=== PATIENT | male | born 1955 | race Caucasian/White ===

== ENCOUNTER 2017-07-28 07:02 | Inpatient (IN) | payer BC ==
[2017-07-28] MEDS ORDERED: Nitroglycerin 2% Ointment 1 INCH/1 GM Packet ONE (07:22)
[2017-07-28 07:32] LABS: #Basophils 0.1 thou/uL (0.0-0.2); #Eosinphils 0.1 thou/uL (0.0-0.7); #Lymphocytes 0.7 thou/uL (1.20-3.40); #Monocytes 0.6 thou/uL (0.11-0.59); #Neutrophils 4.8 thou/uL (1.40-6.50); %Basophils 1.2 % (0.0-1.0); %Eosinophils 0.9 % (0.0-10.0); %Lymphocytes 11.7 % (21.0-51.0); %Monocytes 9.4 % (0.0-10.0); %Neutrophils 76.8 % (42.0-75.0); Hemoglobin 17.5 g/dL (14.0-18.0); Mean Corpuscular HGB CONC 35.1 g/dL (32.0-36.0); Mean Corpuscular Hemoglobin 33.7 pg (27.0-31.0); Mean Corpuscular Volume 95.8 fl (80.0-94.0); Platelet Count 202 thou/uL (130-400); RBC Distribution Width 12.1 % (11.5-14.5); Red Blood Cell (RBC) Count 5.21 mill/uL (4.70-6.10); White Blood Cell (WBC) Count 6.2 thou/uL (4.8-10.8)
[2017-07-28 07:50] LABS: ALT (SGPT) 20 U/L (8-55); AST (SGOT) 82 U/L (5-34); Albumin 4.6 g/dL (3.5-5.0); Alkaline Phosphatase 65 U/L (40-150); Anion Gap 14 mmol/L (10-20); BUN (Urea Nitrogen) 6 mg/dL (8.4-25.7); Bilirubin, Total 0.7 mg/dL (0.2-1.2); CK (CPK) 602 U/L (30-200); Calc. Creatinine Clearance 0 mL/min (70-130); Calcium 9.5 mg/dL (7.8-10.44); Carbon Dioxide 24 mmol/L (22-29); Chloride 94 mmol/L (98-107); Estimated GFR-MDRD Greater than 90; Globulin 2.7 g/dL (2.4-3.5); Glucose 99 mg/dL (70-105); Lipase 17 U/L (8-78); Potassium 4.4 mmol/L (3.5-5.1); Protein, Total 7.3 g/dL (6.0-8.3); Sodium 128 mmol/L (136-145)
[2017-07-28 07:57] LABS: CKMB 55.4 ng/mL (0-6.6); Troponin I 10.222 ng/mL (< 0.028)
--- NOTE | 2017-07-28 08:19 | RAD ---
PORTABLE CHEST 1 VIEW: DATE: 07/28/17. TIME: 7:31 a.m. HISTORY: Chest pain. FINDINGS: There are changes of median sternotomy. The heart size is normal. The aorta is tortuous. The lungs were expanded without focal areas of consolidation, pneumothorax, or pleural effusions. IMPRESSION: No radiographic evidence of acute cardiopulmonary process. POS: [facility]
[2017-07-28] MEDS ORDERED: Enoxaparin Sodium 80 MG/0.8 ML SYRINGE ONE ×2 (08:39→09:31)
[2017-07-28] MEDS ORDERED: Heparin 5,000 UNITS/ML VIAL ONE (08:56)
[2017-07-28] MEDS ORDERED: Heparin 25,000 units/D5W 500 ML IV SCH (09:15)
[2017-07-28] MEDS ORDERED: Ondansetron ODT 4 MG TAB PO PRN (09:27)
[2017-07-28] MEDS ORDERED: Sodium Chloride 0.65% Nasal 44 ML BOT EA NARE PRN (09:27)
[2017-07-28] MEDS ORDERED: Milk Of Magnesia 30 ML UDCUP PO PRN (09:27)
[2017-07-28] MEDS ORDERED: Artificial Tears 18 DROP/0.9 ML EA EYE PRN (09:27)
[2017-07-28] MEDS ORDERED: Acetaminophen 325 MG TAB PO PRN (09:27)
[2017-07-28] MEDS ORDERED: Labetalol HCl 100 MG/20 ML VIAL SLOW IVP PRN (09:27)
[2017-07-28] MEDS ORDERED: Zolpidem Tartrate 5 MG TAB PO PRN (09:27)
[2017-07-28] MEDS ORDERED: Ondansetron HCl/PF 4 MG/2 ML Vial IVP PRN (09:27)
[2017-07-28] MEDS ORDERED: Eucerin (Mineral Oil/Petrolatum,White) 30 gm Jar TOP PRN (09:27)
[2017-07-28] MEDS ORDERED: Chloraseptic Spray 180 ml Bottle PO PRN (09:27)
[2017-07-28] MEDS ORDERED: Diabetic Tussin 200 MG/10 ML UDCUP PO PRN (09:27)
[2017-07-28] MEDS ORDERED: cloNIDine 0.1 MG TAB PO PRN (09:27)
[2017-07-28] MEDS ORDERED: Loperamide HCl 2 MG CAP PO PRN (09:27)
[2017-07-28] MEDS ORDERED: Loratadine 10 MG TAB PO PRN (09:27)
[2017-07-28] MEDS ORDERED: HYDROcodone/Acetaminophen 5/325 mg Tablet PO PRN (09:27)
[2017-07-28] MEDS ORDERED: Nitroglycerin 0.4 MG TAB (25 Tab Bottle) SL PRN (09:27)
[2017-07-28] MEDS ORDERED: Senokot 8.6 MG TAB PO PRN (09:27)
[2017-07-28] MEDS ORDERED: Mag-Al 1200 mg/1200 mg/30 ML UDCUP PO PRN (09:27)
[2017-07-28] MEDS ORDERED: Nicotine 21 MG PATCH TD PRN (09:37)
--- NOTE | 2017-07-28 09:59 | HP ---
PRIMARY CARE PHYSICIAN: [facility]. REASON FOR ADMISSION: Non-STEMI. HISTORY OF PRESENT ILLNESS: A 61-year-old male who has history of coronary artery disease as well as he required a CABG x3 in 2006 and he reports that he has total of 7 stents. He was not taking any m edication for the last couple of years. The patient reports that when he was hospitalized in our [facility] in 2014 at that time he had a normal blood pressure without blood pressure medication and since then he stopped taking blood pressure medication and he did not check his vitals and even he did not see primary care physician or his dresser tender. Before that the patient was taking [address] Jenkins, but he has not seen him since . Even he did not make any appointment with primary care physician and he reports that he was not taking any medication. Last night around 9:00 p.m. he was having a little bit uncomfortable in his chest area which was retr osternal in location about 2/10 in intensity, but he was able to go to bed and around 3:00 a.m. he wo ke up with severe chest pain about 10/10 in intensity, which was pressure-like sensation associated w ith 1 episode of vomiting, nausea and diaphoresis. The pain was intense up until 6 a.m. in the morni ng which slowly subsided by that time. The patient decided to go to emergency room this morning arou nd 7, he came to ER. When he came to the ER at that time his pain was already improving and currentl y when I saw this patient in the emergency room he is completely pain free. Today in the emergency r oom routine blood tests showed [id number] elevation myocardial infarction. His troponin and CK-M B significantly elevated and he has low sodium. He was hypertensive. He denies any headache, focal motor symptoms or sensory symptoms. He denies any palpitation, dizziness, syncope. He denies any or thopnea, PND or leg swelling. He denies any fever or chills. He denies any cough. He denies any [place] I symptoms. He denies any constipation, diarrhea, melena, hematochezia. He denies any dyspnea on ex ertion. ALLERGIES: No known drug allergy. CURRENT HOME MEDICATIONS: Currently patient is not taking any prescribed or non-prescribed medicatio n. REVIEW OF SYSTEMS: The following complete review of systems was negative, unless otherwise mentioned in the HPI or below: Constitutional: Weight loss or gain, ability to conduct usual activities. Skin: Rash, itching. Eyes: Double vision, pain. ENT/Mouth: Nose bleeding, neck stiffness, pain, tenderness. Cardiovascular: Palpitations, dyspnea on exertion, orthopnea. Respiratory: Shortness of breath, wheezing, cough, hemoptysis, fever or night sweats. Gastrointestinal: Poor appetite, abdominal pain, heartburn, nausea, vomiting, constipation, or diarrhea. Genitourinary: Urgency, frequency, dysuria, nocturia. Musculoskeletal: Pain, swelling. Neurologic/Psychiatric: Anxiety, depression. Allergy/Immunologic: Skin rash, bleeding tendency. Please see my HPI for pertinent positive and negative. All other review of systems reviewed and nega tive except as mentioned in the HPI. PAST MEDICAL HISTORY: Coronary artery disease, required CABG in 2002 as well as several stents, hype rtension, dyslipidemia, tobacco abuse disorder, history of admission for cavitary pneumonia in 2014. PAST PSYCHIATRIC HISTORY: Reviewed and negative. PAST SURGICAL HISTORY: CABG x3 in 2001 or 2002. Patient had several stent placements with a cardiac catheterization. FAMILY HISTORY: The patient denies any strong family history of premature coronary artery disease, s troke or cancer. SOCIAL HISTORY: Patient is single. He smokes about 1 pack per day for last 30 years. He drinks alc ohol occasionally. He denies any other illicit drug abuse. He is working in [employer] and [employer]. PHYSICAL EXAMINATION: VITAL SIGNS: Currently, blood pressure 199/108, pulse 87, respiratory rate 18, temperature 98.8, sat uration 97% on room air, weight 77.1 kilograms. GENERAL: The patient is currently alert, awake, no obvious acute distress. HEENT: Head; normocephalic, atraumatic. Eyes: Pupils round, reactive to light. Extraocular muscle intact. ENT: Oropharynx within normal limits. Moist mucous membranes. No oral lesion, no pharyng eal erythema, no exudate. NECK: Supple, no JVD, no thyromegaly, no carotid bruit, no jugular venous distention. LUNGS: Few end expiratory wheezing heard, but no rhonchi, and no rales. CARDIAC: S1, S2 regular, slight tachycardia, no murmur, no gallop, no rub. ABDOMEN: Soft, bowel sounds present, nontender, nondistended. No organomegaly, no mass, no suprapub ic tenderness. BACK: Unremarkable, no CVA tenderness. EXTREMITIES: Upper extremity passive movement of all joints are normal. Lower extremities: No armand a. Good peripheral pulsation. SKIN: No skin rash. HEMATOLOGICAL: No lymphadenopathy. PSYCHIATRIC: Normal affect. SIGNIFICANT LABS: 1. EKG showing normal sinus rhythm, and LVH. 2. CBC: WBC 6.2, hemoglobin 17.5, platelet 202, MCV 95.8. BMP: Sodium 128, potassium 4.4, chlorid e 94, carbon dioxide 24, anion gap 14, BUN 6, creatinine 0.74, glucose 99, calcium 9.5. 3. LFTs: AST 82, ALT 20, alkaline phosphatase 65, albumin 4.6, lipase 17, CK 606. CK-MB 55.4, trop onin 10.222, BNP 134.8. Chest x-ray based on my review, no acute cardiopulmonary process. ASSESSMENT AND PLAN: 1. [id number] elevation myocardial infarction. The patient has classic history of angina which was acute onset recurrent and associated with a significantly abnormal troponin. At this point, the patient is chest pain free after emergency room treatment. In the emergency room we started with asp irin, Lovenox 1 mg/kg and nitroglycerin. Cardiology will be consulted. We will obtain echocardiogra phy. We will treat medically with aspirin, beta huber with metoprolol 25 mg twice daily, nitropatc h q.8 hourly, statin therapy with Lipitor 40 mg p.o. at bedtime and heparin drip as per Cardiology re commendation. The patient will need a cardiac catheterization either today or tomorrow. We will mon itor on telemetry floor. We will also add Plavix 75 mg p.o. daily. We will do serial cardiac enzyme s and check lipid profile tomorrow morning for risk stratification. 2. Coronary artery disease with a history of coronary artery bypass graft. The patient is not takin g any medication at this point and based on the above we started aspirin, Plavix, Lipitor, metoprolol , nitropatch on his regimen and based on echocardiographic we will also consider adding MYAH inhibitor . 3. Hyponatremia, hypochloremia, likely related with his chronic lung disease, but we will check urin alysis, sodium urine creatinine urine, osmolarity in serum and urine, TSH as a part of workup. 4. Hypertension. We are starting nitropatch, metoprolol 25 mg p.o. b.i.d. and we will consider usin g labetalol, and clonidine p.r.n. basis for high blood pressure. 5. Dyslipidemia. We will start Lipitor 40 mg p.o. at bedtime and check lipid profile tomorrow ramos gurrola. 6. Tobacco abuse disorder. Smoking cessation counseling given and we will offer nicotine patch if n eeded only. 7. Rhabdomyolysis. The patient has elevated total CK and AST also elevated and this is all related with his myocardial infarction and we will repeat total CK level tomorrow. Given the patient has carina vated BNP, we will avoid giving him too much fluid. We will also check TSH and if statin is getting worse, then we will consider holding statin therapy. 8. Deep venous thrombosis prophylaxis. Patient is already on heparin drip. 9. Gastrointestinal prophylaxis, Pepcid 20 mg p.o. b.i.d. 10. Code status: The patient is FULL CODE. Patient does not have any surrogate decision maker. Disposition plan based on clinical course. We are expecting the patient's stay in hospital more than 2 midnights. Plan of care discussed with the patient in detail.
[2017-07-28 10:19] LABS: Thyroid Stimulating Hormone 1.5719 uIU/mL (0.35-4.94)
[2017-07-28 11:23] LABS: Troponin I 21.933 ng/mL (< 0.028)
--- NOTE | 2017-07-28 12:03 | CON ---
DATE OF CONSULTATION: 07/28/2017 REASON FOR CONSULTATION: Non-ST elevation myocardial infarction. HISTORY OF PRESENT ILLNESS: Mr. Les Gillespie is a 61-year-old man with the above problem. Mr. Gillespie stated he had a history of previous bypass surgery and multiple stents implanted by Dr. Jenkins. 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 He states at about 9:00 last n ight he started having chest pain. The chest pain went all night, it intensified in the early mornin g hours. He came here to the hospital where he received aspirin. He received nitrates and the pain resolved. He is pain free now. PAST MEDICAL HISTORY: 1. The patient has a history of bypass surgery x3 [place] [address] Muro here at this hospital. 2. The patient said he had "7 stents" placed by Dr. Jenkins at [facility] in 2009 . MEDICATIONS: The patient states he has not been taking any medications, not even aspirin. He has not been getting followup. ALLERGIES: None known. SOCIAL HISTORY: He continues to smoke one pack of cigarettes per day. Alcohol negative. REVIEW OF SYSTEMS: CONSTITUTIONAL: No significant weight gain or loss. VISION: No changes. HEARING: No changes. PULMONARY: No cough or wheezing. GASTROINTESTINAL: No nausea, vomiting, diarrhea. SKIN: No rashes. NEUROLOGIC: No unilateral weakness or numbness. PSYCHIATRIC: No unusual depression or anxiety. HEMATOLOGIC: No unusual bruising. GENITOURINARY: No burning with urination. PHYSICAL EXAMINATION: GENERAL: This is a thin 61-year-old gentleman, looks older than his chronologic age. VITAL SIGNS: Blood pressure 150/80, pulse in the 60s. HEENT: Eyes; sclerae nonicteric. Mouth mucous membranes moist. NECK: Supple, no lymphadenopathy. LUNGS: Clear, no wheezing, rales or rhonchi. CARDIAC: Normal S1, normal S2. There is no murmur, rub or gallop. ABDOMEN: Soft, nontender. EXTREMITIES: No clubbing or cyanosis. There is no edema. Peripheral pulses are intact. SKIN: Warm and dry. PSYCHIATRIC: Mood and affect normal. PERTINENT LABORATORY: The EKG looks like what is a low atrial rhythm or junctional rhythm with inver ofelia P waves in lead 3 on the EKG at 8:01. Another EKG; however, the P-wave more normal, sinus rhythm . There is a Q-wave in aVL with T-wave inversions in that lead. Some very mild T-wave inversion in lead 1. Troponin level is 10.2. BNP 134.8, sodium 128. ASSESSMENT: 1. Previous coronary artery bypass grafting. 2. Previous stent implantation "7 stents" according to the patient. 3. Continued smoking. 4. Non-ST elevation myocardial infarction. 5. Hyponatremia. Sodium level 128. 6. Noncompliance as outlined above. PLAN: 1. Try and obtain old records. 2. Will need to go to cardiac catheterization lab, ideally would like to have further information ab out the location of the bypass graft and stents. 3. Anticoagulation either with heparin or Lovenox. 4. Will need to avoid excess free water. 5. We will go ahead and give him Plavix. 6. Statin. 7. Beta blockers. 8. Nitrates. 9. Antiplatelet drugs. 10. We will continue to follow with you.
[2017-07-28 14:08] LABS: Critical Call Chem Troponin I RESULT DECREASING; Troponin I 20.749 ng/mL (< 0.028)
[2017-07-28] MEDS: Nitroglycerin 2% Ointment 1 INCH/1 GM Packet TOP SCH ×2 (14:39→21:53)
[2017-07-28 14:53] VITALS: BMI 21.1
[2017-07-28] MEDS ORDERED: Enoxaparin Sodium 80 MG/0.8 ML SYRINGE SC SCH ×2 (18:30→21:00)
[2017-07-28] MEDS ORDERED: predniSONE 20 MG TAB PO SCH ×2 (18:30→23:55)
[2017-07-28] MEDS ORDERED: Famotidine 20 MG TAB PO SCH ×2 (18:30→21:00)
[2017-07-28] MEDS ORDERED: Clopidogrel Bisulfate 75 MG TAB PO SCH (18:30)
[2017-07-28] MEDS ORDERED: Enoxaparin Sodium 40 MG/0.4 ML SYRINGE SC SCH (18:30)
[2017-07-28 18:31] LABS: Bilirubin Negative (Negative); Blood, Urine Negative (Negative); Clarity CLEAR (Clear); Glucose, Urine (Dipstick) Negative (Negative); Leukocyte Negative (Negative); Nitrite Negative (Negative); Protein, Urine (Dipstick) Negative (Neg-Trace); Specific Gravity, Urine 1.008 (1.002-1.036); Urobilinogen 0.2 mg/dL (0.2-1.0); pH, Urine 6.5 (5.0-9.0)
[2017-07-28 18:34] LABS: Bacteria/HPF None Seen HPF (None Seen); Hyaline Casts/LPF 0-3 HYALINE CAST LPF (0-3 Hyaline); RBC/HPF 0-3 HPF (0-3); Squamous Epithelial None Seen HPF (0-3); WBC/HPF None Seen HPF (0-3)
[2017-07-28 18:40] LABS: Osmolality, Urine 368 mOsm/kg (300-900)
[2017-07-28 18:49] LABS: Sodium, Urine 57 mmol/L (Not Available)
[2017-07-28] MEDS ORDERED: Atorvastatin Calcium 40 MG TAB PO SCH (21:00)
[2017-07-28] MEDS: Metoprolol Tartrate 25 MG TAB PO SCH (21:53)
[2017-07-29] MEDS: Nitroglycerin 2% Ointment 1 INCH/1 GM Packet TOP SCH ×3 (05:40→21:53)
[2017-07-29] MEDS: Famotidine 20 MG TAB PO SCH ×2 (05:40→17:26)
[2017-07-29] MEDS: Sodium Chloride 0.9% 1,000 ML IV SCH ×2 (05:41→15:52)
[2017-07-29] MEDS: Metoprolol Tartrate 25 MG TAB PO SCH ×2 (05:41→21:53)
[2017-07-29] MEDS ORDERED: predniSONE 20 MG TAB PO SCH (06:00)
[2017-07-29] MEDS ORDERED: Diazepam 5 MG TAB PO SCH (06:00)
[2017-07-29 06:07] LABS: #Lymphocytes 0.4 thou/uL (1.20-3.40); #Monocytes 0.2 thou/uL (0.11-0.59); #Neutrophils 4.3 thou/uL (1.40-6.50); %Basophils 0.1 % (0.0-1.0); %Eosinophils 0.2 % (0.0-10.0); %Lymphocytes 7.1 % (21.0-51.0); %Neutrophils 87.6 % (42.0-75.0); Hemoglobin 17.5 g/dL (14.0-18.0); Mean Corpuscular HGB CONC 33.6 g/dL (32.0-36.0); Mean Corpuscular Hemoglobin 31.6 pg (27.0-31.0); Mean Corpuscular Volume 94.1 fl (80.0-94.0); Mean Platelet Volume 7.2 fL (7.4-10.4); Platelet Count 220 thou/uL (130-400); RBC Distribution Width 12.1 % (11.5-14.5); Red Blood Cell (RBC) Count 5.53 mill/uL (4.70-6.10); White Blood Cell (WBC) Count 4.9 thou/uL (4.8-10.8)
[2017-07-29 06:31] LABS: ALT (SGPT) 22 U/L (8-55); AST (SGOT) 72 U/L (5-34); Albumin 4.4 g/dL (3.5-5.0); Alkaline Phosphatase 62 U/L (40-150); Anion Gap 15 mmol/L (10-20); BUN (Urea Nitrogen) 10 mg/dL (8.4-25.7); Bilirubin, Total 0.7 mg/dL (0.2-1.2); CK (CPK) 252 U/L (30-200); Calc. Creatinine Clearance 86 mL/min (70-130); Calcium 9.9 mg/dL (7.8-10.44); Carbon Dioxide 26 mmol/L (22-29); Cardiac Risk 3.7 (Less than 4.5); Chloride 95 mmol/L (98-107); Cholesterol 215 mg/dl (< 200 Desired); Estimated GFR-MDRD 87; Globulin 2.7 g/dL (2.4-3.5); Glucose 140 mg/dL (70-105); HDL Cholesterol 58 mg/dL (>60 Neg Risk); LDL Cholesterol, Calculated 143 mg/dL; Potassium 4.8 mmol/L (3.5-5.1); Protein, Total 7.1 g/dL (6.0-8.3); Sodium 131 mmol/L (136-145); Triglycerides 69 mg/dL (Less than 150)
[2017-07-29] MEDS ORDERED: Lidocaine 1% (PF) 30 ML VIAL ONE (08:11)
[2017-07-29] MEDS ORDERED: Midazolam HCl 2 mg/2 ml Vial ONE (08:35)
[2017-07-29] MEDS ORDERED: Fentanyl 100 MCG/2 ML VIAL ONE (08:35)
[2017-07-29] MEDS ORDERED: diphenhydrAMINE 50 MG/ML VIAL ONE (08:47)
[2017-07-29] MEDS ORDERED: Iopamidol 370 76% 100 ML VIAL ONE (08:51)
--- NOTE | 2017-07-29 09:13 | PDOC.PN ---
- Subjective Encounter Start Date: 07/29/17 Encounter Start Time: 08:00 Patient seen and examined. No new complaints. No overnight events - Objective Resuscitation Status: Resuscitation Status FULL:Full Resuscitation MAR Reviewed: Yes Vital Signs & Weight: Vital Signs (12 hours) Temp Pulse Resp BP Pulse Ox 07/29/17 08:02 98.1 F 68 16 101/63 94 L 07/29/17 04:00 98.7 F 78 18 118/69 94 L 07/29/17 00:26 97.2 F L 80 20 119/73 96 Weight Weight 151 lb I&O: 07/28/17 07/29/17 07/30/17 06:59 06:59 06:59 Intake Total 970 Output Total 1700 Balance -730 Result Diagrams: 07/29/17 04:47 07/29/17 04:47 Radiology Reviewed by me: Yes (echo) EKG Reviewed by me: Yes (nsr) Phys Exam - Physical Examination Constitutional: NAD HEENT: PERRLA, moist MMs, sclera anicteric, oral pharynx no lesions Neck: no nodes, no JVD, supple, full ROM Respiratory: no wheezing, no rales, no rhonchi Cardiovascular: RRR, no significant murmur, no rub Gastrointestinal: soft, non-tender, no distention, positive bowel sounds Musculoskeletal: no edema, pulses present Neurological: non-focal, normal sensation, moves all 4 limbs Psychiatric: normal affect, A&O x 3 Skin: no rash, normal turgor Dx/Plan (1) NSTEMI (non-ST elevated myocardial infarction) Code(s): I21.4 - NON-ST ELEVATION (NSTEMI) MYOCARDIAL INFARCTION Status: Acute (2) Combined systolic and diastolic cardiac dysfunction Code(s): I51.89 - OTHER ILL-DEFINED HEART DISEASES Status: Acute (3) Hyponatremia Code(s): E87.1 - HYPO-OSMOLALITY AND HYPONATREMIA Status: Acute (4) Rhabdomyolysis Code(s): M62.82 - RHABDOMYOLYSIS Status: Acute (5) CAD (coronary artery disease) Code(s): I25.10 - ATHSCL HEART DISEASE OF [place] CORONARY ARTERY W/O ANG PCTRS Status: Chronic (6) Dyslipidemia Code(s): E78.5 - HYPERLIPIDEMIA, UNSPECIFIED Status: Chronic (7) Hypertension Code(s): I10 - ESSENTIAL (PRIMARY) HYPERTENSION Status: Chronic (8) Noncompliance with medication regimen Code(s): Z91.14 - PATIENT'S OTHER NONCOMPLIANCE WITH MEDICATION REGIMEN Status : Chronic (9) Tobacco abuse Code(s): Z72.0 - TOBACCO USE Status: Chronic - Plan cont current plan of care * continue current optimum medical therapy for NSTEMI * add lisinopril * cardiac cath today after preparation for contrast allergy * continue cardiac rehab * will monitor today * plan for discharge in 24-48 hours if stable * medication reviewed as below * symptomatic treatment. Review of Systems - Review of Systems Constitutional: negative: fever, chills, sweats, weakness, malaise, other ENT: negative: Ear Pain, Ear Discharge, Nose Pain, Nose Discharge, Nose Congestion, Mouth Pain, Mouth Swelling, Throat Pain, Throat Swelling, Other Respiratory: negative: Cough, Dry, Shortness of Breath, Hemoptysis, SOB with Excertion, Pleuritic Pain, Sputum, Wheezing Cardiovascular: negative: chest pain, palpitations, orthopnea, paroxysmal nocturnal dyspnea, edema, light headedness, other Gastrointestinal: negative: Nausea, Vomiting, Abdominal Pain, Diarrhea, Constipation, Melena, Hematochezia, Other Genitourinary: negative: Dysuria, Frequency, Incontinence, Hematuria, Retention , Other Musculoskeletal: negative: Neck Pain, Shoulder Pain, Arm Pain, Back Pain, Hand Pain, Leg Pain, Foot Pain, Other Skin: negative: Rash, Lesions, Jeff, Bruising, Other - Medications/Allergies Allergies/Adverse Reactions: Allergies Allergy/AdvReac Type Severity Reaction Status Date / Time Iodinated Contrast- Oral and Allergy Mild Verified 07/28/17 18:11 IV Dye Medications: Current Medications Acetaminophen (Tylenol) 650 mg PO Q4H PRN PRN Reason: Headache/Fever or Pain Hydrocodone Bitart/Acetaminophen ([place] 5/325) 1 tab PO Q4H PRN PRN Reason: Moderate Pain (4-6) Al Hydroxide/Mg Hydroxide (Maalox) 30 ml PO Q6H PRN PRN Reason: Heartburn or Indigestion Artificial Tears (Tears Naturale) 0 drop EA EYE PRN PRN PRN Reason: Dry Eyes Aspirin (Aspirin) 325 mg PO DAILY [facility] Atorvastatin Calcium (Lipitor) 40 mg PO HS [facility] Last Admin: 07/28/17 21:53 Dose: 40 mg Clonidine (Catapres) 0.1 mg PO Q4H PRN PRN Reason: Systolic BP > 180 Clopidogrel Bisulfate (Plavix) 75 mg PO QAM [facility] Diazepam (Valium) 5 mg PO 0600 [facility] Stop: 07/29/17 12:00 Last Admin: 07/29/17 08:10 Dose: 5 mg Famotidine (Pepcid) 40 mg PO 0600,1800 [facility] Last Admin: 07/29/17 05:40 Dose: 40 mg Guaifenesin (Robitussin Sf) 200 mg PO Q4H PRN PRN Reason: Cough Sodium Chloride (Normal Saline 0.9%) 1,000 mls @ 100 mls/hr IV .Q10H [facility] Last Admin: 07/29/17 05:41 Dose: 1,000 mls Labetalol HCl (Normodyne) 20 mg SLOW IVP Q4H PRN PRN Reason: Systolic BP > 180 Loperamide HCl (Imodium) 2 mg PO PRN PRN PRN Reason: Diarrhea/Loose Stools Loratadine (Claritin) 10 mg PO DAILYPRN PRN PRN Reason: Sinus Symptoms Magnesium Hydroxide (Milk Of Magnesium) 30 ml PO DAILYPRN PRN PRN Reason: Constipation Metoprolol Tartrate (Lopressor) 25 mg PO BID [facility] Last Admin: 07/29/17 05:41 Dose: 25 mg Mineral Oil/White Petrolatum (Eucerin Cream) 0 gm TOP BIDPRN PRN PRN Reason: Dry Skin Miscellaneous Information (Communication Order-Pharmacy) 0 each FS ONE [facility] Stop: 07/29/17 18:16 Nicotine (Nicoderm Patch) 21 mg TD DAILY PRN PRN Reason: Smoking Cessation Nitroglycerin (Nitrostat) 0.4 mg SL Q5MIN PRN PRN Reason: Chest Pain Nitroglycerin (Nitro-Bid 2% Ointment) 0.5 inch TOP Q8HR [facility] Last Admin: 07/29/17 05:40 Dose: 0.5 inch Ondansetron HCl (Zofran Odt) 4 mg PO Q6H PRN PRN Reason: Nausea/Vomiting Ondansetron HCl (Zofran) 4 mg IVP Q6H PRN PRN Reason: Nausea/Vomiting Phenol (Chloraseptic [place] 180 Ml Bot) 0 ml PO PRN PRN PRN Reason: Sore Throat Senna (Senokot) 2 tab PO HSPRN PRN PRN Reason: Constipation Sodium Chloride ([place] Nasal [place] 0.65%) 0 ml EA NARE QIDPRN PRN PRN Reason: Nasal Congestion Sodium Chloride (Flush - Normal Saline) 10 ml IVF Q12HR [facility] Last Admin: 07/28/17 21:53 Dose: 10 ml Sodium Chloride (Flush - Normal Saline) 10 ml IVF PRN PRN PRN Reason: Saline Flush Zolpidem Tartrate (Ambien) 5 mg PO HSPRN PRN PRN Reason: Insomnia
[2017-07-29] MEDS ORDERED: Acetaminophen/Codeine 30-300mg Tablet PO PRN ×2 (09:35)
[2017-07-29] MEDS ORDERED: Atorvastatin Calcium 40 MG TAB PO SCH (09:35)
[2017-07-29] MEDS ORDERED: traMADol HCl 50 MG TAB PO PRN (09:35)
[2017-07-29] MEDS ORDERED: Nitroglycerin 0.4 MG TAB (25 Tab Bottle) SL PRN (09:35)
[2017-07-29] MEDS ORDERED: Sodium Chloride 0.9% 200 ML IV SCH (09:45)
[2017-07-29] MEDS: Aspirin 325 MG TAB PO SCH (11:25)
[2017-07-29] MEDS: Clopidogrel Bisulfate 75 MG TAB PO SCH (11:25)
[2017-07-29] MEDS: Lisinopril 2.5 MG TAB PO SCH (11:26)
[2017-07-30] MEDS: Nitroglycerin 2% Ointment 1 INCH/1 GM Packet TOP SCH (05:55)
[2017-07-30] MEDS: Famotidine 20 MG TAB PO SCH (05:55)
[2017-07-30] MEDS: Lisinopril 2.5 MG TAB PO SCH (07:52)
[2017-07-30] MEDS: Metoprolol Tartrate 25 MG TAB PO SCH (07:52)
[2017-07-30] MEDS: Clopidogrel Bisulfate 75 MG TAB PO SCH (07:52)
[2017-07-30] MEDS: Aspirin 325 MG TAB PO SCH (07:52)
--- NOTE | 2017-07-30 09:12 | PDOC.PN ---
- Subjective Encounter Start Date: 07/30/17 Encounter Start Time: 07:20 Patient seen and examined. No new complaints. No overnight events - Objective Resuscitation Status: Resuscitation Status FULL:Full Resuscitation MAR Reviewed: Yes Vital Signs & Weight: Vital Signs (12 hours) Temp Pulse Resp BP Pulse Ox 07/30/17 07:52 65 07/30/17 07:50 98.4 F 65 17 115/60 96 07/30/17 03:48 98.2 F 80 18 107/58 L 97 07/30/17 00:00 98 F 58 L 19 106/56 L 97 Weight Weight 157 lb I&O: 07/29/17 07/30/17 07/31/17 06:59 06:59 06:59 Intake Total 970 2228 Output Total 1700 2975 Balance -730 -747 Result Diagrams: 07/29/17 04:47 07/29/17 04:47 EKG Reviewed by me: Yes (nsr) Phys Exam - Physical Examination Constitutional: NAD HEENT: PERRLA, moist MMs, sclera anicteric Neck: no JVD, supple Respiratory: no wheezing, no rales, no rhonchi Cardiovascular: RRR, no significant murmur, no rub Gastrointestinal: soft, non-tender, no distention, positive bowel sounds Musculoskeletal: no edema, pulses present Neurological: non-focal, normal sensation, moves all 4 limbs Lymphatic: no nodes Psychiatric: normal affect, A&O x 3 Skin: no rash, normal turgor Dx/Plan (1) NSTEMI (non-ST elevated myocardial infarction) Code(s): I21.4 - NON-ST ELEVATION (NSTEMI) MYOCARDIAL INFARCTION Status: Acute (2) Combined systolic and diastolic cardiac dysfunction Code(s): I51.89 - OTHER ILL-DEFINED HEART DISEASES Status: Acute (3) Hyponatremia Code(s): E87.1 - HYPO-OSMOLALITY AND HYPONATREMIA Status: Acute (4) Rhabdomyolysis Code(s): M62.82 - RHABDOMYOLYSIS Status: Acute (5) CAD (coronary artery disease) Code(s): I25.10 - ATHSCL HEART DISEASE OF [place] CORONARY ARTERY W/O ANG PCTRS Status: Chronic (6) Dyslipidemia Code(s): E78.5 - HYPERLIPIDEMIA, UNSPECIFIED Status: Chronic (7) Hypertension Code(s): I10 - ESSENTIAL (PRIMARY) HYPERTENSION Status: Chronic (8) Noncompliance with medication regimen Code(s): Z91.14 - PATIENT'S OTHER NONCOMPLIANCE WITH MEDICATION REGIMEN Status : Chronic (9) Tobacco abuse Code(s): Z72.0 - TOBACCO USE Status: Chronic - Plan cont current plan of care * medication reviewed as below * symptomatic treatment * s/p cardiac cath and medical therapy advised * will continue current optimum medical therapy and adjust dose of medication * will consider discharge tomorrow. Review of Systems - Review of Systems Eyes: negative: Pain, Vision Change, Conjunctivae Inflammation, Eyelid Inflammation, Redness, Other ENT: negative: Ear Pain, Ear Discharge, Nose Pain, Nose Discharge, Nose Congestion, Mouth Pain, Mouth Swelling, Throat Pain, Throat Swelling, Other Respiratory: negative: Cough, Dry, Shortness of Breath, Hemoptysis, SOB with Excertion, Pleuritic Pain, Sputum, Wheezing Cardiovascular: negative: chest pain, palpitations, orthopnea, paroxysmal nocturnal dyspnea, edema, light headedness, other Gastrointestinal: negative: Nausea, Vomiting, Abdominal Pain, Diarrhea, Constipation, Melena, Hematochezia, Other Genitourinary: negative: Dysuria, Frequency, Incontinence, Hematuria, Retention , Other Musculoskeletal: negative: Neck Pain, Shoulder Pain, Arm Pain, Back Pain, Hand Pain, Leg Pain, Foot Pain, Other Skin: negative: Rash, Lesions, Jeff, Bruising, Other - Medications/Allergies Allergies/Adverse Reactions: Allergies Allergy/AdvReac Type Severity Reaction Status Date / Time Iodinated Contrast- Oral and Allergy Mild Verified 07/28/17 18:11 IV Dye Medications: Current Medications Acetaminophen (Tylenol) 650 mg PO Q4H PRN PRN Reason: Headache/Fever Acetaminophen/Codeine Phosphate (Tylenol #3) 1 tab PO Q4H PRN PRN Reason: Moderate Pain (4-6) Acetaminophen/Codeine Phosphate (Tylenol #3) 2 tab PO Q4H PRN PRN Reason: Severe Pain (7-10) Hydrocodone Bitart/Acetaminophen ([place] 5/325) 1 tab PO Q4H PRN PRN Reason: Breakthrough Pain Al Hydroxide/Mg Hydroxide (Maalox) 30 ml PO Q6H PRN PRN Reason: Heartburn or Indigestion Artificial Tears (Tears Naturale) 0 drop EA EYE PRN PRN PRN Reason: Dry Eyes Aspirin (Aspirin) 325 mg PO DAILY [facility] Last Admin: 07/30/17 07:52 Dose: 325 mg Atorvastatin Calcium (Lipitor) 80 mg PO HS [facility] Last Admin: 07/29/17 21:52 Dose: 80 mg Clonidine (Catapres) 0.1 mg PO Q4H PRN PRN Reason: Systolic BP > 180 Clopidogrel Bisulfate (Plavix) 75 mg PO QAM [facility] Last Admin: 07/30/17 07:52 Dose: 75 mg Famotidine (Pepcid) 40 mg PO 0600,1800 [facility] Last Admin: 07/30/17 05:55 Dose: 40 mg Guaifenesin (Robitussin Sf) 200 mg PO Q4H PRN PRN Reason: Cough Labetalol HCl (Normodyne) 20 mg SLOW IVP Q4H PRN PRN Reason: Systolic BP > 180 Lisinopril (Zestril) 2.5 mg PO DAILY [facility] Last Admin: 07/30/17 07:52 Dose: 2.5 mg Loperamide HCl (Imodium) 2 mg PO PRN PRN PRN Reason: Diarrhea/Loose Stools Loratadine (Claritin) 10 mg PO DAILYPRN PRN PRN Reason: Sinus Symptoms Magnesium Hydroxide (Milk Of Magnesium) 30 ml PO DAILYPRN PRN PRN Reason: Constipation Metoprolol Tartrate (Lopressor) 25 mg PO BID [facility] Last Admin: 07/30/17 07:52 Dose: 25 mg Mineral Oil/White Petrolatum (Eucerin Cream) 0 gm TOP BIDPRN PRN PRN Reason: Dry Skin Nicotine (Nicoderm Patch) 21 mg TD DAILY PRN PRN Reason: Smoking Cessation Nitroglycerin (Nitrostat) 0.4 mg SL Q5MIN PRN PRN Reason: Chest Pain Nitroglycerin (Nitro-Bid 2% Ointment) 0.5 inch TOP Q8HR [facility] Last Admin: 07/30/17 05:55 Dose: 0.5 inch Nitroglycerin (Nitrostat) 0.4 mg SL Q5MIN PRN PRN Reason: Chest Pain Ondansetron HCl (Zofran Odt) 4 mg PO Q6H PRN PRN Reason: Nausea/Vomiting Ondansetron HCl (Zofran) 4 mg IVP Q6H PRN PRN Reason: Nausea/Vomiting Phenol (Chloraseptic [place] 180 Ml Bot) 0 ml PO PRN PRN PRN Reason: Sore Throat Senna (Senokot) 2 tab PO HSPRN PRN PRN Reason: Constipation Sodium Chloride ([place] Nasal [place] 0.65%) 0 ml EA NARE QIDPRN PRN PRN Reason: Nasal Congestion Sodium Chloride (Flush - Normal Saline) 10 ml IVF Q12HR [facility] Last Admin: 07/30/17 07:52 Dose: 10 ml Sodium Chloride (Flush - Normal Saline) 10 ml IVF PRN PRN PRN Reason: Saline Flush Tramadol HCl (Ultram) 50 mg PO Q6H PRN PRN Reason: Mild Pain (1-3) Zolpidem Tartrate (Ambien) 5 mg PO HSPRN PRN PRN Reason: Insomnia
--- NOTE | 2017-07-30 11:31 | DIS ---
DATE OF ADMISSION: 07/28/2017 DATE OF DISCHARGE: 07/30/2017 PRIMARY CARE PHYSICIAN: Dr. Eliezer Tinoco. DISCHARGE DISPOSITION: Home. PRIMARY DISCHARGE DIAGNOSES: 1. Wxb-JK-kfrpqmeap myocardial infarction. 2. Hyponatremia. 3. Systolic and diastolic dysfunction. 4. Mild rhabdomyolysis. SECONDARY DISCHARGE DIAGNOSES: Coronary artery disease, hypertension, dyslipidemia, noncompliance wi th medical regimen, tobacco abuse disorder. PRIMARY PROCEDURE/OPERATION: Cardiac catheterization was performed by Dr. Casey. The patient was f ound with a 3-vessel CAD. All bypass grafts were patent. The patient was advised to do medical ther apy. RADIOLOGICAL INVESTIGATION: Echocardiography showed EF 45%-50%, diastolic dysfunction. Chest x-ray was normal. SIGNIFICANT LABORATORY DATA: WBC 4.9, hemoglobin 17.5, platelets 220. Sodium 131, potassium 4.8, BU N 10, creatinine 0.89, calcium 9.9, AST 72, ALT 22, alkaline phosphatase 62, CK 252. Troponin 20.749 , LDL 143, HDL 58. TSH 1.57. BNP 134.8. Urinalysis normal. DISCHARGE MEDICATIONS: Aspirin 81 mg p.o. daily, Lipitor 80 mg p.o. at bedtime, Plavix 75 mg p.o. da eleni, Pepcid 20 mg p.o. b.i.d., lisinopril 2.5 mg p.o. daily, metoprolol tartrate 25 mg p.o. b.i.d. CONTRAINDICATIONS: None. CODE STATUS: FULL CODE. INPATIENT CONSULTANTS: Dr. Casey was consulted while in hospital. TEST RESULTS PENDING ON DISCHARGE: None. ALLERGIES: IODINATED CONTRAST MEDIA. DISCHARGE PLAN: Post hospital, the patient will follow up with primary care physician and cardiologi st as instructed. HOSPITAL COURSE: This is a 61-year-old male, who has coronary artery disease as well as previous his tory of CABG and he was not taking any medication for his heart including blood pressure medicine for the last couple of years and he was smoking every day basis. He was admitted by me. Please see my HPI for further detail. He was having acute chest pain during night time and he had worse chest pain during morning, and that is why he came to emergency room. He was chest pain free when he arrived t o ER, but his troponin was elevated and subsequently troponin significantly elevated in non-STEMI ran ge. His electrocardiogram was showing nonspecific changes. He had hyponatremia. We admitted this p atient on telemetry floor. We treated him with aspirin, Plavix, statin therapy, and/or low-molecular -weight heparin. Cardiology was consulted and we did echocardiography. Echocardiography showed systolic and diastolic dysfunction. While in hospital, we also provided smoking cessation counseling, as patient has contrast allergy, an d that is why we prepared him for a cardiac catheterization and patient had cardiac catheterization d one and he was found with 3-vessel CAD, but his graft was patent. Dr. Casey recommended medical the rapy. During this admission, we started above-mentioned medications. The patient is seen and examined at bedside today. Patient is medically stable, but we are trying to adjust his medication. Whenever Cardiology okay, then we will consider discharging him home.
--- NOTE | 2017-07-30 11:41 | PRG ---
DATE OF SERVICE: 07/30/2017 SUBJECTIVE: Mr. Gillespie is doing well. No chest pain or pressure. PHYSICAL EXAMINATION: VITAL SIGNS: His blood pressure 115/60 and pulse 65 and regular. LUNGS: Clear. CARDIAC: Normal S1 and normal S2. ABDOMEN: Soft and nontender. EXTREMITIES: No edema. ASSESSMENT: 1. Status post cvp-PP-cjfzgesfp myocardial infarction. 2. Three-vessel coronary artery disease, patent internal mammary to the left anterior descending, pa tent stent to the obtuse marginal branch, distal vessel with low flow through a side branch. No inte rvention indicated, and that is probably the source of his lvh-CB-bmnqntxwz infarction. 4. 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 5. Ejection fraction 40%. PLAN: 1. MYAH inhibitors. 2. Lisinopril 5 mg a day. 3. Carvedilol 3.125 mg twice a day. 4. Atorvastatin 80 mg a day. 5. Aspirin 81 mg a day. 6. Plavix 75 mg a day. 7. Nitroglycerin if needed. 8. I have asked him to see me in 2-3 weeks. 9. If the patient continues to have chest pain, we would recommend an intervention on the right elio nary artery. I discussed this may result in obstruction in the posterior descending artery. We will certainly have to stent across this. Also, the ultrasound was very helpful in obtaining arterial access. He has calcified femoral artery, but there is a soft area just above the calcified area that was identified on ultrasound and that is where the sheath was placed. We would like to treat the patient medically. In addition to this, he needs to quit smoking. Discussed that in great detail with the patient.
[2017-07-30 12:34] VITALS: TEMP 98.2
[2017-07-30 13:28] VITALS: BP 136/69
[2017-07-30] MEDS ORDERED: Carvedilol 3.125 MG TAB PO SCH (17:00)
[2017-07-31] MEDS ORDERED: Lisinopril 2.5 MG TAB PO SCH (09:00)
[2017-07-31] MEDS ORDERED: Lisinopril 5 MG TAB PO SCH (09:00)
== END 2017-07-30 14:01 | disposition home or self-care (01) | DRG 281 ==
LOC: ERS 07:02 → ERHOLD 08:54 → 2NO 13:59
PROVIDERS: ADMIT Internal Medicine; ATTEND Internal Medicine
PROC: 4A023N7 Measurement of Cardiac Sampling and Pressure, Left Heart, Percutaneous Approach (ICD-10-PCS; principal; 2017-07-29)
PROC: B2131ZZ Fluoroscopy of Multiple Coronary Artery Bypass Grafts using Low Osmolar Contrast (ICD-10-PCS; 2017-07-29)
PROC: B2111ZZ Fluoroscopy of Multiple Coronary Arteries using Low Osmolar Contrast (ICD-10-PCS; 2017-07-29)
PROC: B2181ZZ Fluoroscopy of Left Internal Mammary Bypass Graft using Low Osmolar Contrast (ICD-10-PCS; 2017-07-29)
DX: I21.4 Non-ST elevation (NSTEMI) myocardial infarction (principal); E87.1 Hypo-osmolality and hyponatremia; E87.8 Other disorders of electrolyte and fluid balance, not elsewhere classified; M62.82 Rhabdomyolysis; I11.9 Hypertensive heart disease without heart failure; I25.10 Atherosclerotic heart disease of native coronary artery without angina pectoris; F17.210 Nicotine dependence, cigarettes, uncomplicated; Z79.02 Long term (current) use of antithrombotics/antiplatelets; Z79.82 Long term (current) use of aspirin; E78.5 Hyperlipidemia, unspecified; Z91.14 Patient's other noncompliance with medication regimen; Z95.1 Presence of aortocoronary bypass graft; Z95.5 Presence of coronary angioplasty implant and graft; Z91.041 Radiographic dye allergy status
CPT/HCPCS: 36415; 36416; 71045; 76942; 80053; 80061; 81001; 82550; 82553; 83690; 83880; 83930; 83935; 84300; 84443; 84484; 85025; 93005; 93306; 93459; 93798; 96372; 96374; 99152; 99153; A4216; C1769; J1200; J1644; J1650; J2001; J2250; J3010; J7506

== ENCOUNTER 2018-12-10 01:14 | Inpatient (IN) | payer BC ==
[2018-12-10 01:44] LABS: #Basophils 0.1 thou/uL (0.0-0.2); #Eosinphils 0.1 thou/uL (0.0-0.7); #Lymphocytes 1.5 thou/uL (1.20-3.40); #Monocytes 0.7 thou/uL (0.11-0.59); #Neutrophils 3.8 thou/uL (1.40-6.50); %Basophils 1.9 % (0.0-1.0); %Eosinophils 1.9 % (0.0-10.0); %Lymphocytes 24.1 % (21.0-51.0); %Monocytes 11.4 % (0.0-10.0); %Neutrophils 60.7 % (42.0-75.0); Hemoglobin 16.2 g/dL (14.0-18.0); Mean Corpuscular HGB CONC 34.5 g/dL (32.0-36.0); Mean Corpuscular Hemoglobin 33.6 pg (27.0-31.0); Mean Corpuscular Volume 97.3 fL (78.0-98.0); Mean Platelet Volume 7.5 fL (7.4-10.4); Platelet Count 199 thou/uL (130-400); RBC Distribution Width 12.4 % (11.5-14.5); Red Blood Cell (RBC) Count 4.83 mill/uL (4.70-6.10); White Blood Cell (WBC) Count 6.2 thou/uL (4.8-10.8)
[2018-12-10 02:04] LABS: ALT (SGPT) 12 U/L (8-55); AST (SGOT) 22 U/L (5-34); Albumin 4.6 g/dL (3.4-4.8); Alkaline Phosphatase 74 U/L (40-150); Anion Gap 13 mmol/L (10-20); BUN (Urea Nitrogen) 7 mg/dL (8.4-25.7); Bilirubin, Total 0.4 mg/dL (0.2-1.2); CK (CPK) 96 U/L (30-200); Calc. Creatinine Clearance 0 mL/min (70-130); Calcium 9.6 mg/dL (7.8-10.44); Carbon Dioxide 27 mmol/L (23-31); Chloride 98 mmol/L (98-107); Estimated GFR-MDRD 90; Globulin 2.2 g/dL (2.4-3.5); Glucose 98 mg/dL (80-115); Lipase 53 U/L (8-78); Potassium 5.1 mmol/L (3.5-5.1); Protein, Total 6.8 g/dL (5.8-8.1); Sodium 133 mmol/L (136-145)
[2018-12-10 02:24] LABS: CKMB 5.2 ng/mL (0-6.6)
[2018-12-10] MEDS ORDERED: Enoxaparin Sodium 30 MG/0.3 ML SYRINGE ONE (02:27)
[2018-12-10] MEDS ORDERED: Enoxaparin Sodium 40 MG/0.4 ML SYRINGE ONE (02:27)
[2018-12-10] MEDS ORDERED: Aspirin Chewable 81 MG TAB ONE (02:28)
[2018-12-10] MEDS ORDERED: Morphine 4 MG/ML VIAL ONE ×3 (02:28→09:06)
[2018-12-10 05:35] LABS: Troponin I 0.987 ng/mL (< 0.028)
--- NOTE | 2018-12-10 07:43 | RAD ---
XR Chest 1 View Portable HISTORY: Chest pain COMPARISON: 07/28/2017 FINDINGS: The heart size is normal. Changes of median sternotomy are again seen. The aorta is tortuou s. The lungs are well expanded without focal areas of consolidation, pneumothorax or pleural effusions. IMPRESSION: No radiographic evidence of acute cardiopulmonary process.
[2018-12-10 08:15] LABS: Troponin I 4.525 ng/mL (< 0.028)
[2018-12-10] MEDS ORDERED: Enoxaparin Sodium 80 MG/0.8 ML SYRINGE ONE (09:24)
[2018-12-10] MEDS ORDERED: Enoxaparin Sodium 80 MG/0.8 ML SYRINGE SC SCH (10:45)
[2018-12-10] MEDS ORDERED: Acetaminophen 325 MG TAB PO PRN (12:59)
[2018-12-10] MEDS ORDERED: Guaifenesin DM 100-10/5 ML UDCUP PO PRN (12:59)
[2018-12-10] MEDS ORDERED: Senokot S 8.6-50 MG TAB PO PRN (12:59)
[2018-12-10] MEDS ORDERED: Zolpidem Tartrate 5 MG TAB PO PRN (12:59)
[2018-12-10] MEDS ORDERED: Ondansetron PF 4 MG/2 ML Vial ONE (13:46)
[2018-12-10] MEDS: Ondansetron PF 4 MG/2 ML Vial IVP PRN ×2 (13:57→21:00)
--- NOTE | 2018-12-10 15:24 | PDOC.EVN ---
Event Note - Event Note Event Note: H&P #[id number]
--- NOTE | 2018-12-10 16:39 | HP ---
ADMITTING DIAGNOSIS: Chest pain. HISTORY OF PRESENT ILLNESS: This is a 63-year-old male, presented to the hospital, complaining of chest pain. The patient states he felt like this last time about 10 years ago in 2009 when he had a CABG done in the past. He has had a CABG x3 as well as 7 stents placed in 2009. The patient has not been able to follow up with a hydro plant technician since then after that point in time. The patient states that the pain that he is feeling feels exactly the same as prior when he had his CABG and 7 stents. The patient otherwise denies any diarrhea, constipation, fevers, chills, or shortness of breath. Does admit to some nausea and vomiting that occurs when he takes food ingestion and also admits to some chest pain as well as mild shortness of breath. The patient states that he has dyspnea on ambulation. The patient is seen and examined in the ER. No family at bedside. All questions answered. PAST MEDICAL HISTORY: Hyperlipidemia, hypertension, coronary artery disease status post cardiac bypass. SOCIAL HISTORY: Drinks about 2 to 3 drinks a day. Smokes about 1 pack a day and continues to smoke for more than 30 years, actively smoking now Past medical history positive as mentioned above. FAMILY HISTORY: Positive for heart disease as well as diabetes. REVIEW OF SYSTEMS: All systems reviewed. Pertinent positive in HPI, otherwise negative. HOME MEDICATIONS: See MAR. PHYSICAL EXAMINATION: VITAL SIGNS: Blood pressure 161/110, pulse of 84, temperature of 98.2, O2 saturations 100% on room air, respiratory rate of 16. GENERAL: The patient is lying in bed, in no acute discomfort. HEENT: Pupils are equal, round, and reactive to light and accommodation. Extraocular muscles are intact. Oral cavity, moist and pink. NECK: Supple with mobile and nontender thyroid appreciated. CARDIOVASCULAR: Regular rate and rhythm. S1 and S2. No murmurs, rubs, or gallops. PULMONARY: Clear to auscultation bilaterally. No rales, rhonchi, or wheezing appreciated. ABDOMEN: Positive bowel sounds. Soft, nontender, nondistended. EXTREMITIES: 2+ peripheral pulses noted. No cyanosis, clubbing, or edema noted. NEUROLOGIC: Cranial nerves 2 through 12 are intact. No loss of motor or sensory function. LABORATORY DATA: Reviewed. IMAGES: Reviewed. ASSESSMENT: 1. Ahb-YS-omldyrx elevation myocardial infarction. 2. Chest pain. 3. Hyperlipidemia. 4. Hypertension. 5. Cardiomyopathy. PLAN: At this point in time, we will admit the patient to Internal Medicine Team. We will also consult Cardiology. Start the patient on NSTEMI protocol medications with anticoagulation, anti-platelet, statin. We will await Cardiology evaluation for possible cardiac cath if needed. We will continue home medications once reconciliation is done. Case and plan discussed with the patient at length. He understood and agreed with this plan. Job ID: [id number] BRIAN
[2018-12-10] MEDS ORDERED: Clopidogrel Bisulfate 300 MG TAB PO SCH (17:30)
[2018-12-10] MEDS ORDERED: Lisinopril 5 MG TAB PO SCH (18:45)
[2018-12-10] MEDS: Atorvastatin Calcium 40 MG TAB PO SCH (21:00)
[2018-12-10] MEDS ORDERED: Metoprolol Tartrate 25 MG TAB PO SCH (21:00)
[2018-12-10] MEDS ORDERED: Atorvastatin Calcium 40 MG TAB PO SCH (21:00)
[2018-12-10] MEDS: Enoxaparin Sodium 80 MG/0.8 ML SYRINGE SC SCH (21:02)
--- NOTE | 2018-12-11 00:02 | CON ---
DATE OF CONSULTATION: 12/10/2018 REASON FOR ADMISSION: Non-ST elevation myocardial infarction. HISTORY OF PRESENT ILLNESS: Les Gillespie is a 63-year-old gentleman, previous patient of Dr. Jenkins. He has had multiple stents implanted and previous bypass surgery. He presented here in July 2017 with chest pain and a non-ST elevation myocardial infarction with troponin level of 20. The patient went to the cardiac catheterization lab, was found to have severe LAD disease with a patent internal mammary artery, a small circumflex distribution with a patent stent and a right coronary with multiple stents implanted which were patent with a very complicated bifurcation lesion in the distal right coronary artery before and after the origin of the posterior descending artery. It was thought that the stenting this area would certainly involve a major risk of occluding the posterior descending artery. The patient was advised to quit smoking and was given Plavix, high-dose statin, aspirin, also I believe lisinopril and other medicines for angina. The patient states that he did not follow up with Dr. Jenkins or anyone else following that. He stopped taking all the medicines as soon as he ran out and has been off the medicines for about a year and 4 months. So approximately, he has done well up until recently, he has had yesterday the onset of severe pain and came here to the emergency room, did have ST depression in the inferior leads. He is pain-free now. The patient has continued to smoke. MEDICATIONS: Multiple were prescribed. He did not take any of these, only aspirin. SOCIAL HISTORY: He continues to smoke. REVIEW OF SYSTEMS: CONSTITUTIONAL: No significant weight gain or loss. VISION: No changes. HEARING: No changes. PULMONARY: No cough or wheezing. GASTROINTESTINAL: No nausea, vomiting, or diarrhea. SKIN: No rashes. PHYSICAL EXAMINATION: GENERAL: This is a thin 63-year-old man, in no distress. VITAL SIGNS: Blood pressure is 162/86, pulse 75, regular. LUNGS: Clear. CARDIAC: Normal S1, normal S2. ABDOMEN: Soft, nontender. EXTREMITIES: There is no edema. LABORATORY DATA: EKG as outlined above. Peak troponin 4.5. ASSESSMENT: 1. Previous bypass surgery with a patent internal mammary to the LAD, is the only graft patent. 2. Stent patent in the circumflex distribution. His right coronary with a complicated bifurcation disease as outlined above. 3. Noncompliance, continued to smoke. Did not take medicines as prescribed. He did not go anywhere for followup. PLAN: 1. Resume Lovenox. 2. Resume high-dose statin. 3. Resume beta blockers and MYAH inhibitors. 4. Discussed with patient that we could likely proceed to percutaneous therapy, but there would be a significant risk of occluding the posterior descending artery. In addition, the patient has been noncompliant with medication, therefore, it would be problematic even if we did stent the right coronary if he stops all his medications and for now, we will try to treat medically and if he has refractory angina, stenting could be done, but he does have some serious issues associated with noncompliance. Dr. Verma to see this weekend. He is also allergic to iodine. If the decision is made to proceed, will need to be pretreated with steroids. Job ID: [id number]
[2018-12-11 05:16] LABS: #Basophils 0.1 thou/uL (0.0-0.2); #Lymphocytes 1.1 thou/uL (1.20-3.40); #Monocytes 1.4 thou/uL (0.11-0.59); #Neutrophils 7.2 thou/uL (1.40-6.50); %Basophils 0.6 % (0.0-1.0); %Eosinophils 0.5 % (0.0-10.0); %Monocytes 13.9 % (0.0-10.0); %Neutrophils 73.9 % (42.0-75.0); Hemoglobin 17.1 g/dL (14.0-18.0); Mean Corpuscular HGB CONC 34.1 g/dL (32.0-36.0); Mean Corpuscular Hemoglobin 32.9 pg (27.0-31.0); Mean Corpuscular Volume 96.6 fL (78.0-98.0); Platelet Count 188 thou/uL (130-400); RBC Distribution Width 12.4 % (11.5-14.5); Red Blood Cell (RBC) Count 5.21 mill/uL (4.70-6.10); White Blood Cell (WBC) Count 9.7 thou/uL (4.8-10.8)
[2018-12-11 05:39] LABS: Anion Gap 16 mmol/L (10-20); BUN (Urea Nitrogen) 12 mg/dL (8.4-25.7); Calc. Creatinine Clearance 59 mL/min (70-130); Calcium 8.9 mg/dL (7.8-10.44); Carbon Dioxide 26 mmol/L (23-31); Chloride 94 mmol/L (98-107); Estimated GFR-MDRD 60; Glucose 93 mg/dL (80-115); Potassium 4.3 mmol/L (3.5-5.1); Sodium 132 mmol/L (136-145)
--- NOTE | 2018-12-11 08:15 | PDOC.CTH ---
Cardiology Progress Note - Subjective Hypotension this AM Dizziness noted Code green> IVF and increase BP. No CP. Transfer to ICU for closer ovbs - Objective Vital Signs Temp Pulse Resp BP BP Pulse Ox 12/11/18 07:51 93/57 L 12/11/18 07:38 98.5 F 68 18 81/49 L 95 12/11/18 03:15 99 F 62 18 103/56 L 92 L Weight 147 lb 3.2 oz 12/10/18 12/11/18 12/12/18 06:59 06:59 06:59 Intake Total 1100 Output Total 150 Balance 950 - Physical Examination General/Neuro: alert & oriented x3, NAD Neck: no JVD present Lungs: CTA, unlabored respirations Heart: PMI normal, RRR Abdomen: NT/ND, soft Extremities: + femoral B - Labs Result Diagrams: 12/11/18 04:51 12/11/18 04:51 Troponin/CKMB CK-MB (CK-2) 5.2 ng/mL (0-6.6) 12/10/18 01:29 Troponin I 4.525 ng/mL (< 0.028) H* 12/10/18 07:33 - Assessment/Plan Hypotension CAD s/p CABG Svere RCA disease non-complinace Difficult situation Discussed with dr. Casey yesterday High risk for jailing PDA with stent tot he RPL Also concern for compliance with meds Plan was to treat medically over one month and madonna pt was able to take meds If so, consider revsascularization Stop BB moniotr trop, CKMB Trop was increasing yesterday so will be difficult to patient safety sitter and changes (peak?) Moniotr via CKMB Iodine allergy
[2018-12-11 08:16] LABS: Actual Bicarbonate (HCO3a) 19.5 mEq/L (22-28); Base Excess (BEa) -3.2 mEq/L (-2.0 to +3.0); CO2 Tension 29.8 mmHg (35.0-45.0); Calcium, Ionized 1.11 mmol/L (1.12-1.30); Carboxyhemoglobin (COHb) 1.8 gm% (0.0-3.0); Hemoglobin (Hb) 16.9 g/dL (14.0-18.0); O2 Tension (PaO2) 68.6 mmHg (> 80.0); Potassium - ABG Lab 4.12 mmol/L (3.70-5.30); pH, Arterial 7.43 (7.35-7.45)
[2018-12-11 08:17] LABS: Puncture Site L.R.
--- NOTE | 2018-12-11 08:39 | PDOC.HOSPP ---
- Subjective Encounter Date: 12/11/18 Encounter Time: 08:38 Subjective: Patient seen and examined, stated that this AM he felt cold, BP dropped to the 70s-80s, was given 1L NS bolus and now SBP is in upper 90s with MAP > 70, states he does not have any chest pain currently but did have some last night. Patient otherwise has no other issues, no family at bedside, all questions answered. - Objective Vital Signs & Weight: Vital Signs (12 hours) Temp Pulse Resp BP BP Pulse Ox 12/11/18 07:51 93/57 L 12/11/18 07:38 98.5 F 68 18 81/49 L 95 12/11/18 03:15 99 F 62 18 103/56 L 92 L Weight Weight 147 lb 3.2 oz I&O: 12/10/18 12/11/18 12/12/18 06:59 06:59 06:59 Intake Total 1100 Output Total 150 Balance 950 Result Diagrams: 12/11/18 04:51 12/11/18 04:51 ROS - Medication Medications: Active Medications Generic Name Dose Route Start Last Admin Trade Name Freq PRN Reason Stop Dose Admin Acetaminophen 650 mg 12/10/18 12:59 12/10/18 21:00 Tylenol PO 650 mg Q4H PRN Administration Headache/Fever/Mild Pain (1-3) Atorvastatin Calcium 80 mg 12/10/18 21:00 12/10/18 21:00 Lipitor PO 80 mg HS COREY Administration Enoxaparin Sodium 70 mg 12/10/18 21:00 12/10/18 21:02 Lovenox SC 70 mg 0900,2100 COREY Administration Metoprolol Tartrate 25 mg 12/10/18 21:00 12/10/18 21:02 Lopressor PO 25 mg BID COREY Administration Ondansetron HCl 4 mg 12/10/18 12:59 12/10/18 21:00 Zofran IVP 4 mg Q6H PRN Administration Nausea/Vomiting - Exam NAD, awake alert Eye: PERRL, anicteric sclera ENT: normocephalic atraumatic, no oropharyngeal lesions Neck: supple, symmetric, no JVD Heart: RRR, no murmur, no gallops, no rubs Respiratory: CTAB, no wheezes, no rales, no ronchi Gastrointestinal: soft, non-tender, non-distended Extremities: no cyanosis, no clubbing, no edema Skin: normal turgor, no lesions Neurological: CN's grossly intact Hosp A/P (1) Combined systolic and diastolic cardiac dysfunction Code(s): I51.89 - OTHER ILL-DEFINED HEART DISEASES Status: Acute (2) NSTEMI (non-ST elevated myocardial infarction) Code(s): I21.4 - NON-ST ELEVATION (NSTEMI) MYOCARDIAL INFARCTION Status: Acute (3) CAD (coronary artery disease) Code(s): I25.10 - ATHSCL HEART DISEASE OF [place] CORONARY ARTERY W/O ANG PCTRS Status: Chronic (4) Dyslipidemia Code(s): E78.5 - HYPERLIPIDEMIA, UNSPECIFIED Status: Chronic (5) Hypertension Code(s): I10 - ESSENTIAL (PRIMARY) HYPERTENSION Status: Chronic (6) Tobacco abuse Code(s): Z72.0 - TOBACCO USE Status: Chronic - Plan - transfer to ICU - stat CXR and ABG - will also give 100cc/hr NS x 1 more L - check echo - I will hold off on any further IVF infusion as the patient does have a hx of heart failure and I'm not sure what his cardiac function us, BP has responded nicely to the initial L bolus infusion, will do 1 more L at 100cc/hr for now - on medications for NSTEMI - cardiology notified - patient is VERY HIGH RISK for heart disease, his last evalution by a asbestos removal worker was in 2009 when he had 7 stents and CABG done, hasn't followed up with any physician since then and has continued to smoke heavily - states he would like to be a full code - consult to pulmonary critical care, pt stable so can do a routine consult no need for emergent evaluation - vitals stable - case and plan d/w patient at length, he understood and agreed with this plan.
[2018-12-11] MEDS ORDERED: Enoxaparin Sodium 80 MG/0.8 ML SYRINGE SC SCH (09:00)
[2018-12-11] MEDS ORDERED: Lisinopril 5 MG TAB PO SCH (09:00)
--- NOTE | 2018-12-11 09:16 | RAD ---
CHEST 1 VIEW: HISTORY: Code Green. COMPARISON: 12/10/2018. FINDINGS: Atherosclerosis of the aortic knob. Normal cardiac silhouette. The pulmonary vessels and hilum are normal. Costophrenic angles are clear. Hyperinflation with chronic changes. No masses or consolida tion. No pneumothorax. Sternotomy wires are noted. IMPRESSION: Atherosclerosis. No acute cardiopulmonary process. POS: [facility]
[2018-12-11 09:48] LABS: CKMB 72.9 ng/mL (0-6.6)
[2018-12-11] MEDS ORDERED: Hydrocortisone Sod Succ/PF 100 mg/2 ml Vial ONE (10:04)
[2018-12-11] MEDS ORDERED: Albumin 5% 250 ML ONE (10:04)
--- NOTE | 2018-12-11 10:27 | CON ---
DATE OF CONSULTATION: HISTORY OF PRESENT ILLNESS: Les Gillespie is a 63-year-old gentleman, who has known history of coronary artery disease, previous CABG followed by 7 stents in 2010, done at the [facility]. He says the certification technician over there pissed him off, and he has refused to take any medications since then. He is still smoking a pack a day. He presented with chest pain, left anterior without any nausea or vomiting. Troponin was elevated. Cardiology has seen the patient. He was transferred to the ICU because he was hypotensive. He denies any coughing or wheezing. PAST MEDICAL HISTORY: Coronary artery disease, tobacco abuse, and previous pneumonia. PAST SURGICAL HISTORY: Previous surgeries: Bypass and multiple stents. SOCIAL HISTORY: Tobacco; as noted, a pack a day. Apparently, he works at [employer]. ALLERGIES: IODINE. HOME MEDICATIONS: None. REVIEW OF SYSTEMS: Otherwise, 10-point negative. PHYSICAL EXAMINATION: VITAL SIGNS: Temperature 98, pulse 60, respiratory rate 18, blood pressure 83/48. CHEST: Bilateral rhonchi. CARDIAC: Normal S1 and S2. No gallops. ABDOMEN: No masses. LABORATORY DATA: White count 9000. PO2 is 68, pCO2 is 29, pH is 7.43 on 3 L. Sodium 132, creatinine 1.23. Troponin is elevated, may be slightly dehydrated. IMPRESSION: Status post hypotension, probably volume depleted; coronary artery disease, previous coronary artery bypass grafting and multiple stents; noncompliance; and tobacco abuse. PLAN: Fluid challenge has been initiated. Continue present treatment if he used to take any neb treatments. Pulmonary will follow in the ICU. He is strongly encouraged to refrain from smoking. TIME SPENT: Consultation note of 70 minutes, 50% in direct patient care. Job ID: [id number]
[2018-12-11] MEDS: Aspirin 81 mg Enteric Coated Tablet PO SCH (10:52)
[2018-12-11] MEDS: Sodium Chloride 0.9% 1,000 ML IV SCH (10:52)
[2018-12-11] MEDS: Enoxaparin Sodium 80 MG/0.8 ML SYRINGE SC SCH ×2 (10:52→20:01)
[2018-12-11] MEDS: Clopidogrel Bisulfate 75 MG TAB PO SCH (10:52)
--- NOTE | 2018-12-11 11:44 | PRG ---
DATE OF SERVICE: SUBJECTIVE: Mr. Gillespie, this morning had an episode of hypotension. He was fairly asymptomatic. No chest pain or pressure noted. He did have an episode of chest pain 2 days ago at 11:00 p.m. He has not had further chest pain since Thursday morning. His initial troponin was negative and increased to 4. A followup troponin was not drawn. He was transferred to the ICU where he continues to have intermittent episodes of hypotension. He again is currently chest pain-free. OBJECTIVE: GENERAL: Patient is a pleasant male, who is in no acute distress. The patient appears their stated age. VITAL SIGNS: Current blood pressure 98/51, pulse 70, respirations 20. NEUROLOGIC: The patient is alert and oriented x3 with no focal neurologic deficits. HEENT: Sclerae without icterus. Mouth has moist mucous membranes with normal pallor. NECK: No JVD. Carotid upstroke brisk. No bruits bilaterally. LUNGS: Clear to auscultation with unlabored respirations. BACK: No scoliosis or kyphosis. CARDIAC: Regular rate and rhythm with normal S1 and S2. No S3 or S4 noted. No significant rubs, murmurs, thrills, or gallops noted throughout the precordium. PMI is not displaced. There is no parasternal heave. ABDOMEN: Soft, nontender, nondistended. No peritoneal signs present. No hepatosplenomegaly. No abnormal striae. EXTREMITIES: 2+ femoral and 2+ dorsalis pedis pulses. No cyanosis, clubbing, or edema. SKIN: No gross abnormalities. PERTINENT LABORATORY DATA: Hemoglobin 17.1. CK-MB of 72 with a troponin of 96. EKG shows normal sinus rhythm with ST-T wave changes that are unchanged from EKG on Thursday. IMPRESSION: 1. Non-Q wave myocardial infarction. 2. Coronary artery disease. 3. Noncompliance. 4. Status post stent placement. 5. Status post bypass surgery. 6. Iodine allergy. RECOMMENDATIONS: Certainly a very complex situation for Mr. Gillespie. I reviewed his angiogram once again. He has a large right coronary artery with a bifurcation lesion. He also has multiple stents placed in addition to completely occluded LAD with SHARAM to the LAD and patent high OM branch. Discussed proceeding with coronary angiography with Mr. Gillespie. Mr. Gillespie has some reluctance. Dr. Casey did state that with angio, we could compromise along the blood vessels at the bifurcation, which I reaffirmed. At this point, we will continue to give IV fluids. This may be residual from RV infarction that occurred yesterday. His main symptoms in the past have been chest pain. EKG does not show ST-segment elevation. I would recommend a stat echo to assess LVEF. We will also recommend a repeat CK-MB and troponin to see if it is up or downtrending. Job ID: [id number]
--- NOTE | 2018-12-11 11:52 | EKG ---
Test Reason : Blood Pressure : / mmHG Vent. Rate : 090 BPM Atrial Rate : 090 BPM P-R Int : 146 ms QRS Dur : 104 ms QT Int : 376 ms P-R-T Axes : 080 073 -81 degrees QTc Int : 459 ms Sinus rhythm with occasional Premature ventricular complexes Possible Left atrial enlargement Left ventricular hypertrophy with repolarization abnormality Cannot rule out Septal infarct , age undetermined Abnormal ECG Confirmed by CATARINA DURHAM M.D. ([id number]), publication editor SANTI MEHTA ([id number]) on 12/11/2018 11:51:58 AM Referred By: Confirmed By:CATARINA DURHAM M.D.
[2018-12-11 13:04] LABS: CKMB 53.6 ng/mL (0-6.6)
[2018-12-11] MEDS: Atorvastatin Calcium 40 MG TAB PO SCH (20:02)
[2018-12-12] MEDS: Sodium Chloride 0.9% 1,000 ML IV SCH ×4 (01:11→20:34)
[2018-12-12] MEDS: Clopidogrel Bisulfate 75 MG TAB PO SCH (07:15)
[2018-12-12] MEDS: Enoxaparin Sodium 80 MG/0.8 ML SYRINGE SC SCH ×2 (07:15→20:34)
[2018-12-12] MEDS: Aspirin 81 mg Enteric Coated Tablet PO SCH (07:15)
--- NOTE | 2018-12-12 08:35 | PDOC.CTH ---
Cardiology Progress Note - Objective Vital Signs Temp Pulse Ox 12/12/18 07:06 98 12/12/18 04:00 98.2 F 12/12/18 00:00 98.7 F 99 Admit Weight 148 lb 5.938 oz Weight 147 lb 3.2 oz 12/11/18 12/12/18 12/13/18 06:59 06:59 06:59 Intake Total 1100 4886 0 Output Total 150 2100 0 Balance 950 2786 0 - Physical Examination General/Neuro: alert & oriented x3, NAD Neck: carotid US brisk, no JVD present Lungs: unlabored respirations Heart: RRR Abdomen: NT/ND, soft Extremities: + femoral B - Labs Result Diagrams: 12/11/18 04:51 12/11/18 04:51 Troponin/CKMB CK-MB (CK-2) 53.6 ng/mL (0-6.6) H* 12/11/18 10:55 Troponin I 65.919 ng/mL (< 0.028) H* 12/11/18 10:56 - Assessment/Plan Hypotension CAD s/p CABG Svere RCA disease non-complinace Decreased BP likely seocndary to volume contraction Pt no symptoms Vikash completed infarction on Thursday CKMB and troponin tredning downward yesterday AM Pt with out CP yesterday Treat medically for now Difficult situation Discussed with dr. Casey yesterday High risk for jailing PDA with stent tot he RPL Also concern for compliance with meds Plan was to treat medically over one month and madonna pt was able to take meds If so, consider revsascularization Stop BB monitor trop, CKMB Trop was increasing yesterday so will be difficult to travel counselor and changes (peak?) Monitor via CKMB Iodine allergy
[2018-12-12 08:56] LABS: Anion Gap 12 mmol/L (10-20); BUN (Urea Nitrogen) 12 mg/dL (8.4-25.7); Calc. Creatinine Clearance 100 mL/min (70-130); Calcium 8.2 mg/dL (7.8-10.44); Carbon Dioxide 25 mmol/L (23-31); Chloride 100 mmol/L (98-107); Estimated GFR-MDRD Greater than 90; Glucose 106 mg/dL (80-115); Potassium 3.9 mmol/L (3.5-5.1); Sodium 133 mmol/L (136-145)
--- NOTE | 2018-12-12 10:01 | PRG ---
DATE OF SERVICE: 12/12/2018 SUBJECTIVE: This morning, he is awake, alert, and responsive. No further chest pain. No shortness of breath. OBJECTIVE: VITAL SIGNS: Sats 98% on room air, blood pressure is improved 123/64, and respiratory rate 18. CHEST: No wheezing or crackle. CARDIAC: Normal S1 and S2. No gallop. ABDOMEN: No masses. IMPRESSION: 1. Coronary artery disease. 2. Tobacco abuse. 3. Hypertension. PLAN: Disposition as per Cardiology. He can probably be transferred out of the ICU. Continue PT supportive care. We will follow while in the ICU. He was told to refrain from smoking. Job ID: [id number]
--- NOTE | 2018-12-12 11:30 | PDOC.CTH ---
Cardiology Progress Note - Subjective Much better today after IVF Pt with little to no urine output over last 2 days. Poor PO intake prior to hospitalization - Objective Vital Signs Temp Pulse Ox 12/12/18 10:00 97.5 F L 12/12/18 07:06 98 12/12/18 04:00 98.2 F 12/12/18 00:00 98.7 F 99 Admit Weight 148 lb 5.938 oz Weight 147 lb 3.2 oz 12/11/18 12/12/18 12/13/18 06:59 06:59 06:59 Intake Total 1100 4886 0 Output Total 150 2100 600 Balance 950 2786 -600 - Physical Examination General/Neuro: alert & oriented x3, NAD Neck: no JVD present Lungs: unlabored respirations Heart: RRR Abdomen: NT/ND Extremities: + femoral B - Labs Result Diagrams: 12/11/18 04:51 12/12/18 08:28 Troponin/CKMB CK-MB (CK-2) 53.6 ng/mL (0-6.6) H* 12/11/18 10:55 Troponin I 65.919 ng/mL (< 0.028) H* 12/11/18 10:56 - Assessment/Plan NQWMI CAD s/p CABG Hypotension Decrease BP secondary to volume contraction and not RV infarct Pt responded to fluids CKMB and troponin yesterday a reflection of complete infarction. Last episode of CP was thursday AM Ok to floor
--- NOTE | 2018-12-12 13:15 | PDOC.HOSPP ---
- Subjective Encounter Date: 12/12/18 Encounter Time: 13:09 Subjective: Patient seen and examined, no new issues or complaints, all questions answered. - Objective Vital Signs & Weight: Vital Signs (12 hours) Temp Pulse Ox 12/12/18 10:00 97.5 F L 12/12/18 07:06 98 12/12/18 04:00 98.2 F Weight Admit Weight 148 lb 5.938 oz Weight 147 lb 3.2 oz Most Recent Monitor Data Heart Rate from ECG 69 NIBP 127/73 NIBP BP-Mean 91 Respiration from ECG 15 SpO2 100 I&O: 12/11/18 12/12/18 12/13/18 06:59 06:59 06:59 Intake Total 1100 4886 0 Output Total 150 2100 600 Balance 950 2786 -600 Result Diagrams: 12/11/18 04:51 12/12/18 08:28 ROS - Medication Medications: Active Medications Generic Name Dose Route Start Last Admin Trade Name Freq PRN Reason Stop Dose Admin Acetaminophen 650 mg 12/10/18 12:59 12/10/18 21:00 Tylenol PO 650 mg Q4H PRN Administration Headache/Fever/Mild Pain (1-3) Aspirin 81 mg 12/11/18 09:00 12/12/18 07:15 Ecotrin PO 81 mg DAILY COREY Administration Atorvastatin Calcium 80 mg 12/10/18 21:00 12/11/18 20:02 Lipitor PO 80 mg HS COREY Administration Clopidogrel Bisulfate 75 mg 12/11/18 09:00 12/12/18 07:15 Plavix PO 75 mg DAILY COREY Administration Enoxaparin Sodium 70 mg 12/10/18 21:00 12/12/18 07:15 Lovenox SC 70 mg 0900,2100 COREY Administration Sodium Chloride 1,000 mls @ 100 mls/hr 12/11/18 10:45 12/12/18 05:46 Normal Saline 0.9% IV Not Given .Q10H COREY Ondansetron HCl 4 mg 12/10/18 12:59 12/10/18 21:00 Zofran IVP 4 mg Q6H PRN Administration Nausea/Vomiting - Exam NAD, awake alert Eye: PERRL, anicteric sclera ENT: normocephalic atraumatic, no oropharyngeal lesions Neck: supple, symmetric, no JVD, no thyromegaly Heart: RRR, no murmur, no gallops, no rubs Respiratory: CTAB, no wheezes, no rales, no ronchi Gastrointestinal: soft, non-tender, non-distended, normal bowel sounds Extremities: no cyanosis, no clubbing Hosp A/P (1) Combined systolic and diastolic cardiac dysfunction Code(s): I51.89 - OTHER ILL-DEFINED HEART DISEASES Status: Acute (2) NSTEMI (non-ST elevated myocardial infarction) Code(s): I21.4 - NON-ST ELEVATION (NSTEMI) MYOCARDIAL INFARCTION Status: Acute (3) CAD (coronary artery disease) Code(s): I25.10 - ATHSCL HEART DISEASE OF [place] CORONARY ARTERY W/O ANG PCTRS Status: Chronic (4) Dyslipidemia Code(s): E78.5 - HYPERLIPIDEMIA, UNSPECIFIED Status: Chronic (5) Hypertension Code(s): I10 - ESSENTIAL (PRIMARY) HYPERTENSION Status: Chronic (6) Tobacco abuse Code(s): Z72.0 - TOBACCO USE Status: Chronic - Plan - BP improved - trops trending downwards, defer intervention options to cardio - cardio following - patient is very malcompliant - cont with current medical management - keep in ICU for 24 hours for now as he did have a very rapid decline yesterday so would prefer to keep a close eye for now, can move to tele in 24 hours - case and plan d/w patient at [facility], he understood and agreed with this plan
[2018-12-12] MEDS: Atorvastatin Calcium 40 MG TAB PO SCH (20:34)
[2018-12-13 05:07] LABS: #Basophils 0.1 thou/uL (0.0-0.2); #Eosinphils 0.1 thou/uL (0.0-0.7); #Monocytes 0.7 thou/uL (0.11-0.59); #Neutrophils 3.7 thou/uL (1.40-6.50); %Basophils 0.9 % (0.0-1.0); %Eosinophils 1.4 % (0.0-10.0); %Lymphocytes 17.8 % (21.0-51.0); %Neutrophils 67.9 % (42.0-75.0); Hemoglobin 13.9 g/dL (14.0-18.0); Mean Corpuscular HGB CONC 34.2 g/dL (32.0-36.0); Mean Corpuscular Hemoglobin 33.4 pg (27.0-31.0); Mean Corpuscular Volume 97.8 fL (78.0-98.0); Mean Platelet Volume 8.3 fL (7.4-10.4); Platelet Count 121 thou/uL (130-400); RBC Distribution Width 12.2 % (11.5-14.5); Red Blood Cell (RBC) Count 4.16 mill/uL (4.70-6.10); White Blood Cell (WBC) Count 5.4 thou/uL (4.8-10.8)
[2018-12-13 05:31] LABS: Critical Call Chem Troponin I RESULT DECREASING
[2018-12-13 05:49] LABS: CKMB 3.8 ng/mL (0-6.6)
[2018-12-13] MEDS: Sodium Chloride 0.9% 1,000 ML IV SCH ×2 (06:43→10:14)
[2018-12-13] MEDS: Clopidogrel Bisulfate 75 MG TAB PO SCH (09:15)
[2018-12-13] MEDS: Enoxaparin Sodium 80 MG/0.8 ML SYRINGE SC SCH ×2 (09:15→20:38)
[2018-12-13] MEDS: Aspirin 81 mg Enteric Coated Tablet PO SCH (09:15)
[2018-12-13] MEDS ORDERED: Communication Order-Pharmacy FS SCH (09:30)
--- NOTE | 2018-12-13 09:43 | PRG ---
DATE OF SERVICE: 12/13/2018 SUBJECTIVE: This morning, no pain. No shortness of breath. OBJECTIVE: VITAL SIGNS: Saturations are 96% on room air, respiratory rate 18, temperature 98, pulse 83, blood pressure 120/80. CHEST: No wheezing, crackles. CARDIAC: Normal S1, S2. No gallops. ABDOMEN: No masses. LABORATORY DATA: Troponin is elevated at 17. CBC unremarkable. IMPRESSION: Coronary artery disease, multiple stents, ongoing tobacco abuse. Pulmonary will follow at a distance. Await input from Cardiology. Job ID: [id number]
--- NOTE | 2018-12-13 10:07 | PRG ---
DATE OF SERVICE: 12/13/2018 SUBJECTIVE: Mr. Gillespie is back out on the telemetry area. OBJECTIVE: VITAL SIGNS: His blood pressure is now 150 systolic. He is not having chest pain or pressure. LUNGS: Clear. CARDIAC: Normal S1. Normal S2. ABDOMEN: Soft and nontender. EXTREMITIES: There is no edema. ASSESSMENT AND PLAN: Complicated situation as outlined extensively in the chart including Dr. Verma' note. The patient does have severe 3-vessel disease with multiple stents in place. He has occluded left anterior descending with a patent internal mammary. He has an obtuse marginal branch with a patent stent. The right coronary artery has a complicated bifurcation lesion at a large posterior descending artery with multiple proximal stents and also some aneurysmal dilatation proximally. The patient had episode of hypotension, and also, the troponin actually went up to 90 on this admission. The patient does not in my opinion have a very low risk option. If we treat him medically, if he has a critical lesion in his right coronary artery, he has high risk of having recurrent infarction. If we stent across the posterior descending artery, the posterior descending artery could be occluded and certainly will be jailed. The patient also has a history of noncompliance. Based on all the situation at the present time, I think it would be reasonable to proceed to cardiac catheterization. If he has a critical lesion in the right coronary artery, the best option is likely to go ahead and stent the right coronary artery with the understanding that we will correction the posterior descending artery and possibly occlude that vessel. The patient understands increased risk associated with either strategy including increased risk with stenting, but there is also high risk without further intervention or diagnostic testing with catheterization. He understands risk of stroke, heart attack, iodine allergy, loss of blood supply to the leg or kidney, stent thrombosis, stent restenosis, myocardial infarction, and . He wishes to proceed. We will again absolutely stress the patient to essentially take medicines as prescribed, which he did not do following the more recent infarction that he had in 2018. Job ID: [id number]
--- NOTE | 2018-12-13 10:31 | PDOC.HOSPP ---
- Subjective Encounter Date: 12/13/18 Encounter Time: 10:25 Subjective: f/u for NSTEMI currently medically managed. No CP or SOB. Plan for LHC and potential RCA stenting in 24h. - Objective Vital Signs & Weight: Vital Signs (12 hours) Temp Pulse Resp BP Pulse Ox 12/13/18 08:00 98.8 F 83 18 143/71 H 96 12/13/18 03:46 98.0 F 85 16 143/79 H 95 Weight Admit Weight 148 lb 5.938 oz Weight 146 lb 11.2 oz Most Recent Monitor Data Heart Rate from ECG 76 NIBP 123/67 NIBP BP-Mean 85 Respiration from ECG 18 SpO2 96 I&O: 12/12/18 12/13/18 12/14/18 06:59 06:59 06:59 Intake Total 4886 1600 Output Total 2100 2100 Balance 2786 -500 Result Diagrams: 12/13/18 04:34 12/12/18 08:28 Additional Labs: Laboratory Tests 12/10/18 12/10/18 12/10/18 01:29 04:51 07:33 Troponin I 0.234 H 0.987 H* 4.525 H* 12/11/18 12/11/18 12/13/18 07:50 10:56 04:34 Troponin I 96.296 H* 65.919 H* 17.897 H* Radiology Reviewed by me: Yes (Echo - EF 55%, diast dysfxn) EKG Reviewed by me: Yes (Tele - SR) ROS - Medication Medications: Active Medications Generic Name Dose Route Start Last Admin Trade Name Freq PRN Reason Stop Dose Admin Acetaminophen 650 mg 12/10/18 12:59 12/10/18 21:00 Tylenol PO 650 mg Q4H PRN Administration Headache/Fever/Mild Pain (1-3) Aspirin 81 mg 12/11/18 09:00 12/13/18 09:15 Ecotrin PO 81 mg DAILY COREY Administration Atorvastatin Calcium 80 mg 12/10/18 21:00 12/12/18 20:34 Lipitor PO 80 mg HS COREY Administration Clopidogrel Bisulfate 75 mg 12/11/18 09:00 12/13/18 09:15 Plavix PO 75 mg DAILY COREY Administration Enoxaparin Sodium 70 mg 12/10/18 21:00 12/13/18 09:15 Lovenox SC 12/13/18 22:00 70 mg 0900,2100 COREY Administration Sodium Chloride 1,000 mls @ 50 mls/hr 12/13/18 09:28 12/13/18 10:14 Normal Saline 0.9% IV 1,000 mls .Q20H COREY Administration Ondansetron HCl 4 mg 12/10/18 12:59 12/10/18 21:00 Zofran IVP 4 mg Q6H PRN Administration Nausea/Vomiting - Exam NAD, awake alert Eye: PERRL, anicteric sclera ENT: normocephalic atraumatic, no oropharyngeal lesions Neck: supple, symmetric, no JVD, no thyromegaly, no lymphadenopathy Heart: RRR, no murmur, no gallops, no rubs, normal peripheral pulses Respiratory: CTAB, no ronchi, normal chest expansion Respiratory - other findings: diminished in bases Extremities: no cyanosis, no clubbing, no edema Skin: normal turgor, no lesions, no rashes Neurological: CN's grossly intact, normal sensation to touch, no weakness Musculoskeletal: normal tone, normal strength, no muscle wasting Psychiatric: normal affect, normal behavior, A&O x 3 Hosp A/P (1) NSTEMI (non-ST elevated myocardial infarction) Code(s): I21.4 - NON-ST ELEVATION (NSTEMI) MYOCARDIAL INFARCTION Status: Acute Plan: Continue dual-antiplatelet therapy with ASA/Plavix, Lovenox, plan for LHC in 24h (2) CAD (coronary artery disease) Code(s): I25.10 - ATHSCL HEART DISEASE OF [place] CORONARY ARTERY W/O ANG PCTRS Status: Chronic Qualifiers: Associated angina: with unstable angina Plan: See above, continue Lipitor 80mg HS, IVF's (3) Hypertension Code(s): I10 - ESSENTIAL (PRIMARY) HYPERTENSION Status: Chronic Qualifiers: Hypertension type: essential hypertension Qualified Code(s): I10 - Essential (primary) hypertension Plan: Initially hypotensive with NSTEMI, trending upward, will need low-dose beta- huber for d/c (4) Noncompliance with medication regimen Code(s): Z91.14 - PATIENT'S OTHER NONCOMPLIANCE WITH MEDICATION REGIMEN Status : Chronic Plan: Continue to encourage compliance with medications and smoking cessation (5) Tobacco abuse Code(s): Z72.0 - TOBACCO USE Status: Chronic Plan: Tobacco cessation resources - Plan psychotherapist social worker, out of bed/ambulate, DVT proph w/SCDs Continue ASA/Plavix Continue Lipitor Plan for LHC in 24h Continue IVF's Tobacco cessation resources
--- NOTE | 2018-12-13 15:38 | PQF ---
VIVIANA ROSENBAUMKAREN DO [id number] CLINICAL DOCUMENTATION IMPROVEMENT CLARIFICATION FORM: ICD-10 Updated PLEASE DO AN ADDENDUM TO THE PROGRESS NOTE WITH ANY DOCUMENTATION UPDATES OR ADDITIONS AND CARRY THROUGH TO DC SUMMARY. THANK YOU. DATE: 12/13/18 ATTN:DR. Rafael CASTILLO Please exercise your independent, professional judgment in responding to the clarification form. Clinical indicators are provided on the bottom of this form for your review. Please check appropriate box(s): [ x ] Hyponatremia please specify etiology, if known _chronic,_suspected due to chronic alcohol use [ ] Hyponatremia due to SIADH (Syndrome of Inappropriate Secretion of Antidiuretic Hormone) [ ] Other diagnosis [ ] Unable to determine In addition, please specify: Present on Admission (POA): [ x ] Yes [ ] No [ ] Unable to determine CLINICAL INDICATORS - SIGNS / SYMPTOMS / LABS 12/10 SODIUM 133 12/11 SODIUM 132 12/12 SODIUM 133 RISK: DX ACUTE DIASTOLIC/ SYSTOLIC CHF (PN /PATANKAR) 12/11 TREATMENTS: NS IV FLUIDS (12/11-PRESENT) SERIAL LABS (12/10-12/12) THANK YOU! ROLY (This form is maintained as a part of the permanent medical record) 2014 [employer] All Rights Reserved CRISTIANO [email or web address] [phone] MTDD
[2018-12-13] MEDS: Famotidine 20 MG TAB PO SCH (17:13)
[2018-12-13] MEDS: predniSONE 20 MG TAB PO SCH (17:13)
[2018-12-13] MEDS: Atorvastatin Calcium 40 MG TAB PO SCH (20:37)
[2018-12-14] MEDS: Famotidine 20 MG TAB PO SCH ×2 (00:32→05:27)
[2018-12-14] MEDS: predniSONE 20 MG TAB PO SCH ×2 (00:32→05:27)
[2018-12-14] MEDS: Sodium Chloride 0.9% 1,000 ML IV SCH (00:35)
[2018-12-14] MEDS: Aspirin 81 mg Enteric Coated Tablet PO SCH (05:27)
[2018-12-14] MEDS: Clopidogrel Bisulfate 75 MG TAB PO SCH (05:27)
[2018-12-14] MEDS ORDERED: Diazepam 5 MG TAB PO SCH (06:00)
[2018-12-14] MEDS ORDERED: Lidocaine 1% (PF) 30 ML VIAL ONE (08:52)
--- NOTE | 2018-12-14 09:26 | PRG ---
DATE OF SERVICE: 12/14/2018 SUBJECTIVE: This morning, he is going for a cardiac cath. OBJECTIVE: VITAL SIGNS: Temperature 98, pulse 77, respirations 18, saturations __96% on room air, blood pressure is 157/89. GENERAL: Denies any pain or discomfort or shortness of breath. CHEST: No wheezing. CARDIAC: Normal S1 and S2. No gallops. ABDOMEN: No masses. IMPRESSION: Ongoing tobacco use, coronary artery disease. PLAN: Pulmonary will follow for his CABG. Assist with ICU care. Job ID: [id number] MTDD
[2018-12-14] MEDS ORDERED: Midazolam HCl 2 mg/2 ml Vial ONE (09:55)
[2018-12-14] MEDS ORDERED: Fentanyl 100 MCG/2 ML VIAL ONE (09:56)
[2018-12-14] MEDS ORDERED: Iopamidol 370 76% 100 ML VIAL ONE (10:03)
[2018-12-14] MEDS ORDERED: Nitroglycerin 100MG/250ML BOT 250 ML ONE (10:23)
[2018-12-14] MEDS ORDERED: Acetaminophen/Codeine 30-300mg Tablet PO PRN ×2 (11:05)
[2018-12-14] MEDS ORDERED: Nitroglycerin 0.4 MG TAB (25 Tab Bottle) SL PRN (11:05)
[2018-12-14] MEDS ORDERED: Sodium Chloride 0.9% 200 ML IV PRN (11:05)
--- NOTE | 2018-12-14 11:42 | PDOC.HOSPP ---
- Subjective Encounter Date: 12/14/18 Encounter Time: 11:40 Subjective: f/u s/p NSTEMI medically managed initially now with [facility] showing 3v CAD with recommendations for repeat CABG. - Objective Vital Signs & Weight: Vital Signs (12 hours) Temp Pulse Resp BP BP Pulse Ox 12/14/18 07:40 98.5 F 77 18 157/89 H 98 12/14/18 03:40 97.8 F 83 14 166/92 H 99 Weight Admit Weight 148 lb 5.938 oz Weight 154 lb 9.6 oz Most Recent Monitor Data Heart Rate from ECG 76 NIBP 123/67 NIBP BP-Mean 85 Respiration from ECG 18 SpO2 96 I&O: 12/13/18 12/14/18 12/15/18 06:59 06:59 06:59 Intake Total 1600 3320 Output Total 2100 4864 Balance -500 1544 Result Diagrams: 12/13/18 04:34 12/12/18 08:28 Additional Labs: Laboratory Tests 12/10/18 12/10/18 12/10/18 01:29 04:51 07:33 Troponin I 0.234 H 0.987 H* 4.525 H* 12/11/18 12/11/18 12/13/18 07:50 10:56 04:34 Troponin I 96.296 H* 65.919 H* 17.897 H* EKG Reviewed by me: Yes (Tele - SR) Hospitalist ROS - Medication Medications: Active Medications Generic Name Dose Route Start Last Admin Trade Name Freq PRN Reason Stop Dose Admin Acetaminophen 650 mg 12/10/18 12:59 12/10/18 21:00 Tylenol PO 650 mg Q4H PRN Administration Headache/Fever/Mild Pain (1-3) Aspirin 81 mg 12/11/18 09:00 12/14/18 05:27 Ecotrin PO 81 mg DAILY COREY Administration Atorvastatin Calcium 80 mg 12/10/18 21:00 12/13/18 20:37 Lipitor PO 80 mg HS COREY Administration Clopidogrel Bisulfate 75 mg 12/11/18 09:00 12/14/18 05:27 Plavix PO 75 mg DAILY COREY Administration Sodium Chloride 1,000 mls @ 50 mls/hr 12/13/18 09:28 12/14/18 00:35 Normal Saline 0.9% IV 1,000 mls .Q20H COREY Administration Ondansetron HCl 4 mg 12/10/18 12:59 12/10/18 21:00 Zofran IVP 4 mg Q6H PRN Administration Nausea/Vomiting Sodium Chloride 10 ml 12/13/18 21:00 12/14/18 05:28 Flush - Normal Saline IVF 10 ml Q12HR COREY Administration - Exam General Appearance: NAD, awake alert Eye: PERRL, anicteric sclera ENT: normocephalic atraumatic, no oropharyngeal lesions Neck: supple, symmetric, no JVD, no thyromegaly, no lymphadenopathy Heart: RRR, no gallops, no rubs, normal peripheral pulses Respiratory: CTAB, no wheezes, no rales, no ronchi, normal chest expansion Gastrointestinal: soft, non-tender, non-distended, normal bowel sounds Extremities: no cyanosis, no clubbing, no edema Skin: normal turgor, no lesions Neurological: CN's grossly intact, no focal deficits, no new deficit Musculoskeletal: normal tone, normal strength Psychiatric: normal affect, normal behavior, A&O x 3 Hosp A/P (1) NSTEMI (non-ST elevated myocardial infarction) Code(s): I21.4 - NON-ST ELEVATION (NSTEMI) MYOCARDIAL INFARCTION Status: Acute Plan: Continue ASA/Plavix, consult for CV surgery regarding repeat CABG (2) CAD (coronary artery disease) Code(s): I25.10 - ATHSCL HEART DISEASE OF [place] CORONARY ARTERY W/O ANG PCTRS Status: Chronic Qualifiers: Associated angina: with unstable angina Plan: See above (3) Hypertension Code(s): I10 - ESSENTIAL (PRIMARY) HYPERTENSION Status: Chronic Qualifiers: Hypertension type: essential hypertension Qualified Code(s): I10 - Essential (primary) hypertension Plan: Labile, start Coreg (4) Noncompliance with medication regimen Code(s): Z91.14 - PATIENT'S OTHER NONCOMPLIANCE WITH MEDICATION REGIMEN Status : Chronic (5) Tobacco abuse Code(s): Z72.0 - TOBACCO USE Status: Chronic Plan: Tobacco cessation resources - Plan social service assistant, DVT proph w/SCDs Continue ASA/Plavix Continue Lipitor Continue IVF's Tobacco cessation resources CV surgery consult for potential repeat CABG
[2018-12-14] MEDS ORDERED: Lisinopril 5 MG TAB PO SCH (13:00)
[2018-12-14] MEDS: Atorvastatin Calcium 40 MG TAB PO SCH (20:19)
--- NOTE | 2018-12-15 01:06 | CON ---
DATE OF CONSULTATION: 12/14/2018 REASON FOR CONSULTATION: Evaluate patient for redo coronary artery bypass grafting. HISTORY OF PRESENT ILLNESS: Mr. Gillespie is a 63-year-old man who underwent coronary artery bypass grafting in 2002. He re-presented with chest pain and had a [id number] myocardial infarction with a troponin of 20 in July of 2017. He was re-cathed at that time. His mammary artery was patent. The remainder of his grafts had occluded. He was not felt to be a good interventional candidate at that point for any of his remaining vessels. At that time, he was placed on high-dose statin, aspirin, Plavix, lisinopril, and beta huber. He has continued to smoke. He stopped taking his medicines as soon as he ran out after July 2017 and has not refilled them since. He has not been seen by either Dr. Jenkins or Dr. Casey in the interim. After presenting with chest pain, he is currently pain free. He underwent cardiac catheterization. His mammary artery is patent to a nice LAD. He has a patent obtuse marginal branch with a critical stenosis at its origin. He also has bifurcation disease of the right coronary artery with a bypassable PDA and PL branch. I have been asked to see him to consider redo coronary artery bypass grafting. PAST MEDICAL HISTORY: 1. Coronary artery disease. 2. Hypertension. 3. Dyslipidemia. 4. Tobacco abuse. PAST SURGICAL HISTORY: As above. CURRENT MEDICATIONS: None. SOCIAL HISTORY: He has continued to smoke up until admission. REVIEW OF SYSTEMS: A 10-point review of systems been performed and is negative except as above. PHYSICAL EXAMINATION: GENERAL: This is a well-developed, thin, elderly gentleman who has obvious cigarette damage. VITAL SIGNS: His height 5 feet 11 inches. Weight is 154 pounds. BSA is 1.87. Temperature is 98.2. Pulse is 87 and regular. Blood pressure is 164/91. HEENT: Sclerae nonicteric. Pupils are equal and round bilaterally. NECK: Supple. CHEST: He has distant breath sounds bilaterally. The sternum is healed nicely. There are no moving segments. ABDOMEN: Soft and nontender. EXTREMITIES: There is no edema. Saphenous vein was harvested from the left thigh previously. His left radial artery was also harvested. LABORATORY NOTE: His hemoglobin is 13.9, platelet count 121,000. Potassium is 3.9, creatinine is 0.72. Peak troponin was 96. Chest x-ray shows no dominant lung mass and normal-appearing diaphragms bilaterally. ASSESSMENT AND PLAN: This is a 63-year-old gentleman with recurrent coronary artery disease and occluded grafts, status post coronary artery bypass grafting in 2002. He has a patent left internal mammary artery to LAD. Potential bypassable targets include an OM, PDA, and PL branch. I discussed redo coronary artery bypass grafting with him. He was put on Plavix admission. I have stopped this. It also would be nice to have him off his cigarettes for about a week prior to surgery. We discussed surgery mid week next week and he is agreeable. We will make further plans once that gets closer. Job ID: [id number]
[2018-12-15] MEDS: Lisinopril 5 MG TAB PO SCH (08:35)
[2018-12-15] MEDS: Enoxaparin Sodium 40 MG/0.4 ML SYRINGE SC SCH ×2 (08:35→20:36)
[2018-12-15] MEDS: Aspirin 81 mg Enteric Coated Tablet PO SCH (08:36)
--- NOTE | 2018-12-15 09:35 | PRG ---
DATE OF SERVICE: 12/15/2018 SUBJECTIVE: Mr. Gillespie is doing well. No chest pain or pressure. The patient is awake and alert. OBJECTIVE: VITAL SIGNS: His blood pressure 138/72 and pulse 80. LUNGS: Clear. CARDIAC: Normal S1 and normal S2. ASSESSMENT: 1. Three-vessel coronary artery disease, patent internal mammary, but he has occluded other grafts with stenosis on the obtuse marginal distribution and the right coronary distribution, large vessel, suboptimal for stenting. 2. Mildly depressed left ventricular function. 3. History of smoking. 4. Status post non-ST elevation infarction. PLAN: 1. He is off Plavix. 2. Lovenox. 3. The plan is to keep him in the hospital on Lovenox. Job ID: [id number]
--- NOTE | 2018-12-15 10:16 | PRG ---
DATE OF SERVICE: 12/15/2018 SUBJECTIVE: This morning, he is doing well. No cough. No chest pain. No shortness of breath. OBJECTIVE: VITAL SIGNS: Saturations 100% on room air, respiratory rate 18, temperature 97, blood \72. CHEST: Decreased breath sounds. No wheezing. CARDIAC: Normal S1 and S2. No gallops. ABDOMEN: No masses. ASSESSMENT AND PLAN: 1. Coronary artery disease. Scheduled for surgery next week. 2. Tobacco abuse. He is to refrain from smoking. I am going to order a PFT on him and assess his baseline status. Pulmonary will follow. Job ID: [id number] MTDD
--- NOTE | 2018-12-15 18:16 | PDOC.HOSPP ---
- Subjective Encounter Date: 12/15/18 Encounter Time: 18:15 Subjective: f/u NSTEMI with plans for redo CABG in approx 1 week. Receiving Lovenox, ASA and Lipitor. No new complaints. - Objective Vital Signs & Weight: Vital Signs (12 hours) Temp Pulse Pulse Pulse Resp BP BP 12/15/18 16:00 98.1 F 80 18 12/15/18 13:27 81 20 12/15/18 11:46 12/15/18 11:40 98.0 F 75 16 12/15/18 10:58 95 86 132/65 172/77 H 12/15/18 08:35 71 12/15/18 07:50 98.4 F 71 14 12/15/18 07:19 68 18 BP BP Pulse Ox Pulse Ox Pulse Ox 12/15/18 16:00 140/70 99 12/15/18 13:27 97 12/15/18 11:46 99 12/15/18 11:40 138/72 99 12/15/18 10:58 99 99 12/15/18 08:35 12/15/18 07:50 146/68 H 99 12/15/18 07:19 100 Weight Admit Weight 148 lb 5.938 oz Weight 156 lb Most Recent Monitor Data Heart Rate from ECG 76 NIBP 123/67 NIBP BP-Mean 85 Respiration from ECG 18 SpO2 96 I&O: 12/14/18 12/15/18 12/16/18 06:59 06:59 06:59 Intake Total 3320 2760 Output Total 4864 1350 Balance -1544 1410 Result Diagrams: 12/13/18 04:34 12/12/18 08:28 Additional Labs: Laboratory Tests 12/10/18 12/10/18 12/10/18 01:29 04:51 07:33 Troponin I 0.234 H 0.987 H* 4.525 H* 12/11/18 12/11/18 12/13/18 07:50 10:56 04:34 Troponin I 96.296 H* 65.919 H* 17.897 H* EKG Reviewed by me: Yes (Tele - SR) Hospitalist ROS - Medication Medications: Active Medications Generic Name Dose Route Start Last Admin Trade Name Freq PRN Reason Stop Dose Admin Acetaminophen 650 mg 12/10/18 12:59 12/10/18 21:00 Tylenol PO 650 mg Q4H PRN Administration Headache/Fever/Mild Pain (1-3) Albuterol/Ipratropium 3 ml 12/14/18 19:00 12/15/18 13:27 Duoneb NEB 3 ml [id number] COREY Administration Aspirin 81 mg 12/11/18 09:00 12/15/18 08:36 Ecotrin PO 81 mg DAILY COREY Administration Atorvastatin Calcium 80 mg 12/10/18 21:00 12/14/18 20:19 Lipitor PO 80 mg HS COREY Administration Enoxaparin Sodium 40 mg 12/15/18 09:00 12/15/18 08:35 Lovenox SC 40 mg 0900,2100 COREY Administration Lisinopril 5 mg 12/15/18 09:00 12/15/18 08:35 Zestril PO 5 mg DAILY COREY Administration Ondansetron HCl 4 mg 12/10/18 12:59 12/10/18 21:00 Zofran IVP 4 mg Q6H PRN Administration Nausea/Vomiting Sodium Chloride 10 ml 12/13/18 21:00 12/15/18 08:36 Flush - Normal Saline IVF 10 ml Q12HR COREY Administration - Exam General Appearance: NAD, awake alert Eye: PERRL, anicteric sclera ENT: normocephalic atraumatic, no oropharyngeal lesions Neck: supple, symmetric, no JVD, no thyromegaly Heart: RRR, no murmur, no gallops, no rubs, normal peripheral pulses Respiratory: no wheezes, no rales Respiratory - other findings: diminished sounds Gastrointestinal: soft, non-tender, non-distended, normal bowel sounds, no palpable masses Extremities: no cyanosis, no clubbing, no edema Skin: normal turgor Neurological: CN's grossly intact, no focal deficits, no new deficit Musculoskeletal: normal tone, normal strength Psychiatric: normal affect, normal behavior, A&O x 3 Hosp A/P (1) NSTEMI (non-ST elevated myocardial infarction) Code(s): I21.4 - NON-ST ELEVATION (NSTEMI) MYOCARDIAL INFARCTION Status: Acute Plan: Continue ASA, Lipitor, Lovenox and Lisinopril, plan for redo CABG in approx 1 week (2) CAD (coronary artery disease) Code(s): I25.10 - ATHSCL HEART DISEASE OF [place] CORONARY ARTERY W/O ANG PCTRS Status: Chronic Qualifiers: Associated angina: with unstable angina Plan: See above in #1 (3) Hypertension Code(s): I10 - ESSENTIAL (PRIMARY) HYPERTENSION Status: Chronic Qualifiers: Hypertension type: essential hypertension Qualified Code(s): I10 - Essential (primary) hypertension (4) Noncompliance with medication regimen Code(s): Z91.14 - PATIENT'S OTHER NONCOMPLIANCE WITH MEDICATION REGIMEN Status : Chronic (5) Tobacco abuse Code(s): Z72.0 - TOBACCO USE Status: Chronic Plan: Smoking cessation, bronchodilators, PFT's per Pulmonary - Plan social worker aide, out of bed/ambulate, DVT proph w/SCDs Continue ASA/Lovenox/MYAH-i Continue Lipitor Tobacco cessation resources CV surgery consult for potential repeat CABG Bronchodilators OOB/ambulate
[2018-12-15] MEDS: Atorvastatin Calcium 40 MG TAB PO SCH (20:36)
[2018-12-15 21:46] LABS: Hemoglobin 13.1 g/dL (14.0-18.0); Platelet Count 143 thou/uL (130-400)
--- NOTE | 2018-12-15 22:57 | ULT ---
Ultrasound Doppler duplex right groin: DATE: 12/15/2018 Time: 10:20 PM HISTORY: 63 year old male. Rule out pseudoaneurysm. TECHNIQUE: Grayscale, color-flow, and spectral analysis, of the right groin. FINDINGS: No evidence of pseudoaneurysm or hematoma. Pulse Doppler arterial waveform in right common femoral artery. Normal venous waveform in right common femoral vein. Atherosclerosis of common femoral artery, mild to moderate. IMPRESSION: 1. No pseudoaneurysm, hematoma, or arteriovenous fistula. 2. Atherosclerosis of right common femoral artery.
[2018-12-16] MEDS: Lisinopril 5 MG TAB PO SCH (09:54)
[2018-12-16] MEDS: Enoxaparin Sodium 40 MG/0.4 ML SYRINGE SC SCH ×2 (09:54→19:58)
[2018-12-16] MEDS: Aspirin 81 mg Enteric Coated Tablet PO SCH (09:54)
--- NOTE | 2018-12-16 10:30 | PRG ---
DATE OF SERVICE: 12/16/2018 SUBJECTIVE: He is walking in the chaudhari. Denies any wheezing, shortness of breath, or coughing. OBJECTIVE: VITAL SIGNS: Temperature 98, pulse 94, respiratory rate 16, blood pressure 130/80. CHEST: No wheezing or crackles. CARDIAC: Normal S1 and S2. No gallops. ABDOMEN: No masses. DIAGNOSTIC STUDIES: PFT surprisingly shows only mild COPD with normal diffusion capacity. IMPRESSION: 1. Coronary artery disease. 2. Tobacco abuse. 3. Mild chronic obstructive pulmonary disease. The patient tolerated general anesthesia for his CABG. Pulmonary Critical Care will follow while in the ICU. Continue present treatment. Job ID: [id number]
--- NOTE | 2018-12-16 18:52 | PDOC.HOSPP ---
- Subjective Encounter Date: 12/16/18 Encounter Time: 18:45 Subjective: f/u for NSTEMI and plans for redo CABG in approx 1 week. No new CP or SOB. - Objective Vital Signs & Weight: Vital Signs (12 hours) Temp Pulse Resp BP BP Pulse Ox 12/16/18 16:00 98.2 F 76 18 164/75 H 98 12/16/18 14:16 94 16 12/16/18 13:45 87 18 144/81 H 97 12/16/18 09:54 92 12/16/18 08:07 98.2 F 92 18 157/85 H 96 12/16/18 07:32 97 12/16/18 07:30 94 16 98 Weight Admit Weight 148 lb 5.938 oz Weight 160 lb 6.4 oz Most Recent Monitor Data Heart Rate from ECG 76 NIBP 123/67 NIBP BP-Mean 85 Respiration from ECG 18 SpO2 96 I&O: 12/15/18 12/16/18 12/17/18 06:59 06:59 06:59 Intake Total 2760 2150 240 Output Total 1350 4900 Balance 1410 -2750 240 Result Diagrams: 12/15/18 21:40 12/12/18 08:28 Additional Labs: Laboratory Tests 12/10/18 12/10/18 12/10/18 01:29 04:51 07:33 Troponin I 0.234 H 0.987 H* 4.525 H* 12/11/18 12/11/18 12/13/18 07:50 10:56 04:34 Troponin I 96.296 H* 65.919 H* 17.897 H* EKG Reviewed by me: Yes (Tele - SR) Hospitalist ROS - Medication Medications: Active Medications Generic Name Dose Route Start Last Admin Trade Name Freq PRN Reason Stop Dose Admin Acetaminophen 650 mg 12/10/18 12:59 12/10/18 21:00 Tylenol PO 650 mg Q4H PRN Administration Headache/Fever/Mild Pain (1-3) Albuterol/Ipratropium 3 ml 12/14/18 19:00 12/16/18 14:16 Duoneb NEB 3 ml [id number] COREY Administration Aspirin 81 mg 12/11/18 09:00 12/16/18 09:54 Ecotrin PO 81 mg DAILY COREY Administration Atorvastatin Calcium 80 mg 12/10/18 21:00 12/15/18 20:36 Lipitor PO 80 mg HS COREY Administration Enoxaparin Sodium 40 mg 12/15/18 09:00 12/16/18 09:54 Lovenox SC 40 mg 0900,2100 COREY Administration Lisinopril 5 mg 12/15/18 09:00 12/16/18 09:54 Zestril PO 5 mg DAILY COREY Administration Ondansetron HCl 4 mg 12/10/18 12:59 12/10/18 21:00 Zofran IVP 4 mg Q6H PRN Administration Nausea/Vomiting Sodium Chloride 10 ml 12/13/18 21:00 12/16/18 09:54 Flush - Normal Saline IVF 10 ml Q12HR COREY Administration - Exam General Appearance: NAD, awake alert Eye: PERRL, anicteric sclera ENT: normocephalic atraumatic, no oropharyngeal lesions Neck: supple, symmetric, no JVD, no thyromegaly, no lymphadenopathy Heart: RRR, no murmur, no gallops, no rubs, normal peripheral pulses Respiratory: no ronchi Respiratory - other findings: diminished in bases o/w clear Gastrointestinal: soft, non-tender, non-distended, normal bowel sounds, no palpable masses Extremities: no cyanosis, no clubbing, no edema Skin: normal turgor, no lesions Neurological: CN's grossly intact, no focal deficits, no new deficit Musculoskeletal: normal tone, normal strength, no muscle wasting Psychiatric: normal affect, normal behavior, A&O x 3 Hosp A/P (1) NSTEMI (non-ST elevated myocardial infarction) Code(s): I21.4 - NON-ST ELEVATION (NSTEMI) MYOCARDIAL INFARCTION Status: Acute (2) CAD (coronary artery disease) Code(s): I25.10 - ATHSCL HEART DISEASE OF [place] CORONARY ARTERY W/O ANG PCTRS Status: Chronic Qualifiers: Associated angina: with unstable angina (3) Hypertension Code(s): I10 - ESSENTIAL (PRIMARY) HYPERTENSION Status: Chronic Qualifiers: Hypertension type: essential hypertension Qualified Code(s): I10 - Essential (primary) hypertension (4) Noncompliance with medication regimen Code(s): Z91.14 - PATIENT'S OTHER NONCOMPLIANCE WITH MEDICATION REGIMEN Status : Chronic (5) Tobacco abuse Code(s): Z72.0 - TOBACCO USE Status: Chronic - Plan social media marketer, respiratory therapy, out of bed/ambulate Continue ASA/Lovenox/MYAH-i Continue Lipitor Tobacco cessation resources CV surgery consult for potential repeat CABG Bronchodilators to maximize respiratory status OOB/ambulate
[2018-12-16] MEDS: Atorvastatin Calcium 40 MG TAB PO SCH (19:58)
--- NOTE | 2018-12-17 06:59 | PRG ---
DATE OF SERVICE: SUBJECTIVE: Mr. Gillespie is doing well. No chest pain or pressure. OBJECTIVE: VITAL SIGNS: His blood pressure 160/90 and pulse 90. LUNGS: Clear. CARDIAC: Normal S1, S2. ASSESSMENT: 1. Coronary artery disease. 2. Status post non-ST elevation myocardial infarction. 3. History of smoking. He has now stopped since he has been admitted. 4. Hypercholesterolemia, on medicine. PLAN: 1. Increase lisinopril to 10 mg a day in view of hypertension. 2. Awaiting bypass surgery early next week. Job ID: [id number]
[2018-12-17] MEDS: Aspirin 81 mg Enteric Coated Tablet PO SCH (09:24)
[2018-12-17] MEDS: Enoxaparin Sodium 40 MG/0.4 ML SYRINGE SC SCH ×2 (09:24→21:04)
[2018-12-17] MEDS: Lisinopril 10 MG TAB PO SCH (09:24)
--- NOTE | 2018-12-17 10:19 | PRG ---
DATE OF SERVICE: 12/17/2018 SUBJECTIVE: This morning, he is awake and responsive. It is noted he appeared to show early mild COPD. OBJECTIVE: VITAL SIGNS: Temperature 98, pulse 80, respirations 17, blood pressure 120/80. CHEST: No wheezing or crackles. CARDIAC: Normal S1 and S2. No gallops. ABDOMEN: No masses. ASSESSMENT AND PLAN: 1. Chronic obstructive pulmonary disease, mild. 2. Tobacco abuse. 3. Coronary artery disease. Coronary artery bypass graft scheduled for Thursday. We will see him in the ICU at that time. Job ID: [id number]
--- NOTE | 2018-12-17 11:22 | PDOC.HOSPP ---
- Subjective Encounter Date: 12/17/18 Encounter Time: 11:00 Subjective: f/u NSTEMI with plans for redo CABG. Feels ok overall. Ambulating in halls without difficulty. No CP or SOB. - Objective Vital Signs & Weight: Vital Signs (12 hours) Temp Pulse Resp BP BP BP Pulse Ox 12/17/18 09:24 164/91 H 12/17/18 08:16 98.3 F 80 17 135/79 97 12/17/18 07:06 90 12 12/17/18 04:00 99.3 F 90 18 126/69 93 L 12/17/18 00:00 99.3 F 12/16/18 23:42 96 16 Weight Admit Weight 148 lb 5.938 oz Weight 161 lb 7 oz Most Recent Monitor Data Heart Rate from ECG 76 NIBP 123/67 NIBP BP-Mean 85 Respiration from ECG 18 SpO2 96 I&O: 12/16/18 12/17/18 12/18/18 06:59 06:59 06:59 Intake Total 2150 1200 Output Total 4900 1875 Balance -7466 -742 Result Diagrams: 12/15/18 21:40 12/12/18 08:28 Additional Labs: Laboratory Tests 12/10/18 12/10/18 12/10/18 01:29 04:51 07:33 Troponin I 0.234 H 0.987 H* 4.525 H* 12/11/18 12/11/18 12/13/18 07:50 10:56 04:34 Troponin I 96.296 H* 65.919 H* 17.897 H* EKG Reviewed by me: Yes (Tele - SR) Hospitalist ROS - Medication Medications: Active Medications Generic Name Dose Route Start Last Admin Trade Name Freq PRN Reason Stop Dose Admin Acetaminophen 650 mg 12/10/18 12:59 12/10/18 21:00 Tylenol PO 650 mg Q4H PRN Administration Headache/Fever/Mild Pain (1-3) Albuterol/Ipratropium 3 ml 12/14/18 19:00 12/17/18 07:06 Duoneb NEB 3 ml [id number] COREY Administration Aspirin 81 mg 12/11/18 09:00 12/17/18 09:24 Ecotrin PO 81 mg DAILY COREY Administration Atorvastatin Calcium 80 mg 12/10/18 21:00 12/16/18 19:58 Lipitor PO 80 mg HS COREY Administration Enoxaparin Sodium 40 mg 12/15/18 09:00 12/17/18 09:24 Lovenox SC 40 mg 0900,2100 COREY Administration Lisinopril 10 mg 12/17/18 09:00 12/17/18 09:24 Zestril PO 10 mg DAILY COREY Administration Ondansetron HCl 4 mg 12/10/18 12:59 12/10/18 21:00 Zofran IVP 4 mg Q6H PRN Administration Nausea/Vomiting Sodium Chloride 10 ml 12/13/18 21:00 12/17/18 09:25 Flush - Normal Saline IVF 10 ml Q12HR COREY Administration - Exam General Appearance: NAD, awake alert Eye: PERRL, anicteric sclera ENT: normocephalic atraumatic, no oropharyngeal lesions Neck: supple, symmetric, no JVD, no thyromegaly, no lymphadenopathy Heart: RRR, no murmur, no gallops, no rubs, normal peripheral pulses Respiratory: normal chest expansion Respiratory - other findings: diminished in bases o/w clear Gastrointestinal: soft, non-tender, non-distended, normal bowel sounds, no palpable masses, no hepatomegaly Extremities: no cyanosis, no clubbing, no edema Skin: normal turgor, no lesions Neurological: CN's grossly intact, no focal deficits, no new deficit Musculoskeletal: normal tone, normal strength Psychiatric: normal affect, normal behavior, A&O x 3 Hosp A/P (1) NSTEMI (non-ST elevated myocardial infarction) Code(s): I21.4 - NON-ST ELEVATION (NSTEMI) MYOCARDIAL INFARCTION Status: Acute (2) CAD (coronary artery disease) Code(s): I25.10 - ATHSCL HEART DISEASE OF [place] CORONARY ARTERY W/O ANG PCTRS Status: Chronic Qualifiers: Associated angina: with unstable angina (3) Hypertension Code(s): I10 - ESSENTIAL (PRIMARY) HYPERTENSION Status: Chronic Qualifiers: Hypertension type: essential hypertension Qualified Code(s): I10 - Essential (primary) hypertension (4) Noncompliance with medication regimen Code(s): Z91.14 - PATIENT'S OTHER NONCOMPLIANCE WITH MEDICATION REGIMEN Status : Chronic (5) Tobacco abuse Code(s): Z72.0 - TOBACCO USE Status: Chronic - Plan respiratory therapy Stable currently Continue ASA/Lovenox/MYAH-i Continue Lipitor Tobacco cessation resources CV surgery consult for potential repeat CABG Bronchodilators to maximize respiratory status OOB/ambulate
[2018-12-17] MEDS: Atorvastatin Calcium 40 MG TAB PO SCH (21:04)
[2018-12-18] MEDS: Enoxaparin Sodium 40 MG/0.4 ML SYRINGE SC SCH ×2 (09:05→21:36)
[2018-12-18] MEDS: Lisinopril 10 MG TAB PO SCH ×2 (09:06→21:36)
[2018-12-18] MEDS: Aspirin 81 mg Enteric Coated Tablet PO SCH (09:06)
--- NOTE | 2018-12-18 10:52 | PDOC.HOSPP ---
- Subjective Encounter Date: 12/18/18 Encounter Time: 10:50 Subjective: f/u NSTEMI with plans for repeat CABG after medical optimization. No recurrent CP and SOB improved with Duonebs. No new complaints. - Objective Vital Signs & Weight: Vital Signs (12 hours) Temp Pulse Resp BP BP BP Pulse Ox 12/18/18 09:06 164/91 H 12/18/18 07:41 98.5 F 91 18 132/74 93 L 12/18/18 06:50 95 14 96 12/18/18 04:00 18 94 L 12/18/18 03:44 98.1 F 101 H 19 134/72 88 L Weight Admit Weight 148 lb 5.938 oz Weight 161 lb 3.2 oz Most Recent Monitor Data Heart Rate from ECG 76 NIBP 123/67 NIBP BP-Mean 85 Respiration from ECG 18 SpO2 96 I&O: 12/17/18 12/18/18 12/19/18 06:59 06:59 06:59 Intake Total 1200 2560 Output Total 1875 1625 Balance -675 935 Result Diagrams: 12/15/18 21:40 12/12/18 08:28 Additional Labs: Laboratory Tests 12/10/18 12/10/18 12/10/18 01:29 04:51 07:33 Troponin I 0.234 H 0.987 H* 4.525 H* 12/11/18 12/11/18 12/13/18 07:50 10:56 04:34 Troponin I 96.296 H* 65.919 H* 17.897 H* EKG Reviewed by me: Yes (Tele - SR) Hospitalist ROS - Medication Medications: Active Medications Generic Name Dose Route Start Last Admin Trade Name Freq PRN Reason Stop Dose Admin Acetaminophen 650 mg 12/10/18 12:59 12/10/18 21:00 Tylenol PO 650 mg Q4H PRN Administration Headache/Fever/Mild Pain (1-3) Albuterol/Ipratropium 3 ml 12/14/18 19:00 12/18/18 06:50 Duoneb NEB 3 ml [id number] COREY Administration Aspirin 81 mg 12/11/18 09:00 12/18/18 09:06 Ecotrin PO 81 mg DAILY COREY Administration Atorvastatin Calcium 80 mg 12/10/18 21:00 12/17/18 21:04 Lipitor PO 80 mg HS COREY Administration Enoxaparin Sodium 40 mg 12/15/18 09:00 12/18/18 09:05 Lovenox SC 40 mg 0900,2100 COREY Administration Ondansetron HCl 4 mg 12/10/18 12:59 12/10/18 21:00 Zofran IVP 4 mg Q6H PRN Administration Nausea/Vomiting Sodium Chloride 10 ml 12/13/18 21:00 12/18/18 09:06 Flush - Normal Saline IVF 10 ml Q12HR COREY Administration - Exam General Appearance: NAD, awake alert Eye: PERRL, anicteric sclera ENT: normocephalic atraumatic, no oropharyngeal lesions Neck: supple, symmetric, no JVD, no thyromegaly, no lymphadenopathy Heart: RRR, no murmur, no gallops, no rubs, normal peripheral pulses Respiratory: CTAB, no wheezes, no rales, no ronchi Gastrointestinal: soft, non-tender, non-distended, normal bowel sounds, no palpable masses Extremities: no cyanosis, no clubbing, no edema Skin: normal turgor, no lesions Neurological: CN's grossly intact, no focal deficits, no new deficit Musculoskeletal: normal tone, normal strength, no muscle wasting Psychiatric: normal affect, normal behavior, A&O x 3 Hosp A/P (1) NSTEMI (non-ST elevated myocardial infarction) Code(s): I21.4 - NON-ST ELEVATION (NSTEMI) MYOCARDIAL INFARCTION Status: Acute (2) CAD (coronary artery disease) Code(s): I25.10 - ATHSCL HEART DISEASE OF [place] CORONARY ARTERY W/O ANG PCTRS Status: Chronic Qualifiers: Associated angina: with unstable angina (3) Hypertension Code(s): I10 - ESSENTIAL (PRIMARY) HYPERTENSION Status: Chronic Qualifiers: Hypertension type: essential hypertension Qualified Code(s): I10 - Essential (primary) hypertension Plan: Labile, Lisinopril 10mg BID, add beta-huber (4) Noncompliance with medication regimen Code(s): Z91.14 - PATIENT'S OTHER NONCOMPLIANCE WITH MEDICATION REGIMEN Status : Chronic (5) Tobacco abuse Code(s): Z72.0 - TOBACCO USE Status: Chronic - Plan respiratory therapy, out of bed/ambulate, DVT proph w/SCDs Stable currently Continue ASA/Lovenox/MYAH-i Continue Lipitor Tobacco cessation resources CV surgery consult for potential repeat CABG Bronchodilators to maximize respiratory status OOB/ambulate
--- NOTE | 2018-12-18 17:10 | PRG ---
DATE OF SERVICE: 12/18/2018 SUBJECTIVE: He is anxious to get his surgery over. He is tentatively on the schedule for Thursday. OBJECTIVE: GENERAL: He is in no distress. VITAL SIGNS: Her vital signs are stable. LUNGS: Clear. HEART: Regular rhythm. ABDOMEN: Soft. IMPRESSION: 1. Stable mild chronic obstructive pulmonary disease. 2. History of tobacco use. 3. Coronary artery disease. PLAN: We will continue to follow loosely until surgery. Job ID: [id number]
[2018-12-18] MEDS: Atorvastatin Calcium 40 MG TAB PO SCH (21:37)
[2018-12-19 06:10] LABS: Anion Gap 13 mmol/L (10-20); BUN (Urea Nitrogen) 7 mg/dL (8.4-25.7); Calc. Creatinine Clearance 108 mL/min (70-130); Calcium 8.7 mg/dL (7.8-10.44); Carbon Dioxide 27 mmol/L (23-31); Chloride 102 mmol/L (98-107); Estimated GFR-MDRD Greater than 90; Glucose 88 mg/dL (80-115); Potassium 3.8 mmol/L (3.5-5.1); Sodium 138 mmol/L (136-145)
--- NOTE | 2018-12-19 08:46 | PDOC.HOSPP ---
- Subjective Encounter Date: 12/19/18 Encounter Time: 08:30 Subjective: f/u for NSTEMI with plans for repeat CABG on 12/22/18. Feels ok overall and denies CP, SOB. - Objective Vital Signs & Weight: Vital Signs (12 hours) Temp Pulse Resp BP BP Pulse Ox 12/19/18 08:00 97.6 F 87 17 127/78 95 12/19/18 07:33 90 12 12/19/18 04:00 98.4 F 90 18 130/72 93 L 12/19/18 00:34 97 12/18/18 21:34 98.5 F 78 18 124/61 95 Weight Admit Weight 148 lb 5.938 oz Weight 162 lb Most Recent Monitor Data Heart Rate from ECG 76 NIBP 123/67 NIBP BP-Mean 85 Respiration from ECG 18 SpO2 96 I&O: 12/18/18 12/19/18 12/20/18 06:59 06:59 06:59 Intake Total 2560 4050 Output Total 1625 4320 Balance 935 -270 Result Diagrams: 12/15/18 21:40 12/19/18 04:59 Additional Labs: Laboratory Tests 12/10/18 12/10/18 12/10/18 01:29 04:51 07:33 Troponin I 0.234 H 0.987 H* 4.525 H* 12/11/18 12/11/18 12/13/18 07:50 10:56 04:34 Troponin I 96.296 H* 65.919 H* 17.897 H* Hospitalist ROS - Medication Medications: Active Medications Generic Name Dose Route Start Last Admin Trade Name Freq PRN Reason Stop Dose Admin Acetaminophen 650 mg 12/10/18 12:59 12/10/18 21:00 Tylenol PO 650 mg Q4H PRN Administration Headache/Fever/Mild Pain (1-3) Albuterol/Ipratropium 3 ml 12/14/18 19:00 12/19/18 07:33 Duoneb NEB 3 ml [id number] COREY Administration Aspirin 81 mg 12/11/18 09:00 12/18/18 09:06 Ecotrin PO 81 mg DAILY COREY Administration Atorvastatin Calcium 80 mg 12/10/18 21:00 12/18/18 21:37 Lipitor PO 80 mg HS COREY Administration Enoxaparin Sodium 40 mg 12/15/18 09:00 12/18/18 21:36 Lovenox SC 40 mg 0900,2100 COREY Administration Lisinopril 10 mg 12/18/18 21:00 12/18/18 21:36 Zestril PO Not Given BID COREY Ondansetron HCl 4 mg 12/10/18 12:59 12/10/18 21:00 Zofran IVP 4 mg Q6H PRN Administration Nausea/Vomiting Sodium Chloride 10 ml 12/13/18 21:00 12/18/18 21:37 Flush - Normal Saline IVF 10 ml Q12HR COREY Administration - Exam General Appearance: NAD, awake alert Eye: PERRL, anicteric sclera ENT: normocephalic atraumatic, no oropharyngeal lesions Neck: supple, symmetric, no JVD, no thyromegaly Heart: RRR, no murmur, no gallops, no rubs, normal peripheral pulses Respiratory - other findings: occasional rhonchi o/w clear Gastrointestinal: soft, non-tender, non-distended, normal bowel sounds, no palpable masses Extremities: no cyanosis, no clubbing, no edema Skin: normal turgor, no lesions Neurological: CN's grossly intact, no focal deficits, no new deficit Musculoskeletal: normal tone, normal strength Psychiatric: normal affect, normal behavior, A&O x 3 Hosp A/P (1) NSTEMI (non-ST elevated myocardial infarction) Code(s): I21.4 - NON-ST ELEVATION (NSTEMI) MYOCARDIAL INFARCTION Status: Acute (2) CAD (coronary artery disease) Code(s): I25.10 - ATHSCL HEART DISEASE OF [place] CORONARY ARTERY W/O ANG PCTRS Status: Chronic Qualifiers: Associated angina: with unstable angina (3) Hypertension Code(s): I10 - ESSENTIAL (PRIMARY) HYPERTENSION Status: Chronic Qualifiers: Hypertension type: essential hypertension Qualified Code(s): I10 - Essential (primary) hypertension (4) Noncompliance with medication regimen Code(s): Z91.14 - PATIENT'S OTHER NONCOMPLIANCE WITH MEDICATION REGIMEN Status : Chronic (5) Tobacco abuse Code(s): Z72.0 - TOBACCO USE Status: Chronic - Plan out of bed/ambulate Stable currently Continue ASA/Lovenox/MYAH-i Continue Lipitor Tobacco cessation resources CV surgery consult for potential repeat CABG 9/4/19 Bronchodilators to maximize respiratory status OOB/ambulate
[2018-12-19] MEDS: Aspirin 81 mg Enteric Coated Tablet PO SCH (09:37)
[2018-12-19] MEDS: Lisinopril 10 MG TAB PO SCH ×2 (09:37→20:20)
[2018-12-19] MEDS: Enoxaparin Sodium 40 MG/0.4 ML SYRINGE SC SCH ×2 (09:37→20:20)
[2018-12-19] MEDS: Atorvastatin Calcium 40 MG TAB PO SCH (20:20)
[2018-12-20] MEDS: Aspirin 81 mg Enteric Coated Tablet PO SCH (08:41)
[2018-12-20] MEDS: Lisinopril 10 MG TAB PO SCH ×2 (08:41→20:39)
[2018-12-20] MEDS: Enoxaparin Sodium 40 MG/0.4 ML SYRINGE SC SCH ×2 (08:41→20:39)
--- NOTE | 2018-12-20 15:36 | PDOC.HOSPP ---
- Subjective Encounter Date: 12/20/18 Encounter Time: 15:30 Subjective: f/u NSTEMI with plans for CABG. No new complaints. Ambulatory and tolerating po intake. - Objective Vital Signs & Weight: Vital Signs (12 hours) Temp Pulse Resp BP Pulse Ox 12/20/18 13:32 80 18 99 12/20/18 08:00 97.6 F 83 17 127/69 94 L 12/20/18 07:44 78 16 97 12/20/18 03:41 98 F 82 18 117/57 L 96 Weight Admit Weight 148 lb 5.938 oz Weight 160 lb 4.8 oz Most Recent Monitor Data Heart Rate from ECG 76 NIBP 123/67 NIBP BP-Mean 85 Respiration from ECG 18 SpO2 96 I&O: 12/19/18 12/20/18 12/21/18 06:59 06:59 06:59 Intake Total 4050 3960 Output Total 4320 3575 Balance -270 385 Result Diagrams: 12/15/18 21:40 12/19/18 04:59 Additional Labs: Laboratory Tests 12/10/18 12/10/18 12/10/18 01:29 04:51 07:33 Troponin I 0.234 H 0.987 H* 4.525 H* 12/11/18 12/11/18 12/13/18 07:50 10:56 04:34 Troponin I 96.296 H* 65.919 H* 17.897 H* Hospitalist ROS - Medication Medications: Active Medications Generic Name Dose Route Start Last Admin Trade Name Freq PRN Reason Stop Dose Admin Acetaminophen 650 mg 12/10/18 12:59 12/10/18 21:00 Tylenol PO 650 mg Q4H PRN Administration Headache/Fever/Mild Pain (1-3) Albuterol/Ipratropium 3 ml 12/14/18 19:00 12/20/18 13:32 Duoneb NEB 3 ml [id number] COREY Administration Aspirin 81 mg 12/11/18 09:00 12/20/18 08:41 Ecotrin PO 81 mg DAILY COREY Administration Atorvastatin Calcium 80 mg 12/10/18 21:00 12/19/18 20:20 Lipitor PO 80 mg HS COREY Administration Enoxaparin Sodium 40 mg 12/15/18 09:00 12/20/18 08:41 Lovenox SC 40 mg 0900,2100 COREY Administration Lisinopril 10 mg 12/18/18 21:00 12/20/18 08:41 Zestril PO 10 mg BID COREY Administration Ondansetron HCl 4 mg 12/10/18 12:59 12/10/18 21:00 Zofran IVP 4 mg Q6H PRN Administration Nausea/Vomiting Sodium Chloride 10 ml 12/13/18 21:00 12/20/18 08:42 Flush - Normal Saline IVF 10 ml Q12HR COREY Administration - Exam General Appearance: NAD, awake alert Eye: PERRL, anicteric sclera ENT: normocephalic atraumatic, no oropharyngeal lesions Neck: supple, symmetric, no JVD, no thyromegaly Heart: RRR, no murmur, no gallops, no rubs, normal peripheral pulses Respiratory: CTAB, no wheezes, no rales, no ronchi Gastrointestinal: soft, non-tender, non-distended, normal bowel sounds, no palpable masses, no hepatomegaly Extremities: no cyanosis, no clubbing, no edema Skin: normal turgor, no lesions Neurological: CN's grossly intact, no focal deficits, no new deficit Musculoskeletal: normal tone, normal strength Psychiatric: normal affect, normal behavior, A&O x 3 Hosp A/P (1) NSTEMI (non-ST elevated myocardial infarction) Code(s): I21.4 - NON-ST ELEVATION (NSTEMI) MYOCARDIAL INFARCTION Status: Acute (2) CAD (coronary artery disease) Code(s): I25.10 - ATHSCL HEART DISEASE OF [place] CORONARY ARTERY W/O ANG PCTRS Status: Chronic Qualifiers: Associated angina: with unstable angina (3) Hypertension Code(s): I10 - ESSENTIAL (PRIMARY) HYPERTENSION Status: Chronic Qualifiers: Hypertension type: essential hypertension Qualified Code(s): I10 - Essential (primary) hypertension (4) Noncompliance with medication regimen Code(s): Z91.14 - PATIENT'S OTHER NONCOMPLIANCE WITH MEDICATION REGIMEN Status : Chronic (5) Tobacco abuse Code(s): Z72.0 - TOBACCO USE Status: Chronic - Plan social services manager, respiratory therapy, out of bed/ambulate, DVT proph w/SCDs Stable currently Continue ASA/Lovenox/MAYH-i Continue Lipitor Tobacco cessation resources CV surgery consult for potential repeat CABG 12/22/18 Bronchodilators to maximize respiratory status OOB/ambulate
[2018-12-20] MEDS: Atorvastatin Calcium 40 MG TAB PO SCH (20:39)
[2018-12-21] MEDS: Aspirin 81 mg Enteric Coated Tablet PO SCH (08:39)
[2018-12-21] MEDS: Lisinopril 10 MG TAB PO SCH ×2 (08:39→21:22)
[2018-12-21] MEDS: Enoxaparin Sodium 40 MG/0.4 ML SYRINGE SC SCH (08:41)
--- NOTE | 2018-12-21 09:16 | PRG ---
DATE OF SERVICE: 12/21/2018 SUBJECTIVE: This morning, he is awake, alert, and responsive. He is scheduled for surgery tomorrow, bypass. He denies any shortness of breath, coughing, or wheezing. OBJECTIVE: VITAL SIGNS: Temperature 98, pulse 73, respiratory rate 16, saturations 90% on room air. CHEST: No wheezing or crackles. CARDIAC: Normal S1 and S2. No gallops. ABDOMEN: No masses. ASSESSMENT: 1. Coronary artery disease. 2. Former smoker. 3. Chronic obstructive pulmonary disease, mild. PLAN: Surgery tomorrow. Continue present treatment. We will follow. Job ID: [id number]
[2018-12-21] MEDS ORDERED: Communication Order-Pharmacy FS SCH (13:13)
--- NOTE | 2018-12-21 18:12 | PDOC.HOSPP ---
- Subjective Encounter Date: 12/21/18 Encounter Time: 18:10 Subjective: f/u NSTEMI with plans for repeat CABG. No new complaints except anxiety prior to surgery. - Objective Vital Signs & Weight: Vital Signs (12 hours) Temp Pulse Resp BP BP BP Pulse Ox 12/21/18 16:00 97.6 F 80 16 118/64 97 12/21/18 13:51 82 20 98 12/21/18 11:42 99.2 F 82 16 145/96 H 98 12/21/18 08:39 138/79 12/21/18 08:00 99.6 F 80 18 135/79 98 Weight Admit Weight 148 lb 5.938 oz Weight 157 lb 12.8 oz Most Recent Monitor Data Heart Rate from ECG 76 NIBP 123/67 NIBP BP-Mean 85 Respiration from ECG 18 SpO2 96 I&O: 12/20/18 12/21/18 12/22/18 06:59 06:59 06:59 Intake Total 3960 1170 720 Output Total 9720 5366 868 Balance 907 -0985 -779 Result Diagrams: 12/15/18 21:40 12/19/18 04:59 Additional Labs: Laboratory Tests 12/10/18 12/10/18 12/10/18 01:29 04:51 07:33 Troponin I 0.234 H 0.987 H* 4.525 H* 12/11/18 12/11/18 12/13/18 07:50 10:56 04:34 Troponin I 96.296 H* 65.919 H* 17.897 H* EKG Reviewed by me: Yes (Tele - SR) Hospitalist ROS - Medication Medications: Active Medications Generic Name Dose Route Start Last Admin Trade Name Freq PRN Reason Stop Dose Admin Acetaminophen 650 mg 12/10/18 12:59 12/10/18 21:00 Tylenol PO 650 mg Q4H PRN Administration Headache/Fever/Mild Pain (1-3) Albuterol/Ipratropium 3 ml 12/14/18 19:00 12/21/18 13:51 Duoneb NEB 3 ml [id number] COREY Administration Aspirin 81 mg 12/11/18 09:00 12/21/18 08:39 Ecotrin PO 81 mg DAILY COREY Administration Atorvastatin Calcium 80 mg 12/10/18 21:00 12/20/18 20:39 Lipitor PO 80 mg HS COREY Administration Cefazolin Sodium/Dextrose 2 gm 12/21/18 14:00 12/21/18 14:27 Ancef IVPB 2 gm Q8HR COREY Administration Lisinopril 10 mg 12/18/18 21:00 12/21/18 08:39 Zestril PO 10 mg BID COREY Administration Ondansetron HCl 4 mg 12/10/18 12:59 12/10/18 21:00 Zofran IVP 4 mg Q6H PRN Administration Nausea/Vomiting Sodium Chloride 10 ml 12/13/18 21:00 12/21/18 08:47 Flush - Normal Saline IVF 10 ml Q12HR COREY Administration - Exam General Appearance: NAD, awake alert Eye: PERRL, anicteric sclera ENT: normocephalic atraumatic, no oropharyngeal lesions Neck: supple, symmetric, no JVD, no thyromegaly Heart: RRR, no murmur, no gallops, no rubs, normal peripheral pulses Respiratory: CTAB, no wheezes, no rales Gastrointestinal: soft, non-tender, non-distended, normal bowel sounds, no palpable masses Extremities: no cyanosis, no clubbing, no edema Skin: normal turgor, no lesions Neurological: CN's grossly intact, no focal deficits, no new deficit Musculoskeletal: normal tone, normal strength Psychiatric: normal affect, normal behavior, A&O x 3 Hosp A/P (1) NSTEMI (non-ST elevated myocardial infarction) Code(s): I21.4 - NON-ST ELEVATION (NSTEMI) MYOCARDIAL INFARCTION Status: Acute (2) CAD (coronary artery disease) Code(s): I25.10 - ATHSCL HEART DISEASE OF [place] CORONARY ARTERY W/O ANG PCTRS Status: Chronic Qualifiers: Associated angina: with unstable angina (3) Hypertension Code(s): I10 - ESSENTIAL (PRIMARY) HYPERTENSION Status: Chronic Qualifiers: Hypertension type: essential hypertension Qualified Code(s): I10 - Essential (primary) hypertension (4) Noncompliance with medication regimen Code(s): Z91.14 - PATIENT'S OTHER NONCOMPLIANCE WITH MEDICATION REGIMEN Status : Chronic (5) Tobacco abuse Code(s): Z72.0 - TOBACCO USE Status: Chronic - Plan continue antibiotics, child welfare social worker, respiratory therapy, out of bed/ambulate , DVT proph w/SCDs Stable currently Continue ASA/Lovenox/MYAH-i Continue Lipitor Tobacco cessation resources CV surgery consult for potential repeat CABG 12/22/18 Bronchodilators to maximize respiratory status OOB/ambulate
[2018-12-21] MEDS: Atorvastatin Calcium 40 MG TAB PO SCH (21:20)
[2018-12-22] MEDS ORDERED: Norepinephrine 4 MG/4 ML VIAL ONE (06:18)
[2018-12-22] MEDS ORDERED: Nitroglycerin 50 MG/250 ML BOT 250 ML ONE (06:18)
[2018-12-22] MEDS ORDERED: Fentanyl 250 MCG/5 ML VIAL ONE (06:19)
[2018-12-22] MEDS ORDERED: Midazolam HCl 2 mg/2 ml Vial ONE (06:19)
[2018-12-22] MEDS ORDERED: Albumin 5% 500 ML ONE (06:38)
[2018-12-22] MEDS ORDERED: Heparin 10,000 UNITS/1 ML VIAL 30,000 UNITS in Sodium Chloride 0.9% 1,000 ML FS SCH (06:45)
[2018-12-22 08:30] VITALS: BMI 21.2
[2018-12-22] MEDS ORDERED: Thrombin 5000 UNITS/5 ML VIAL ONE (10:36)
[2018-12-22] MEDS ORDERED: Aminocaproic Acid 5 GM/20 ML VIAL ONE (10:36)
[2018-12-22] MEDS ORDERED: Potassium Chloride 60 MEQ/30 ML VIAL ONE (10:36)
[2018-12-22] MEDS ORDERED: Cardioplegic Soln 1,000 ML BAG ONE (10:36)
[2018-12-22] MEDS ORDERED: Mannitol 12.5 GM/50 ML ONE (10:36)
[2018-12-22] MEDS ORDERED: Sodium Bicarb 50 MEQ/50 ML VIAL ONE (10:36)
[2018-12-22] MEDS ORDERED: Vecuronium 10 MG VIAL ONE ×2 (10:36→12:20)
[2018-12-22] MEDS ORDERED: Lidocaine 2% PF 100 mg/5 ml Syringe ONE (10:36)
[2018-12-22] MEDS ORDERED: Protamine Sulfate 250 MG/25 ML VIAL ONE (10:36)
[2018-12-22] MEDS ORDERED: Magnesium 5 GM/10 ML VIAL ONE (10:36)
[2018-12-22] MEDS ORDERED: Rocuronium Bromide 10 MG/ML (10ML VIAL) ONE (10:36)
[2018-12-22] MEDS ORDERED: Papaverine 60 MG/2 ML VIAL ONE (10:36)
[2018-12-22] MEDS ORDERED: PROPOFOL 200 MG/20 ML VIAL ONE (10:36)
[2018-12-22] MEDS ORDERED: Heparin 5,000 UNITS/ML VIAL ONE (10:36)
[2018-12-22] MEDS ORDERED: Calcium Chloride 1 GM/10 ML Abboject SYRINGE ONE (10:36)
[2018-12-22] MEDS ORDERED: Heparin 30,000 units/30 ml VIAL ONE (10:36)
[2018-12-22] MEDS ORDERED: Succinylcholine Chloride 20 MG/ML 10 ml SYRINGE FS ONE (10:36)
[2018-12-22] MEDS ORDERED: Bupivacaine HCl 0.5%/Epinephrine 1:200,000/PF 30 ml Vial ONE (11:28)
[2018-12-22] MEDS ORDERED: Bisacodyl 5 MG TAB PO PRN (11:36)
[2018-12-22] MEDS ORDERED: Morphine 2 MG/ML SYRINGE SLOW IVP PRN (11:36)
[2018-12-22] MEDS ORDERED: Mag-Al 1200 mg/1200 mg/30 ML UDCUP PO PRN (11:36)
[2018-12-22] MEDS ORDERED: HYDROcodone/Acetaminophen 5/325 mg Tablet PO PRN (11:36)
[2018-12-22] MEDS ORDERED: Norepinephrine 8 MG/0.9% NS 250 ML IVPB PRN (11:36)
[2018-12-22] MEDS ORDERED: Ondansetron PF 4 MG/2 ML Vial IVP PRN (11:36)
[2018-12-22] MEDS ORDERED: Guaifenesin DM 100-10/5 ML UDCUP PO PRN (11:36)
[2018-12-22] MEDS ORDERED: D5 1/2 NS w/20 mEq KCL 1,000 ML IV SCH (11:36)
[2018-12-22] MEDS ORDERED: Fentanyl 100 MCG/2 ML VIAL SLOW IVP PRN ×2 (11:36)
[2018-12-22] MEDS ORDERED: Magnesium 2 GM/50 ML 2 GM in Premix Bag 1 BAG IVPB SCH (11:36)
[2018-12-22] MEDS ORDERED: Hetastarch 6% 500 ML 500 ML IVPB PRN (11:36)
[2018-12-22] MEDS ORDERED: Potassium Chloride 20 MEQ/100 ML PREMIX BAG IVPB PRN (11:36)
[2018-12-22] MEDS ORDERED: Acetaminophen 325 MG TAB PO PRN (11:36)
[2018-12-22] MEDS ORDERED: hydrALAZINE 20 MG/ML VIAL SLOW IVP PRN (11:36)
[2018-12-22] MEDS ORDERED: Nitroglycerin 50 MG/250 ML BOT 250 ML IVPB PRN (11:36)
[2018-12-22] MEDS ORDERED: Bisacodyl 10 MG SUPP PR PRN (11:36)
[2018-12-22] MEDS ORDERED: niCARdipine 25 MG in Sodium Chloride 0.9% 250 ML 250 ML IVPB PRN (11:36)
[2018-12-22] MEDS ORDERED: Dexamethasone 4 mg/ml Vial ONE (11:39)
[2018-12-22] MEDS ORDERED: Dextrose 50% Abboject 50 ML SYRINGE SLOW IVP PRN (12:19)
[2018-12-22] MEDS ORDERED: Dextrose 5% in Water 1,000 ML IV PRN (12:19)
[2018-12-22] MEDS ORDERED: Insulin Regular 300 UNITS/3 ML VIAL SC PRN (12:19)
[2018-12-22] MEDS ORDERED: Midazolam HCl 5 mg/5 ml Vial ONE (12:41)
[2018-12-22] MEDS: Ketorolac Tromethamine 30 MG/ML VIAL IVP SCH ×2 (12:58→18:01)
[2018-12-22 13:05] LABS: Actual Bicarbonate (HCO3a) 23.3 mEq/L (22-28); Base Excess (BEa) -3.6 mEq/L (-2.0 to +3.0); CO2 Tension 49.5 mmHg (35.0-45.0); Calcium, Ionized 1.11 mmol/L (1.12-1.30); Carboxyhemoglobin (COHb) 0.9 gm% (0.0-3.0); Hemoglobin (Hb) 12.9 g/dL (14.0-18.0); O2 Tension (PaO2) 100.2 mmHg (> 80.0); Potassium - ABG Lab 4.69 mmol/L (3.70-5.30); pH, Arterial 7.29 (7.35-7.45)
[2018-12-22 13:10] LABS: ALV-art Gradient 265.725 (0-20); Puncture Site LINE
[2018-12-22 13:18] LABS: #Basophils 0.1 thou/uL (0.0-0.2); #Eosinphils 0.2 thou/uL (0.0-0.7); #Lymphocytes 0.8 thou/uL (1.20-3.40); #Monocytes 1.6 thou/uL (0.11-0.59); #Neutrophils 14.9 thou/uL (1.40-6.50); %Basophils 0.6 % (0.0-1.0); %Lymphocytes 4.7 % (21.0-51.0); %Monocytes 9.2 % (0.0-10.0); %Neutrophils 84.5 % (42.0-75.0); Hemoglobin 12.5 g/dL (14.0-18.0); Mean Corpuscular HGB CONC 34.6 g/dL (32.0-36.0); Mean Corpuscular Hemoglobin 33.4 pg (27.0-31.0); Mean Corpuscular Volume 96.6 fL (78.0-98.0); Mean Platelet Volume 7.1 fL (7.4-10.4); Platelet Count 252 thou/uL (130-400); RBC Distribution Width 11.8 % (11.5-14.5); Red Blood Cell (RBC) Count 3.75 mill/uL (4.70-6.10); White Blood Cell (WBC) Count 17.6 thou/uL (4.8-10.8)
[2018-12-22 13:20] LABS: INR-International Normal Ratio 1.2; Prothrombin Time 15.6 SEC (12.0-14.7)
--- NOTE | 2018-12-22 13:21 | RAD ---
CHEST ONE VIEW: 12/22/18 INDICATION: Status post open heart surgery. COMPARISON: Prior exam dated 12/11/18. FINDINGS: The patient is now intubated. There is a right subclavian central venous catheter projecting in the r egion of the right SVC. There are midline mediastinal drains. Heart size is mildly prominence. There is mild pulmonary vascular congestion. There is mild subsegmental atelectasis within the right upper lobe. No pneumothorax is evident. There are scattered vascular calcifications. IMPRESSION: 1. Interval postsurgical change. 2. Mediastinal drain and right subclavian central venous catheter. ET tube tip seen at the level of the thoracic inlet. 3. Mild cardiomegaly with pulmonary vascular congestion with mild right upper lobe subsegmental atelectasis. POS: TPC
[2018-12-22] MEDS: CEFAZOLIN 2 GM in Premix Bag 1 BAG IVPB SCH ×2 (13:32→21:30)
[2018-12-22 13:39] LABS: Anion Gap 11 mmol/L (10-20); BUN (Urea Nitrogen) 6 mg/dL (8.4-25.7); Calc. Creatinine Clearance 113 mL/min (70-130); Calcium 7.8 mg/dL (7.8-10.44); Carbon Dioxide 23 mmol/L (23-31); Chloride 109 mmol/L (98-107); Estimated GFR-MDRD Greater than 90; Glucose 129 mg/dL (80-115); Potassium 4.7 mmol/L (3.5-5.1); Sodium 138 mmol/L (136-145)
--- NOTE | 2018-12-22 15:38 | PRG ---
DATE OF SERVICE: 12/22/2018 SUBJECTIVE: This afternoon, he is post CABG. Intubated in the vent. His x-ray shows slight cephalization. He is sedated. OBJECTIVE: VITAL SIGNS: His vital signs are otherwise stable. Sats are 100%, blood pressure 130/80, and respirations 18. CHEST: Decreased breath sounds. No wheezing. CARDIAC: Normal S1 and S2. No gallops. ABDOMEN: No masses. LABORATORY DATA: The pO2 was 100, pCO2 was 49, pH 7.29, rate of 12, 60% FiO2, 500 tidal volume. His glucose is elevated. Liver function normal. Lytes are normal. White count 17,000. IMPRESSION AND PLAN: Status post coronary artery bypass grafting; tobacco abuse; chronic obstructive pulmonary disease, mild. He has some new infiltrates on the x-ray that is probably nonspecific. We will continue to wean per protocol. We will continue neb treatments and empiric antibiotics. We will follow. Job ID: [id number]
--- NOTE | 2018-12-22 16:36 | PDOC.HOSPP ---
- Subjective Encounter Date: 12/22/18 Encounter Time: 17:00 Subjective: f/u s/p CABG x 3v and extubated this pm. Remains on Nitroglycerin and Levophed gtt. - Objective Vital Signs & Weight: Vital Signs (12 hours) Temp Pulse Resp Pulse Ox 12/22/18 16:00 14 12/22/18 15:00 97.8 F 12/22/18 14:08 100 12/22/18 14:00 12 12/22/18 13:20 12 99 12/22/18 13:00 100 12/22/18 12:50 12 Weight Admit Weight 148 lb 5.938 oz Weight 151 lb 14.4 oz Most Recent Monitor Data Heart Rate from ECG 101 NIBP 94/58 NIBP BP-Mean 72 Respiration from ECG 23 SpO2 95 I&O: 12/21/18 12/22/18 12/23/18 06:59 06:59 06:59 Intake Total 1170 1200 200 Output Total 7964 4087 8053 [facility] -2059 -960 -1470 Result Diagrams: 12/22/18 13:04 12/22/18 13:04 Additional Labs: Accuchecks 12/22/18 12/22/18 12/22/18 15:30 13:04 12:43 POC Glucose 174 H 120 H 109 12/22/18 12/22/18 12/22/18 11:58 11:48 11:02 POC Glucose 97 132 H 126 H 12/22/18 12/22/18 12/22/18 10:32 09:54 08:18 POC Glucose 124 H 129 H 93 Radiology Reviewed by me: Yes (PCXR - ETT in place, drains/lines in place) EKG Reviewed by me: Yes (Tele - SR) Hospitalist ROS - Medication Medications: Active Medications Generic Name Dose Route Start Last Admin Trade Name Freq PRN Reason Stop Dose Admin Albuterol/Ipratropium 3 ml 12/22/18 13:00 12/22/18 14:07 Duoneb NEB 3 ml [id number] COREY Administration Fentanyl 50 mcg 12/22/18 11:36 12/22/18 14:47 Sublimaze SLOW IVP 12/24/18 07:32 50 mcg Q2H PRN Administration Severe Pain (7-10) Cefazolin Sodium/Dextrose 2 gm 50 mls @ 100 mls/hr 12/22/18 14:00 12/22/18 13 :32 / Device IVPB 12/23/18 06:29 50 mls 0600,1400,2200 COREY Administration Potassium Chloride/Dextrose/Sod Cl 1,000 mls @ 40 mls/hr 12/22/18 11:36 12/22 12:46 D5 1/2 Ns W/20 Meq Kcl IV 1,000 mls .Q24H COREY Administration Insulin Human Regular 0 units 12/22/18 12:19 12/22/18 15:38 Humulin R SC 4 unit Q4H PRN Administration POST OP SLIDING SCALE Protocol Ketorolac Tromethamine 30 mg 12/22/18 12:00 12/22/18 12:58 Toradol IVP 12/25/18 12:01 30 mg Q6HR COREY Administration Morphine Sulfate 2 mg 12/22/18 11:36 12/22/18 13:30 Morphine SLOW IVP 2 mg Q15MIN PRN Administration Severe Pain (7-10) - Exam General - other findings: sedate, extubated, groggy ENT: normocephalic atraumatic, no oropharyngeal lesions Neck: supple, symmetric, no JVD, no thyromegaly, no lymphadenopathy Heart: no gallops, no rubs, normal peripheral pulses, irregular Heart - other findings: S1, S2 Respiratory: CTAB, no wheezes, no rales Respiratory - other findings: CT's in place Gastrointestinal: soft, non-tender, non-distended, normal bowel sounds, no palpable masses Extremities: no cyanosis, no edema Skin: normal turgor Neurological - other findings: lethargic, sedate post extubation Psychiatric: somnolent Hosp A/P (1) NSTEMI (non-ST elevated myocardial infarction) Code(s): I21.4 - NON-ST ELEVATION (NSTEMI) MYOCARDIAL INFARCTION Status: Acute Plan: s/p CABG x 3v, continue routine post-CABG protocol, wean off Levophed (2) CAD (coronary artery disease) Code(s): I25.10 - ATHSCL HEART DISEASE OF [place] CORONARY ARTERY W/O ANG PCTRS Status: Chronic Qualifiers: Associated angina: with unstable angina Plan: See above, continue ASA/Lipitor (3) Hypertension Code(s): I10 - ESSENTIAL (PRIMARY) HYPERTENSION Status: Chronic Qualifiers: Hypertension type: essential hypertension Qualified Code(s): I10 - Essential (primary) hypertension (4) Noncompliance with medication regimen Code(s): Z91.14 - PATIENT'S OTHER NONCOMPLIANCE WITH MEDICATION REGIMEN Status : Chronic (5) Tobacco abuse Code(s): Z72.0 - TOBACCO USE Status: Chronic Plan: Tobacco cessation resources - Plan social services analyst, respiratory therapy, DVT proph w/SCDs Stable currently Continue ASA/Lovenox/MYAH-i Continue Lipitor Tobacco cessation resources Post-CABG protocol Bronchodilators to maximize respiratory status OOB/ambulate AM lab: BMP, CBC
--- NOTE | 2018-12-22 17:10 | OP ---
DATE OF PROCEDURE: 12/22/2018 PREOPERATIVE DIAGNOSES: 1. Recurrent coronary artery disease status post coronary bypass grafting in 2001. 2. Hyperlipidemia. 3. Tobacco abuse. 4. Hypertension. POSTOPERATIVE DIAGNOSES: 1. Recurrent coronary artery disease status post coronary bypass grafting in 2001. 2. Hyperlipidemia. 3. Tobacco abuse. 4. Hypertension. PROCEDURES PERFORMED: 1. Redo sternotomy. 2. Coronary artery bypass grafting x3. a. Reverse saphenous vein to 2.0-mm OM, good conduit and target. b. Reverse saphenous vein to 1.5 mm diffusely diseased PDA, good conduit. c. Reverse saphenous vein to 1.5 mm posterolateral branch, good conduit, diffusely diseased target. LENS BLOCKER SURGEON: Dr. Vadim Giang. ANESTHESIA: General endotracheal, Dr. Gray Mendieta. PUMP TIME: 88 minutes. CROSS-CLAMP TIME: 43 minutes. LOW CORE TEMPERATURE: 34 degrees Celsius. SUPERVISOR OPEN HEARTH STOCKYARD: David Malik. DRAINS: 24-Uzbek chest tubes x2. DRIPS: Levophed. TRANSFUSIONS: None. DESCRIPTION OF PROCEDURE: After consent was obtained, the patient was brought to the operating room and placed in supine position on the operating room table. Appropriate central line and monitors was placed and general endotracheal anesthesia was induced. Chest and legs were prepped and draped in usual sterile fashion. Greater saphenous vein was harvested from the right lower extremity from groin to mid calf. Wound was irrigated and closed in layers. Median sternotomy was performed. Redo saw was used for the sternotomy. After completing the posterior table sternotomy, the wires were removed. Sternal plates nicely. The posterior table was dissected free from the epicardium and the Paul retractor placed. I was able to look at the diaphragm and the diaphragm was from the epicardium. This was followed laterally on the right around the right atrium to the aorta. The aorta and right atrium were carefully dissected free from surrounding tissues. Anterior dissection on the epicardium was then performed across the left ventricle until we encountered the mammary artery. At this point, we heparinized. Aortic and atrial cannulation was performed. After adequate heparinization, retrograde prime was performed. The patient was placed on cardiopulmonary bypass. The remainder of the anterior dissection was completed. Mammary artery was then carefully dissected free from surrounding tissues. The mammary artery was clamped. The aortic cross-clamp was applied and antegrade sanguineous cardioplegic arrest was obtained. 1 L of antegrade cold [place] cardioplegia was given. Topical cold solution was used. With the heart arrested, the posterior dissection was completed. The OM was exposed. Reverse saphenous vein was anastomosed to the OM in an end-to-side fashion with running 7-0 Prolene suture. Anastomosis was tested and was hemostatic. Reverse saphenous vein was anastomosed to the PL branch in an end-to-side fashion with running 7-0 Prolene suture. Anastomosis was tested and was hemostatic. Reverse saphenous vein was anastomosed to the PDA in an end-to-side fashion with running 7-0 Prolene suture. Anastomosis was tested and was hemostatic. The saphenous vein to PDA was anastomosed to the sidewall of the PL branch. Heart was dropped back to the pericardial well and cross-clamp removed. Partial occluding clamp was placed. Saphenous vein to the OM was anastomosed to the aortic root with running 6-0 Prolene suture. The saphenous vein to the right-sided system was anastomosed to the [place] of the OM graft. Partial occluding clamp was removed and graft was deaired. Anastomoses were inspected for hemostasis, which was good. There were some denuded areas of the epicardium posteriorly. These were treated with Surgicel and FloSeal. The patient was warmed and weaned from cardiopulmonary bypass. After resumption of sinus rhythm, good hemodynamics, temperature greater than 36.5, bypass was discontinued. Decannulation was performed and pursestring suture was secured. The right atrium had a couple of areas, where sutures had torn through, and these were repaired with pledgeted 4-0 Prolene suture. Protamine was administered. Hemostasis was ensured. The right sternal plate had fractured in multiple areas. A #5 Robicsek wire was then placed and the fractured segments were reapproximated with interrupted #5 wire. The sternum was treated with vancomycin paste. The sternum was reapproximated with #7 wire. 24-Uzbek chest tubes x2 were placed. Sternum was treated with platelet rich plasma and wires were twisted. Wound was irrigated and treated with platelet poor plasma and closed in multiple layers. Presternal blocks were performed with 0.5% Marcaine mixed with Decadron. The patient tolerated the procedure well and was transferred to the intensive care unit in stable, but critical condition. Job ID: [id number]
[2018-12-22 20:29] LABS: Hemoglobin 10.9 g/dL (14.0-18.0)
[2018-12-22 20:46] LABS: Potassium 4.5 mmol/L (3.5-5.1)
[2018-12-22] MEDS ORDERED: Famotidine/PF 20 mg/2ml Vial SLOW IVP SCH (21:00)
[2018-12-22] MEDS: Aspirin 81 mg Enteric Coated Tablet PO SCH (22:56)
[2018-12-22] MEDS: Lisinopril 10 MG TAB PO SCH (22:57)
[2018-12-23] MEDS: Ketorolac Tromethamine 30 MG/ML VIAL IVP SCH ×4 (00:23→17:49)
[2018-12-23] MEDS: HYDROcodone/Acetaminophen 5/325 mg Tablet PO PRN ×5 (01:25→20:45)
[2018-12-23 04:20] LABS: #Lymphocytes 0.6 thou/uL (1.20-3.40); #Monocytes 0.9 thou/uL (0.11-0.59); #Neutrophils 6.9 thou/uL (1.40-6.50); %Basophils 0.2 % (0.0-1.0); %Eosinophils 0.1 % (0.0-10.0); %Lymphocytes 7.4 % (21.0-51.0); %Monocytes 10.8 % (0.0-10.0); %Neutrophils 81.5 % (42.0-75.0); Hemoglobin 10.7 g/dL (14.0-18.0); Mean Corpuscular HGB CONC 33.7 g/dL (32.0-36.0); Mean Corpuscular Hemoglobin 32.8 pg (27.0-31.0); Mean Corpuscular Volume 97.2 fL (78.0-98.0); Mean Platelet Volume 7.7 fL (7.4-10.4); Platelet Count 179 thou/uL (130-400); RBC Distribution Width 11.8 % (11.5-14.5); Red Blood Cell (RBC) Count 3.25 mill/uL (4.70-6.10); White Blood Cell (WBC) Count 8.5 thou/uL (4.8-10.8)
[2018-12-23 04:24] LABS: Anion Gap 11 mmol/L (10-20); BUN (Urea Nitrogen) 10 mg/dL (8.4-25.7); Calc. Creatinine Clearance 110 mL/min (70-130); Calcium 7.8 mg/dL (7.8-10.44); Carbon Dioxide 23 mmol/L (23-31); Chloride 107 mmol/L (98-107); Estimated GFR-MDRD Greater than 90; Glucose 118 mg/dL (80-115); Potassium 4.5 mmol/L (3.5-5.1); Sodium 136 mmol/L (136-145)
[2018-12-23] MEDS: CEFAZOLIN 2 GM in Premix Bag 1 BAG IVPB SCH (06:59)
--- NOTE | 2018-12-23 08:32 | PRG ---
DATE OF SERVICE: 12/23/2018 SUBJECTIVE: This morning, he is awake, alert, and responsive. Denies pain or difficulty breathing. His chest x-ray shows a little bit of cephalization, small bilateral pleural effusion. OBJECTIVE: VITAL SIGNS: Saturations 96% room air, pulse 87, respirations 18, and blood pressure 111/55. CHEST: No wheezing or crackles. CARDIAC: Normal S1 and S2. No gallops. ABDOMEN: No masses. LABORATORY DATA: Labs unremarkable. IMPRESSION AND PLAN: Status post coronary artery bypass grafting, tobacco abuse, and chronic obstructive pulmonary disease. The patient is stable post coronary artery bypass grafting. Continue PT, supportive care, and neb treatments. We will follow. Job ID: [id number]
--- NOTE | 2018-12-23 08:48 | RAD ---
CHEST 1 VIEW: HISTORY: Post open heart surgery. COMPARISON: Radiograph from prior day. FINDINGS: The patient has been extubated. Moderate effusions. Central venous catheter tip is similar. Multiple midline sternotomy wires. A few mediastinal drains persist. IMPRESSION: Interval extubation without complication. POS: CET
[2018-12-23] MEDS ORDERED: Aspirin 325 MG TAB PO SCH (09:00)
[2018-12-23] MEDS: Magnesium 2 GM/50 ML 2 GM in Premix Bag 1 BAG IVPB SCH (09:59)
--- NOTE | 2018-12-23 10:35 | PRG ---
DATE OF SERVICE: SUBJECTIVE: Mr. Gillespie is doing great, sitting up in the chair, doing well. OBJECTIVE: VITAL SIGNS: His blood pressure is 111/55, pulse 90. LUNGS: Clear. CARDIAC: Normal S1, normal S2. ABDOMEN: Soft, nontender. EXTREMITIES: There is no edema. ASSESSMENT: 1. Status post repeat bypass surgery, doing well. 2. History of chronic obstructive pulmonary disease, breathing well. 3. Relatively low blood pressure, early postop, now normal. PLAN: 1. We will hold MYAH inhibitors and beta blockers currently. 2. He is on aspirin. 3. Resume beta blockers, low-dose when feasible. We will hold off for now. He also has COPD. Job ID: [id number]
--- NOTE | 2018-12-23 16:32 | PDOC.HOSPP ---
- Subjective Encounter Date: 12/23/18 Encounter Time: 15:05 Subjective: f/u repeat CABG x 3v POD #1. Remains with CT's and feels ok overall. Tolerating po intake. No new CP or SOB. - Objective Vital Signs & Weight: Vital Signs (12 hours) Temp Pulse Pulse Pulse Resp BP BP 12/23/18 13:48 86 14 12/23/18 13:19 93 92 128/68 113/51 L 12/23/18 12:00 98.4 F 12/23/18 08:44 94 88 131/65 125/50 L 12/23/18 08:00 98.0 F 12/23/18 07:46 12/23/18 07:45 87 15 Pulse Ox Pulse Ox Pulse Ox 12/23/18 13:48 96 12/23/18 13:19 96 98 12/23/18 12:00 12/23/18 08:44 97 95 12/23/18 08:00 97 12/23/18 07:46 97 12/23/18 07:45 98 Weight Admit Weight 148 lb 5.938 oz Weight 151 lb 14.4 oz Most Recent Monitor Data Heart Rate from ECG 88 NIBP 112/65 NIBP BP-Mean 73 Respiration from ECG 20 SpO2 94 I&O: 12/22/18 12/23/18 12/24/18 06:59 06:59 06:59 Intake Total 1200 2049.9 500 Output Total 2160 3315 55 Balance -960 -1265.1 445 Result Diagrams: 12/23/18 03:50 12/23/18 03:30 Additional Labs: Accuchecks 12/23/18 12/23/18 12/22/18 03:56 00:27 20:22 POC Glucose 118 H 123 H 152 H 12/22/18 18:00 POC Glucose 158 H Laboratory Tests 12/10/18 12/10/18 12/10/18 01:29 04:51 07:33 WBC Hgb Plt Count Troponin I 0.234 H 0.987 H* 4.525 H* 12/11/18 12/11/18 12/13/18 07:50 10:56 04:34 WBC Hgb Plt Count Troponin I 96.296 H* 65.919 H* 17.897 H* 12/13/18 12/15/18 04:34 21:40 WBC 5.4 Hgb 13.9 L Plt Count 121 L 143 Troponin I EKG Reviewed by me: Yes (Tele - SR with PAC's) Hospitalist ROS - Medication Medications: Active Medications Generic Name Dose Route Start Last Admin Trade Name Freq PRN Reason Stop Dose Admin Hydrocodone Bitart/Acetaminophen 1 tab 12/22/18 11:36 12/23/18 11:33 [place] 5/325 PO 1 tab Q4H PRN Administration Moderate Pain (4-6) Albuterol/Ipratropium 3 ml 12/22/18 13:00 12/23/18 13:48 Duoneb NEB 3 ml [id number] COREY Administration Aspirin 325 mg 12/23/18 09:00 12/23/18 09:58 Aspirin PO 325 mg DAILY COREY Administration Fentanyl 50 mcg 12/22/18 11:36 12/22/18 14:47 Sublimaze SLOW IVP 12/24/18 07:32 50 mcg Q2H PRN Administration Severe Pain (7-10) Magnesium Sulfate 2 gm/ Device 50 mls @ 50 mls/hr 12/23/18 09:00 12/23/18 09: 59 IVPB 12/24/18 09:59 50 mls QAM COREY Administration Ketorolac Tromethamine 30 mg 12/22/18 12:00 12/23/18 11:34 Toradol IVP 12/25/18 12:01 30 mg Q6HR COREY Administration Morphine Sulfate 2 mg 12/22/18 11:36 12/22/18 13:30 Morphine SLOW IVP 2 mg Q15MIN PRN Administration Severe Pain (7-10) - Exam General Appearance: NAD, awake alert Eye: PERRL, anicteric sclera ENT: normocephalic atraumatic, no oropharyngeal lesions Neck: supple, symmetric, no JVD, no thyromegaly, no lymphadenopathy Heart: RRR, no gallops, no rubs, normal peripheral pulses Respiratory: CTAB, no wheezes, no rales, no ronchi, normal chest expansion Respiratory - other findings: surgical incision intact with dressing in place, CT's in place Gastrointestinal: soft, non-tender, non-distended, normal bowel sounds, no palpable masses Extremities: no cyanosis, no clubbing, no edema Skin: normal turgor Neurological: CN's grossly intact, no focal deficits, no new deficit Musculoskeletal: normal tone, normal strength Psychiatric: normal affect, normal behavior, A&O x 3 Hosp A/P (1) NSTEMI (non-ST elevated myocardial infarction) Code(s): I21.4 - NON-ST ELEVATION (NSTEMI) MYOCARDIAL INFARCTION Status: Acute Plan: Continue ASA, Lipitor, B-huber (2) CAD (coronary artery disease) Code(s): I25.10 - ATHSCL HEART DISEASE OF [place] CORONARY ARTERY W/O ANG PCTRS Status: Chronic Qualifiers: Associated angina: with unstable angina Plan: See above, s/p CABG x 3v POD #1 (3) Hypertension Code(s): I10 - ESSENTIAL (PRIMARY) HYPERTENSION Status: Chronic Qualifiers: Hypertension type: essential hypertension Qualified Code(s): I10 - Essential (primary) hypertension Plan: Mainly hypotensive currently, hold BP meds and follow clinically (4) Noncompliance with medication regimen Code(s): Z91.14 - PATIENT'S OTHER NONCOMPLIANCE WITH MEDICATION REGIMEN Status : Chronic (5) Tobacco abuse Code(s): Z72.0 - TOBACCO USE Status: Chronic Plan: Tobacco cessation (6) Status post coronary artery bypass graft Code(s): Z95.1 - PRESENCE OF AORTOCORONARY BYPASS GRAFT Status: Acute Plan: s/p CABG x 3v POD #1, pain control - Plan aids social worker, out of bed/ambulate, DVT proph w/SCDs Stable currently Continue ASA Continue Lipitor Tobacco cessation resources Post-CABG protocol, pain control Bronchodilators to maximize respiratory status OOB/ambulate AM lab: BMP, CBC
--- NOTE | 2018-12-23 17:26 | EKG ---
Test Reason : POST CABG X2 REDO Blood Pressure : / mmHG Vent. Rate : 093 BPM Atrial Rate : 093 BPM P-R Int : 136 ms QRS Dur : 094 ms QT Int : 418 ms P-R-T Axes : 070 062 117 degrees QTc Int : 519 ms Sinus rhythm with frequent Premature ventricular complexes Prolonged QT Abnormal ECG Confirmed by LYNN SALAZAR ([id number]) on 12/23/2018 5:25:48 PM Referred By: Rafael FRANCIS Confirmed By:LYNN SALAZAR
[2018-12-23] MEDS ORDERED: Zolpidem Tartrate 5 MG TAB PO PRN (18:17)
[2018-12-23] MEDS ORDERED: Bisacodyl 10 MG SUPP PR PRN (18:17)
[2018-12-23] MEDS ORDERED: Mag-Al 1200 mg/1200 mg/30 ML UDCUP PO PRN (18:17)
[2018-12-23] MEDS ORDERED: Mineral Oil ENEMA PR PRN (18:17)
[2018-12-23] MEDS ORDERED: Bisacodyl 5 MG TAB PO PRN (18:17)
[2018-12-23] MEDS ORDERED: diphenhydrAMINE 25 MG CAP PO PRN (18:17)
[2018-12-23] MEDS ORDERED: Nitroglycerin 0.4 MG TAB (25 Tab Bottle) SL PRN (18:17)
[2018-12-23] MEDS ORDERED: Artificial Tears 18 DROP/0.9 ML EA EYE PRN (18:17)
[2018-12-23] MEDS ORDERED: Guaifenesin DM 100-10/5 ML UDCUP PO PRN (18:17)
[2018-12-23] MEDS: Atorvastatin Calcium 40 MG TAB PO SCH (20:45)
[2018-12-24] MEDS: Ketorolac Tromethamine 30 MG/ML VIAL IVP SCH ×5 (02:41→20:48)
[2018-12-24] MEDS ORDERED: Amiodarone 150 MG, Admixture Fee 1 EACH in Dextrose 5% in Water 100 ML IVPB SCH (05:30)
[2018-12-24] MEDS: Amiodarone In Dextrose 200 ML IVPB SCH ×4 (05:42→23:36)
[2018-12-24 05:46] LABS: ALT (SGPT) 24 U/L (8-55); AST (SGOT) 27 U/L (5-34); Albumin 3.4 g/dL (3.4-4.8); Alkaline Phosphatase 45 U/L (40-150); Bilirubin, Direct 0.2 mg/dL (0.1-0.3); Bilirubin, Total 0.4 mg/dL (0.2-1.2); Protein, Total 5.2 g/dL (5.8-8.1)
--- NOTE | 2018-12-24 09:05 | PRG ---
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 OBJECTIVE: VITAL SIGNS: Saturations are 100% on room air, respiratory rate 15, temperature 98, pulse 79, blood pressure 103/65. He is on amiodarone drip. CHEST: Decreased breath sounds. Minimal rhonchi. CARDIAC: Normal S1, S2. No gallops. ABDOMEN: No masses. IMPRESSION: Status post coronary artery bypass grafting, heavy tobacco abuse, mild chronic obstructive pulmonary disease, supraventricular tachycardia. Once he was switched over to oral medication, he can be discharged home. Meantime, neb treatments. He is to refrain from smoking. Job ID: [id number]
[2018-12-24] MEDS: Magnesium 2 GM/50 ML 2 GM in Premix Bag 1 BAG IVPB SCH (09:41)
[2018-12-24] MEDS: Aspirin 325 mg Enteric Coated Tablet PO SCH (09:41)
[2018-12-24 10:16] LABS: Actual Bicarbonate (HCO3a) 20.3 mEq/L (22-28); Analyzer IN Cardio OR; Base Excess (BEa) -2.5 mEq/L (-2.0 to +3.0); CO2 Tension 29.5 mmHg (35.0-45.0); Calcium, Ionized 1.03 mmol/L (1.12-1.30); Carboxyhemoglobin (COHb) 0.3 gm% (0.0-3.0); Hemoglobin (Hb) 12.2 g/dL (14.0-18.0); O2 Tension (PaO2) 307.2 mmHg (> 80.0); Potassium - ABG Lab 3.22 mmol/L (3.70-5.30); pH, Arterial 7.46 (7.35-7.45)
[2018-12-24 10:16] LABS: Analyzer IN Cardio OR; CO2 Tension 40.2 mmHg (35.0-45.0); Calcium, Ionized 1.05 mmol/L (1.12-1.30); Carboxyhemoglobin (COHb) 0.3 gm% (0.0-3.0); Hemoglobin (Hb) 12.3 g/dL (14.0-18.0); O2 Tension (PaO2) 329.8 mmHg (> 80.0); Potassium - ABG Lab 3.91 mmol/L (3.70-5.30); pH, Arterial 7.38 (7.35-7.45)
[2018-12-24 10:16] LABS: Actual Bicarbonate (HCO3a) 25.9 mEq/L (22-28); Analyzer IN Cardio OR; Base Excess (BEa) -0.8 mEq/L (-2.0 to +3.0); CO2 Tension 53.1 mmHg (35.0-45.0); Carboxyhemoglobin (COHb) 0.2 gm% (0.0-3.0); Hemoglobin (Hb) 9.9 g/dL (14.0-18.0); O2 Tension (PaO2) 442.2 mmHg (> 80.0); pH, Arterial 7.31 (7.35-7.45)
[2018-12-24 10:17] LABS: Actual Bicarbonate (HCO3a) 25.4 mEq/L (22-28); Analyzer IN Cardio OR; Base Excess (BEa) -0.5 mEq/L (-2.0 to +3.0); CO2 Tension 47.8 mmHg (35.0-45.0); Calcium, Ionized 1.01 mmol/L (1.12-1.30); Carboxyhemoglobin (COHb) 0.2 gm% (0.0-3.0); Hemoglobin (Hb) 9.8 g/dL (14.0-18.0); O2 Tension (PaO2) 472.3 mmHg (> 80.0); Potassium - ABG Lab 4.58 mmol/L (3.70-5.30); pH, Arterial 7.34 (7.35-7.45)
[2018-12-24 10:17] LABS: Actual Bicarbonate (HCO3v) 23 mEq/L (22-28); Analyzer IN Cardio OR; Base Excess -3.4 mEq/L (-2.0 to +3.0); Chloride (ABG LAB) 103 mmol/L (98-106); Hemoglobin (Hb) 9.5 g/dL (13.1-17.2); Potassium - ABG Lab 4.55 mmol/L (3.70-5.30); Sodium 132.3 mmol/L (133-146); pH (venous) 7.29 (7.32-7.43)
[2018-12-24 10:18] LABS: Actual Bicarbonate (HCO3a) 23.1 mEq/L (22-28); Analyzer IN Cardio OR; Base Excess (BEa) -4.3 mEq/L (-2.0 to +3.0); CO2 Tension 52.2 mmHg (35.0-45.0); Calcium, Ionized 1.09 mmol/L (1.12-1.30); Carboxyhemoglobin (COHb) 0.1 gm% (0.0-3.0); Hemoglobin (Hb) 12.5 g/dL (14.0-18.0); O2 Tension (PaO2) 345.8 mmHg (> 80.0); Potassium - ABG Lab 4.52 mmol/L (3.70-5.30); pH, Arterial 7.26 (7.35-7.45)
[2018-12-24 10:18] LABS: Actual Bicarbonate (HCO3a) 25.7 mEq/L (22-28); Analyzer IN Cardio OR; Base Excess (BEa) -2.5 mEq/L (-2.0 to +3.0); Calcium, Ionized 1.13 mmol/L (1.12-1.30); Carboxyhemoglobin (COHb) 0.3 gm% (0.0-3.0); Hemoglobin (Hb) 10.7 g/dL (14.0-18.0); O2 Tension (PaO2) 208.9 mmHg (> 80.0); Potassium - ABG Lab 4.27 mmol/L (3.70-5.30)
[2018-12-24 10:19] LABS: Puncture Site ALINE
[2018-12-24 10:19] LABS: Puncture Site ALINE
[2018-12-24 10:20] LABS: Puncture Site ALINE
[2018-12-24 10:21] LABS: Puncture Site ALINE
[2018-12-24 10:21] LABS: pH, Arterial 7.23 (7.35-7.45)
[2018-12-24 10:22] LABS: CO2 Tension 62.1 mmHg (35.0-45.0); Puncture Site ALINE
[2018-12-24 10:22] LABS: Puncture Site ALINE
[2018-12-24 11:13] LABS: Actual Bicarbonate (HCO3a) 20.8 mEq/L (22-28); Analyzer IN Cardio OR; Base Excess (BEa) -2.5 mEq/L (-2.0 to +3.0); CO2 Tension 32.1 mmHg (35.0-45.0); Calcium, Ionized 1.15 mmol/L (1.12-1.30); Carboxyhemoglobin (COHb) 0.3 gm% (0.0-3.0); Hemoglobin (Hb) 14.2 g/dL (14.0-18.0); O2 Tension (PaO2) 471.3 mmHg (> 80.0); Potassium - ABG Lab 4.17 mmol/L (3.70-5.30); pH, Arterial 7.43 (7.35-7.45)
[2018-12-24 11:13] LABS: Actual Bicarbonate (HCO3a) 23.7 mEq/L (22-28); Analyzer IN Cardio OR; Base Excess (BEa) -1.7 mEq/L (-2.0 to +3.0); CO2 Tension 42.6 mmHg (35.0-45.0); Calcium, Ionized 1.13 mmol/L (1.12-1.30); Carboxyhemoglobin (COHb) 0.2 gm% (0.0-3.0); Hemoglobin (Hb) 14.3 g/dL (14.0-18.0); O2 Tension (PaO2) 422.4 mmHg (> 80.0); Potassium - ABG Lab 4.29 mmol/L (3.70-5.30); pH, Arterial 7.36 (7.35-7.45)
[2018-12-24 11:14] LABS: Actual Bicarbonate (HCO3v) 27 mEq/L (22-28); Analyzer IN Cardio OR; Base Excess 1.6 mEq/L (-2.0 to +3.0); Calcium, Ionized 0.96 mmol/L (1.16-1.32); Chloride (ABG LAB) 105 mmol/L (98-106); Hemoglobin (Hb) 10.6 g/dL (13.1-17.2); Potassium - ABG Lab 5.19 mmol/L (3.70-5.30); Sodium 137.3 mmol/L (133-146)
[2018-12-24 11:14] LABS: Actual Bicarbonate (HCO3a) 22.7 mEq/L (22-28); Analyzer IN Cardio OR; Base Excess (BEa) -1.7 mEq/L (-2.0 to +3.0); CO2 Tension 37.3 mmHg (35.0-45.0); Calcium, Ionized 1.04 mmol/L (1.12-1.30); Carboxyhemoglobin (COHb) 0.3 gm% (0.0-3.0); Hemoglobin (Hb) 11.2 g/dL (14.0-18.0); O2 Tension (PaO2) 364.8 mmHg (> 80.0); Potassium - ABG Lab 5.17 mmol/L (3.70-5.30)
[2018-12-24 11:14] LABS: Actual Bicarbonate (HCO3a) 23.3 mEq/L (22-28); Analyzer IN Cardio OR; Base Excess (BEa) -0.5 mEq/L (-2.0 to +3.0); CO2 Tension 35.3 mmHg (35.0-45.0); Calcium, Ionized 1.03 mmol/L (1.12-1.30); Carboxyhemoglobin (COHb) 0.3 gm% (0.0-3.0); Hemoglobin (Hb) 11.6 g/dL (14.0-18.0); Potassium - ABG Lab 5.34 mmol/L (3.70-5.30); pH, Arterial 7.44 (7.35-7.45)
[2018-12-24 11:15] LABS: Puncture Site ALINE
[2018-12-24 11:15] LABS: Puncture Site ALINE
[2018-12-24 11:15] LABS: Actual Bicarbonate (HCO3a) 22.4 mEq/L (22-28); Analyzer IN Cardio OR; Base Excess (BEa) -2.2 mEq/L (-2.0 to +3.0); CO2 Tension 38.1 mmHg (35.0-45.0); Calcium, Ionized 1.18 mmol/L (1.12-1.30); Carboxyhemoglobin (COHb) 0.3 gm% (0.0-3.0); Hemoglobin (Hb) 12.4 g/dL (14.0-18.0); O2 Tension (PaO2) 395.9 mmHg (> 80.0); pH, Arterial 7.39 (7.35-7.45)
[2018-12-24 11:16] LABS: Puncture Site ALINE
[2018-12-24 11:16] LABS: Puncture Site ALINE
[2018-12-24 11:17] LABS: Puncture Site ALINE
--- NOTE | 2018-12-24 12:42 | PDOC.HOSPP ---
- Subjective Subjective: Seen and examined. Sitting up in chair. Breathing well on room air. No chest tubes. Not using incentive spirometry. Low BP, not able to tolerate beta huber or Casper inh at this time. No acute complaints. - Objective Vital Signs & Weight: Vital Signs (12 hours) Temp Pulse Pulse Pulse Resp BP BP 12/24/18 11:42 98.1 F 88 16 12/24/18 08:45 97 93 113/57 L 90/51 L 12/24/18 08:00 98.1 F 79 15 12/24/18 07:01 62 16 12/24/18 03:45 99.1 F 47 L 20 12/24/18 03:21 98.3 F 81 16 BP BP BP Pulse Ox 12/24/18 11:42 95/51 L 100 12/24/18 08:45 12/24/18 08:00 103/65 100 12/24/18 07:01 94 L 12/24/18 03:45 116/55 L 92 L 12/24/18 03:21 122/78 96 Weight Admit Weight 148 lb 5.938 oz Weight 166 lb 12.8 oz Most Recent Monitor Data Heart Rate from ECG 96 NIBP 105/49 NIBP BP-Mean 81 Respiration from ECG 18 SpO2 95 I&O: 12/23/18 12/24/18 12/25/18 06:59 06:59 06:59 Intake Total 2049.9 500 Output Total 3315 505 Balance -1265.1 -5 Result Diagrams: 12/23/18 03:50 12/23/18 03:30 Hospitalist ROS - Review of Systems All other systems reviewed; all pertinent +/- noted in HPI/Subj - Medication Medications: Active Medications Generic Name Dose Route Start Last Admin Trade Name Freq PRN Reason Stop Dose Admin Hydrocodone Bitart/Acetaminophen 1 tab 12/22/18 11:36 12/23/18 20:45 [place] 5/325 PO 1 tab Q4H PRN Administration Moderate Pain (4-6) Albuterol/Ipratropium 3 ml 12/22/18 13:00 12/24/18 07:01 Duoneb NEB 3 ml [id number] COREY Administration Aspirin 325 mg 12/24/18 09:00 12/24/18 09:41 Ecotrin PO 325 mg DAILY COREY Administration Atorvastatin Calcium 80 mg 12/23/18 21:00 12/23/18 20:45 Lipitor PO 80 mg HS COREY Administration Amiodarone HCl/Dextrose 200 mls @ 0 mls/hr 12/24/18 05:15 12/24/18 10:55 Nexterone IVPB 200 mls INF COREY Administration Protocol As Directed Ketorolac Tromethamine 30 mg 12/24/18 09:00 12/24/18 09:40 Toradol IVP 12/25/18 12:01 30 mg 0300,0900,1500,2100 COREY Administration - Exam General Appearance: NAD Eye: anicteric sclera Eye - other findings: EOMI ENT: no oropharyngeal lesions, moist mucosa Neck: supple, symmetric, no lymphadenopathy Heart: no murmur, no gallops, no rubs Heart - other findings: S1 and S2 present Respiratory: no wheezes, no rales, no ronchi Respiratory - other findings: Decreased breath sounds lower lung [place] Gastrointestinal: soft, non-tender, non-distended, no palpable masses, no guarding, no rigidity Extremities: no edema Skin: no lesions, no rashes Neurological: CN's grossly intact, no weakness Musculoskeletal: normal strength Psychiatric: normal affect, A&O x 3 Hosp A/P (1) Status post coronary artery bypass graft Code(s): Z95.1 - PRESENCE OF AORTOCORONARY BYPASS GRAFT Status: Acute (2) Combined systolic and diastolic cardiac dysfunction Code(s): I51.89 - OTHER ILL-DEFINED HEART DISEASES Status: Acute (3) NSTEMI (non-ST elevated myocardial infarction) Code(s): I21.4 - NON-ST ELEVATION (NSTEMI) MYOCARDIAL INFARCTION Status: Acute (4) CAD (coronary artery disease) Code(s): I25.10 - ATHSCL HEART DISEASE OF [place] CORONARY ARTERY W/O ANG PCTRS Status: Chronic Qualifiers: Associated angina: with unstable angina (5) Dyslipidemia Code(s): E78.5 - HYPERLIPIDEMIA, UNSPECIFIED Status: Chronic (6) Hypertension Code(s): I10 - ESSENTIAL (PRIMARY) HYPERTENSION Status: Chronic Qualifiers: Hypertension type: essential hypertension Qualified Code(s): I10 - Essential (primary) hypertension (7) Noncompliance with medication regimen Code(s): Z91.14 - PATIENT'S OTHER NONCOMPLIANCE WITH MEDICATION REGIMEN Status : Chronic (8) Tobacco abuse Code(s): Z72.0 - TOBACCO USE Status: Chronic - Plan Plan: Medical unit with telemetry Cardiology consult, recommendations appreciated CVT surgery consult, recommendations appreciated Pulmonology consult, recommendations appreciated Cardiomyopathy regimen being held as his BP would not tolerate Will need low dose beta huber and Casper inh Statin ASA Continuos telemetry to monitor for arrhythmia Replace electrolytes as needed Incentive spirometry Q1 hour while awake PT/OT GI and DVT PPX
--- NOTE | 2018-12-24 13:18 | PRG ---
DATE OF SERVICE: 12/24/2018 SUBJECTIVE: Mr. Gillespie has had a lot of premature ventricular contractions, some ventricular bigeminy, some nonsustained ventricular tachycardia up to 10 beats. He is currently in sinus rhythm with occasional PVC. No chest pain or pressure. OBJECTIVE: GENERAL: He is sitting up in the chair. VITAL SIGNS: Blood pressure 90/50, pulse 80 and it is regular. HEENT: Eyes, sclerae nonicteric. LUNGS: Clear CARDIAC: Normal S1 and normal S2. ABDOMEN: Soft and nontender. ASSESSMENT: 1. Three-vessel coronary artery disease with patent internal mammary artery. 2. Recent non-ST elevation myocardial infarction. 3. Recent bypass surgery. 4. PVCs, bigeminy, and nonsustained ventricular tachycardia. 5. Ejection fraction of 40%. PLAN: 1. He is on intravenous amiodarone. 2. Potassium and magnesium repletion. 3. We may consider starting beta blockers when blood pressure improves and need to keep the patient in the hospital until the rhythm stabilizes. Job ID: [id number]
--- NOTE | 2018-12-24 13:21 | PFT ---
PATIENT HISTORY: HEIGHT: 72 IN WEIGHT: 156 SMOKER: YES HOW LON YRS PACKS PER DAY: 1 PRODUCTIVE COUGH: NO LUNG DISEASE: PHYSICIAN INTERPRETATION FINAL REPORT: Patient had good effort and good cooperation. FVC 4.19 (86%), FEV1 2.71 (74%), FEV1/FVC 0.65 RV 2.74 (110%), TLC 6.77 (92%) DLCO 26.98 (85%) There is a reduction to FEV1. The FVC falls within the lower limits of normal. The ratio is reduced, consistent with obstructive air flow limitation. There is no significant improvement following the administration of a bronchodilator. The flow volume loops are normal. The Residual volume and Total Lung Capacity are normal. Diffusion capacity fall within the normal limits. IMPRESSION: Overall, these pulmonary function studies are consistent with mild obstructive lung disease with no reversibility and gas exchange that is within the lower limits of normal. Clinical correlation is mandatory as these are in-patient studies. Custom Applicator: PEDRO Continuity Clerk: PEDRO TORRES
[2018-12-24] MEDS: Atorvastatin Calcium 40 MG TAB PO SCH (20:49)
[2018-12-25] MEDS: Ketorolac Tromethamine 30 MG/ML VIAL IVP SCH ×2 (03:50→08:19)
[2018-12-25 06:50] LABS: Anion Gap 12 mmol/L (10-20); BUN (Urea Nitrogen) 16 mg/dL (8.4-25.7); Calc. Creatinine Clearance 110 mL/min (70-130); Calcium 8.1 mg/dL (7.8-10.44); Carbon Dioxide 25 mmol/L (23-31); Chloride 98 mmol/L (98-107); Estimated GFR-MDRD Greater than 90; Glucose 100 mg/dL (80-115); Potassium 4.5 mmol/L (3.5-5.1); Sodium 130 mmol/L (136-145)
[2018-12-25] MEDS: Aspirin 325 mg Enteric Coated Tablet PO SCH (08:19)
--- NOTE | 2018-12-25 12:26 | PRG ---
DATE OF SERVICE: 12/25/2018 SUBJECTIVE: The patient is doing well, has no complaints. OBJECTIVE: VITAL SIGNS: Temperature 98.6, pulse 77, respirations 17, O2 saturation 100% on room air. HEENT: Unremarkable. NECK: No adenopathy or JVD. CHEST: Clear. CARDIAC: S1 and S2. Regular. ABDOMEN: Soft. EXTREMITIES: No edema. LABORATORY DATA: Sodium 130, potassium 4.5, chloride 98, CO2 of 25, BUN 16, creatinine 0.7, glucose 100. He remains on amiodarone drip. ASSESSMENT: 1. Status post coronary artery bypass grafting surgery. 2. Mild chronic obstructive pulmonary disease. PLAN: I think he will remain as long as he needs the IV amiodarone. His pulmonary status seems stable on the nebulization treatments. Job ID: [id number]
--- NOTE | 2018-12-25 13:20 | PDOC.HOSPP ---
- Subjective Subjective: Seen and examined. Doing well today. Sitting up right. Breathing well on room air. He is on IV amiodarone for rhythm control. Blood pressures are soft. No acute overnight events. No new complaints. - Objective Vital Signs & Weight: Vital Signs (12 hours) Temp Pulse Pulse Pulse Resp BP BP 12/25/18 13:03 88 78 148/66 H 103/63 12/25/18 12:21 80 16 12/25/18 12:05 98.6 F 77 17 12/25/18 08:18 98.6 F 90 20 12/25/18 06:52 81 16 12/25/18 04:00 98.6 F 84 16 BP BP Pulse Ox Pulse Ox 12/25/18 13:03 97 12/25/18 12:21 95 12/25/18 12:05 117/59 L 100 12/25/18 08:18 113/62 97 12/25/18 06:52 96 12/25/18 04:00 90/59 L 98 Weight Admit Weight 148 lb 5.938 oz Weight 166 lb Most Recent Monitor Data Heart Rate from ECG 96 NIBP 105/49 NIBP BP-Mean 81 Respiration from ECG 18 SpO2 95 I&O: 12/24/18 12/25/18 12/26/18 06:59 06:59 06:59 Intake Total 500 1348 Output Total 505 700 Balance -5 648 Result Diagrams: 12/23/18 03:50 12/25/18 06:10 Hospitalist ROS - Review of Systems All other systems reviewed; all pertinent +/- noted in HPI/Subj - Medication Medications: Active Medications Generic Name Dose Route Start Last Admin Trade Name Freq PRN Reason Stop Dose Admin Hydrocodone Bitart/Acetaminophen 1 tab 12/22/18 11:36 12/23/18 20:45 [place] 5/325 PO 1 tab Q4H PRN Administration Moderate Pain (4-6) Albuterol/Ipratropium 3 ml 12/22/18 13:00 12/25/18 12:21 Duoneb NEB 3 ml [id number] COREY Administration Aspirin 325 mg 12/24/18 09:00 12/25/18 08:19 Ecotrin PO 325 mg DAILY COREY Administration Atorvastatin Calcium 80 mg 12/23/18 21:00 12/24/18 20:49 Lipitor PO 80 mg HS COREY Administration Amiodarone HCl/Dextrose 200 mls @ 10 mls/hr 12/24/18 05:15 12/24/18 23:36 Nexterone IVPB 200 mls INF COREY Administration Protocol - Exam General Appearance: NAD Eye: anicteric sclera Eye - other findings: EOMI ENT: no oropharyngeal lesions, moist mucosa Neck: supple, symmetric Heart: no murmur, no gallops, no rubs Heart - other findings: Regular rhythm this AM, slow rate about 60bpm Respiratory: CTAB, no wheezes, no rales, no ronchi, normal chest expansion Gastrointestinal: soft, non-tender, non-distended, no guarding, no rigidity Extremities: no edema Skin: no lesions, no rashes Neurological: CN's grossly intact, no weakness, no focal deficits Musculoskeletal: no muscle wasting Psychiatric: normal affect, A&O x 3 Hosp A/P (1) Status post coronary artery bypass graft Code(s): Z95.1 - PRESENCE OF AORTOCORONARY BYPASS GRAFT Status: Acute (2) Combined systolic and diastolic cardiac dysfunction Code(s): I51.89 - OTHER ILL-DEFINED HEART DISEASES Status: Acute (3) NSTEMI (non-ST elevated myocardial infarction) Code(s): I21.4 - NON-ST ELEVATION (NSTEMI) MYOCARDIAL INFARCTION Status: Acute (4) CAD (coronary artery disease) Code(s): I25.10 - ATHSCL HEART DISEASE OF [place] CORONARY ARTERY W/O ANG PCTRS Status: Chronic Qualifiers: Associated angina: with unstable angina (5) Dyslipidemia Code(s): E78.5 - HYPERLIPIDEMIA, UNSPECIFIED Status: Chronic (6) Hypertension Code(s): I10 - ESSENTIAL (PRIMARY) HYPERTENSION Status: Chronic Qualifiers: Hypertension type: essential hypertension Qualified Code(s): I10 - Essential (primary) hypertension (7) Noncompliance with medication regimen Code(s): Z91.14 - PATIENT'S OTHER NONCOMPLIANCE WITH MEDICATION REGIMEN Status : Chronic (8) Tobacco abuse Code(s): Z72.0 - TOBACCO USE Status: Chronic - Plan Plan: Medical unit with telemetry Cardiology consult, recommendations appreciated CVT surgery consult, recommendations appreciated Pulmonology consult, recommendations appreciated IV amiodarone for rhythm control Cardiomyopathy regimen being held as his BP would not tolerate Will need low dose beta huber and Casper inh Statin ASA Continuos telemetry to monitor for arrhythmia Replace electrolytes as needed Incentive spirometry Q1 hour while awake PT/OT GI and DVT PPX
--- NOTE | 2018-12-25 14:45 | PRG ---
DATE OF SERVICE: 12/25/2018 SUBJECTIVE: Mr. Gillespie is doing better. He is up walking around. He has occasional PVCs, but the ventricular ectopy improved. He is hypotensive last night. OBJECTIVE: VITAL SIGNS: Most recent blood pressure was listed as 148/66 and also 103/63. The above listed at 11:00 a.m. LUNGS: Clear. CARDIAC: Normal S1. Normal S2. ABDOMEN: Soft and nontender. EXTREMITIES: No edema. ASSESSMENT: 1. Premature contractions, improved. 2. Status post repeat bypass surgery. 3. Ejection fraction 40%. PLAN: 1. Discontinue intravenous amiodarone. 2. Change to oral amiodarone. 3. We would like to keep him till Thursday to make sure he is going to be stable. Job ID: [id number]
[2018-12-25] MEDS: HYDROcodone/Acetaminophen 5/325 mg Tablet PO PRN (19:08)
[2018-12-25] MEDS: Atorvastatin Calcium 40 MG TAB PO SCH (20:55)
[2018-12-25] MEDS: Amiodarone 200 MG TAB PO SCH (20:55)
[2018-12-26] MEDS: Aspirin 325 mg Enteric Coated Tablet PO SCH (08:25)
[2018-12-26] MEDS: Amiodarone 200 MG TAB PO SCH (08:25)
--- NOTE | 2018-12-26 10:12 | RAD ---
XR Chest Pa Lat STANDARD History: Cough Comparison: Radiograph December 23, 2018 Findings: Redistribution of layering pleural effusions, moderate, bilaterally. Compressive atelectasi s both lower lobes. Improved aeration left lower lobe. No pneumothorax. Mediastinal drains have been removed. Central venous catheter tip projects over the right atrium. Impression: Redistribution of moderate layering bilateral pleural effusions and improved aeration lef t lower lobe.
--- NOTE | 2018-12-26 11:11 | PRG ---
DATE OF SERVICE: 12/26/2018 SUBJECTIVE: Mr. Gillespie is feeling better. He is up walking the halls. He looks very good. No chest pain or pressure. OBJECTIVE: VITAL SIGNS: Blood pressure 113/57, pulse is 86. There are very few PVCs now. LUNGS: Clear. CARDIAC: Normal S1. Normal S2. ABDOMEN: Soft and nontender. EXTREMITIES: There is no edema. ASSESSMENT: 1. Status post repeat bypass surgery. 2. Premature ventricular ectopy, markedly diminished. PLAN: 1. Reduce the amiodarone to 200 mg once a day. We will treat him for 30 days only. 2. Probably home tomorrow if he is stable. Job ID: [id number]
--- NOTE | 2018-12-26 15:16 | PRG ---
DATE OF SERVICE: 12/26/2018 SUBJECTIVE: He is awake. He is walking around the halls. He has no complaints, wants to go home tomorrow. OBJECTIVE: VITAL SIGNS: On exam, temperature is 98.7, pulse 80, respirations 16, and O2 saturation 98% on room air. HEENT: Unremarkable. NECK: No adenopathy. LUNGS: Clear. CARDIAC: S1 and S2. Regular. IMAGING DATA: His chest x-ray shows bilateral small effusions. ASSESSMENT: 1. Post coronary artery bypass grafting with improved aeration of the lower lobes. 2. Chronic obstructive pulmonary disease. PLAN: I agree with discharge plans for tomorrow. Ambulate as tolerated. Continue nebulization treatments, pulmonary toilet measures. Job ID: [id number]
--- NOTE | 2018-12-26 15:19 | PDOC.HOSPP ---
- Subjective Subjective: Seen and examined. States that cough is worse today with clear sputum. CXR ordered and reviewed is without acute CHF, bilateral pleural effusions are still present. - Objective Vital Signs & Weight: Vital Signs (12 hours) Temp Pulse Pulse Pulse Resp BP BP 12/26/18 12:48 80 16 12/26/18 11:53 95 91 130/58 L 105/69 12/26/18 11:34 98.7 F 83 20 12/26/18 08:25 12/26/18 07:32 98.8 F 86 15 12/26/18 07:04 94 16 12/26/18 04:00 98.5 F 81 14 BP BP Pulse Ox 12/26/18 12:48 98 12/26/18 11:53 12/26/18 11:34 109/63 99 12/26/18 08:25 99 12/26/18 07:32 113/57 L 98 12/26/18 07:04 96 12/26/18 04:00 114/65 97 Weight Admit Weight 148 lb 5.938 oz Weight 160 lb 12.8 oz Most Recent Monitor Data Heart Rate from ECG 96 NIBP 105/49 NIBP BP-Mean 81 Respiration from ECG 18 SpO2 95 I&O: 12/25/18 12/26/18 12/27/18 06:59 06:59 06:59 Intake Total 1348 1940 Output Total 700 1500 Balance 648 440 Result Diagrams: 12/23/18 03:50 12/25/18 06:10 Radiology Reviewed by me: Yes (CXR) Hospitalist ROS - Medication Medications: Active Medications Generic Name Dose Route Start Last Admin Trade Name Freq PRN Reason Stop Dose Admin Hydrocodone Bitart/Acetaminophen 1 tab 12/22/18 11:36 12/25/18 19:08 [employer] 5/325 PO 1 tab Q4H PRN Administration Moderate Pain (4-6) Albuterol/Ipratropium 3 ml 12/22/18 13:00 12/26/18 12:48 Duoneb NEB 3 ml [id number] COREY Administration Aspirin 325 mg 12/24/18 09:00 12/26/18 08:25 Ecotrin PO 325 mg DAILY COREY Administration Atorvastatin Calcium 80 mg 12/23/18 21:00 12/25/18 20:55 Lipitor PO 80 mg HS COREY Administration Sodium Chloride 10 ml 12/25/18 21:00 12/26/18 08:25 Flush - Normal Saline IVF 10 ml Q12HR COREY Administration Hosp A/P (1) Status post coronary artery bypass graft Code(s): Z95.1 - PRESENCE OF AORTOCORONARY BYPASS GRAFT Status: Acute (2) Combined systolic and diastolic cardiac dysfunction Code(s): I51.89 - OTHER ILL-DEFINED HEART DISEASES Status: Acute (3) NSTEMI (non-ST elevated myocardial infarction) Code(s): I21.4 - NON-ST ELEVATION (NSTEMI) MYOCARDIAL INFARCTION Status: Acute (4) CAD (coronary artery disease) Code(s): I25.10 - ATHSCL HEART DISEASE OF [place] CORONARY ARTERY W/O ANG PCTRS Status: Chronic Qualifiers: Associated angina: with unstable angina (5) Dyslipidemia Code(s): E78.5 - HYPERLIPIDEMIA, UNSPECIFIED Status: Chronic (6) Hypertension Code(s): I10 - ESSENTIAL (PRIMARY) HYPERTENSION Status: Chronic Qualifiers: Hypertension type: essential hypertension Qualified Code(s): I10 - Essential (primary) hypertension (7) Noncompliance with medication regimen Code(s): Z91.14 - PATIENT'S OTHER NONCOMPLIANCE WITH MEDICATION REGIMEN Status : Chronic (8) Tobacco abuse Code(s): Z72.0 - TOBACCO USE Status: Chronic - Plan Plan: Medical unit with telemetry Cardiology consult, recommendations appreciated CVT surgery consult, recommendations appreciated Pulmonology consult, recommendations appreciated IV amiodarone for rhythm control Cardiomyopathy regimen being held as his BP would not tolerate Will need low dose beta huber and Casper inh Statin ASA Continuos telemetry to monitor for arrhythmia Replace electrolytes as needed Incentive spirometry Q1 hour while awake PT/OT GI and DVT PPX
[2018-12-26] MEDS: HYDROcodone/Acetaminophen 5/325 mg Tablet PO PRN (15:32)
[2018-12-26] MEDS: Atorvastatin Calcium 40 MG TAB PO SCH (20:40)
[2018-12-27 05:27] LABS: Anion Gap 13 mmol/L (10-20); BUN (Urea Nitrogen) 9 mg/dL (8.4-25.7); Calc. Creatinine Clearance 101 mL/min (70-130); Calcium 9.1 mg/dL (7.8-10.44); Carbon Dioxide 26 mmol/L (23-31); Chloride 101 mmol/L (98-107); Estimated GFR-MDRD Greater than 90; Glucose 93 mg/dL (80-115); Magnesium 2.4 mg/dL (1.6-2.6); Potassium 4.6 mmol/L (3.5-5.1); Sodium 135 mmol/L (136-145)
--- NOTE | 2018-12-27 08:15 | DIS ---
DATE OF ADMISSION: 12/10/2018 DATE OF DISCHARGE: 12/27/2018 DIAGNOSES: 1. Recurrent coronary artery disease. 2. Hypertension. 3. Dyslipidemia. 4. Continued tobacco abuse. 5. COPD. PROCEDURES: 1. Cardiac catheterization. 2. Redo coronary artery bypass grafting -. a. Reverse saphenous vein to obtuse marginal. b. Reverse saphenous vein to posterior descending artery. c. Reverse saphenous vein to posterolateral branch. DESCRIPTION OF HOSPITAL STAY: Mr. Gillespie presented through the emergency department with chest pain. He has known recurrent coronary artery disease. He underwent cardiac catheterization . He received Plavix on admission. Due to his tobacco history and recent Plavix administration, he was kept in the hospital for a week and then underwent redo coronary artery bypass grafting. He has done quite well postoperatively. He had some PVCs/a short run of ventricular tachycardia, which was controlled with amiodarone. Remainder of his hospital stay surgery. At the time of discharge, he is ambulatory, tolerating regular diet, having good bowel and bladder function. Incisions are clean and dry without evidence of infection. DISCHARGE MEDICATIONS: 1. Aspirin 325 mg daily. 2. Lipitor 40 mg at bedtime. 3. Amiodarone 200 mg daily. 4. [place] 5/325 one to two q.6 hours p.r.n. pain. FOLLOWUP: Follow up is with me in [address] Casey in a month. Job ID: [id number]
[2018-12-27] MEDS: Aspirin 325 mg Enteric Coated Tablet PO SCH (08:41)
[2018-12-27] MEDS ORDERED: Amiodarone 200 MG TAB PO SCH (09:00)
--- NOTE | 2018-12-27 09:27 | PRG ---
DATE OF SERVICE: 12/27/2018 SUBJECTIVE: This morning, he is awake, alert, and responsive. No pain. No shortness of breath. He is to be discharged home today. OBJECTIVE: VITAL SIGNS: His saturations are 93% on room air, respirations 18, temperature 98, pulse 84, blood pressure 136/60. CHEST: No wheezing. CARDIAC: Normal S1 and S2. No gallops. ABDOMEN: No masses. ASSESSMENT AND PLAN: Status post coronary artery bypass graft, tobacco abuse, mild chronic obstructive pulmonary disease. He was on no medication for his breathing. He was told to call if he needs any. See in the office as needed. Job ID: [id number]
--- NOTE | 2018-12-27 09:31 | PRG ---
DATE OF SERVICE: 12/27/2018 SUBJECTIVE: Mr. Gillesipe is doing well, is sitting up in a chair. No complaints. The ventricular ectopy has dramatically improved. OBJECTIVE: VITAL SIGNS: His blood pressure is 130/60 and pulse is 80. LUNGS: Clear. CARDIAC: Normal S1 and normal S2. ASSESSMENT: 1. Status post repeat coronary artery bypass grafting. 2. Chronic obstructive pulmonary disease, doing well. 3. Hypertension, stable. PLAN: 1. The patient will be released home on amiodarone 200 mg once a day for one month only. 2. Aspirin 325 mg a day. 3. Atorvastatin 80 mg a day. 4. He will be seen back in the office in three weeks. Job ID: [id number]
--- NOTE | 2018-12-27 09:57 | PDOC.HOSPP ---
- Subjective Subjective: Seen and examined. Breathing well on room air, less cough today. Excited to go home today. Cardiomyopathy regimen limited secondary to hypotension. Has information for follow up with all specialist. - Objective Vital Signs & Weight: Vital Signs (12 hours) Temp Pulse Resp BP BP Pulse Ox 12/27/18 07:19 98.8 F 84 18 130/66 93 L 12/27/18 06:56 97 16 96 12/27/18 03:10 99.4 F 77 14 112/55 L 93 L 12/27/18 01:25 77 12 Weight Admit Weight 148 lb 5.938 oz Weight 161 lb 9.6 oz Most Recent Monitor Data Heart Rate from ECG 96 NIBP 105/49 NIBP BP-Mean 81 Respiration from ECG 18 SpO2 95 I&O: 12/26/18 12/27/18 12/28/18 06:59 06:59 06:59 Intake Total 1940 1900 Output Total 1500 2275 Balance 440 -375 Result Diagrams: 12/23/18 03:50 12/27/18 04:25 Radiology Reviewed by me: Yes (CXR) Hospitalist ROS - Review of Systems All other systems reviewed; all pertinent +/- noted in HPI/Subj - Medication Medications: Active Medications Generic Name Dose Route Start Last Admin Trade Name Freq PRN Reason Stop Dose Admin Hydrocodone Bitart/Acetaminophen 1 tab 12/22/18 11:36 12/26/18 15:32 [place] 5/325 PO 1 tab Q4H PRN Administration Moderate Pain (4-6) Albuterol/Ipratropium 3 ml 12/22/18 13:00 12/27/18 06:56 Duoneb NEB 3 ml [id number] COREY Administration Amiodarone HCl 200 mg 12/27/18 09:00 12/27/18 08:41 Cordarone PO 200 mg DAILY COREY Administration Aspirin 325 mg 12/24/18 09:00 12/27/18 08:41 Ecotrin PO 325 mg DAILY COREY Administration Atorvastatin Calcium 80 mg 12/23/18 21:00 12/26/18 20:40 Lipitor PO 80 mg HS COREY Administration Sodium Chloride 10 ml 12/25/18 21:00 12/27/18 08:41 Flush - Normal Saline IVF 10 ml Q12HR COREY Administration - Exam General Appearance: NAD Eye: PERRL Eye - other findings: EOMI ENT: no oropharyngeal lesions, moist mucosa Neck: supple, symmetric, no lymphadenopathy Heart: no murmur, no gallops, no rubs Heart - other findings: S1 and S2 present Respiratory: no wheezes, no rales, no ronchi Respiratory - other findings: Decreased breath sounds lower lung [place] Gastrointestinal: soft, non-tender, non-distended, normal bowel sounds, no guarding, no rigidity Extremities: no edema Skin: no lesions, no rashes Neurological: CN's grossly intact, no weakness, no focal deficits Musculoskeletal: generalized weakness Psychiatric: normal affect, A&O x 3 Hosp A/P (1) Status post coronary artery bypass graft Code(s): Z95.1 - PRESENCE OF AORTOCORONARY BYPASS GRAFT Status: Acute (2) Combined systolic and diastolic cardiac dysfunction Code(s): I51.89 - OTHER ILL-DEFINED HEART DISEASES Status: Acute (3) NSTEMI (non-ST elevated myocardial infarction) Code(s): I21.4 - NON-ST ELEVATION (NSTEMI) MYOCARDIAL INFARCTION Status: Acute (4) CAD (coronary artery disease) Code(s): I25.10 - ATHSCL HEART DISEASE OF [place] CORONARY ARTERY W/O ANG PCTRS Status: Chronic Qualifiers: Associated angina: with unstable angina (5) Dyslipidemia Code(s): E78.5 - HYPERLIPIDEMIA, UNSPECIFIED Status: Chronic (6) Hypertension Code(s): I10 - ESSENTIAL (PRIMARY) HYPERTENSION Status: Chronic Qualifiers: Hypertension type: essential hypertension Qualified Code(s): I10 - Essential (primary) hypertension (7) Noncompliance with medication regimen Code(s): Z91.14 - PATIENT'S OTHER NONCOMPLIANCE WITH MEDICATION REGIMEN Status : Chronic (8) Tobacco abuse Code(s): Z72.0 - TOBACCO USE Status: Chronic - Plan Plan: D/c planning Cardiology consult, recommendations appreciated CVT surgery consult, recommendations appreciated Pulmonology consult, recommendations appreciated Cardiomyopathy regimen being held as his BP would not tolerate No beta huber or Casper inh at this time per Cardiology/ CVT, holding for hypotension D/c meds: -Statin -ASA -amiodarone PO Replace electrolytes as needed Incentive spirometry Q1 hour while awake PT/OT GI and DVT PPX
[2018-12-27 11:27] VITALS: BP 116/57; TEMP 98.1
== END 2018-12-27 14:37 | disposition home or self-care (01) | DRG 234 ==
LOC: ERS 01:14 → ERHOLD 03:35 → 2NO 16:05 → CCU 12-11 08:24 → 2NO 12-12 16:30 → CCU 12-22 07:31 → 2NO 12-23 22:13
PROVIDERS: ADMIT Hospitalist; ATTEND Hospitalist
PROC: 4A023N7 Measurement of Cardiac Sampling and Pressure, Left Heart, Percutaneous Approach (ICD-10-PCS; 2018-12-14)
PROC: B2151ZZ Fluoroscopy of Left Heart using Low Osmolar Contrast (ICD-10-PCS; 2018-12-14)
PROC: B2111ZZ Fluoroscopy of Multiple Coronary Arteries using Low Osmolar Contrast (ICD-10-PCS; 2018-12-14)
PROC: B2181ZZ Fluoroscopy of Left Internal Mammary Bypass Graft using Low Osmolar Contrast (ICD-10-PCS; 2018-12-14)
PROC: 021209W Bypass Coronary Artery, Three Arteries from Aorta with Autologous Venous Tissue, Open Approach (ICD-10-PCS; principal; 2018-12-22)
PROC: 06BP4ZZ Excision of Right Saphenous Vein, Percutaneous Endoscopic Approach (ICD-10-PCS; 2018-12-22)
PROC: 5A1221Z Performance of Cardiac Output, Continuous (ICD-10-PCS; 2018-12-22)
DX: I21.4 Non-ST elevation (NSTEMI) myocardial infarction (principal); I42.9 Cardiomyopathy, unspecified; E87.1 Hypo-osmolality and hyponatremia; I47.1 Supraventricular tachycardia; E78.5 Hyperlipidemia, unspecified; J44.9 Chronic obstructive pulmonary disease, unspecified; I10 Essential (primary) hypertension; F17.210 Nicotine dependence, cigarettes, uncomplicated; E78.00 Pure hypercholesterolemia, unspecified; I95.9 Hypotension, unspecified; Z91.041 Radiographic dye allergy status; Z95.1 Presence of aortocoronary bypass graft; Z91.14 Patient's other noncompliance with medication regimen; Z79.82 Long term (current) use of aspirin; Z95.5 Presence of coronary angioplasty implant and graft; Z87.01 Personal history of pneumonia (recurrent); I25.110 Atherosclerotic heart disease of native coronary artery with unstable angina pectoris
CPT/HCPCS: 36415; 36416; 36430; 71045; 71046; 76936; 76942; 80048; 80053; 80076; 82550; 82553; 82805; 83690; 83735; 84443; 84484; 85014; 85018; 85025; 85049; 85610; 85730; 86850; 86900; 86901; 93005; 93010; 93306; 93459; 93798; 94002; 94060; 94150; 94640; 94727; 94729; 94760; 96372; 96374; 96376; 99152; 99153; C1769; J0282; J0670; J0690; J1100; J1642; J1644; J1650; J1720; J1815; J1885; J2001; J2150; J2250; J2270; J2405; J2440; J2704; J2720; J3010; J3370; J3475; J3480; J7050; J7070; J7512; J7620; P9045; Q9967; S0017; S0028

== ENCOUNTER 2019-01-04 17:50 | Emergency (ER) | payer BC ==
--- NOTE | 2019-01-04 18:13 | RAD ---
EXAM: Single view of the chest HISTORY: Intermittent shortness of breath COMPARISON: 12/23/2018 FINDINGS: Single view of the chest shows an enlarged but stable cardiomediastinal silhouette. The pa tient is status post sternotomy. There are small bilateral pleural effusions with adjacent atelectasis. The bones are unremarkable. IMPRESSION: Bilateral pleural effusions
[2019-01-04 18:16] LABS: #Basophils 0.1 thou/uL (0.0-0.2); #Eosinphils 0.3 thou/uL (0.0-0.7); #Lymphocytes 1.2 thou/uL (1.20-3.40); #Monocytes 0.8 thou/uL (0.11-0.59); #Neutrophils 6.5 thou/uL (1.40-6.50); %Basophils 0.7 % (0.0-1.0); %Lymphocytes 13.3 % (21.0-51.0); %Monocytes 8.9 % (0.0-10.0); %Neutrophils 74.2 % (42.0-75.0); Mean Corpuscular HGB CONC 33.4 g/dL (32.0-36.0); Mean Corpuscular Hemoglobin 32.1 pg (27.0-31.0); Mean Corpuscular Volume 96.1 fL (78.0-98.0); Mean Platelet Volume 6.6 fL (7.4-10.4); Platelet Count 430 thou/uL (130-400); Red Blood Cell (RBC) Count 4.06 mill/uL (4.70-6.10); White Blood Cell (WBC) Count 8.8 thou/uL (4.8-10.8)
[2019-01-04 18:39] LABS: ALT (SGPT) 28 U/L (8-55); AST (SGOT) 26 U/L (5-34); Albumin 4.4 g/dL (3.4-4.8); Alkaline Phosphatase 87 U/L (40-150); Anion Gap 15 mmol/L (10-20); BUN (Urea Nitrogen) 11 mg/dL (8.4-25.7); Bilirubin, Total 0.3 mg/dL (0.2-1.2); Calc. Creatinine Clearance 0 mL/min (70-130); Calcium 9.5 mg/dL (7.8-10.44); Carbon Dioxide 27 mmol/L (23-31); Chloride 101 mmol/L (98-107); Estimated GFR-MDRD Greater than 90; Globulin 2.9 g/dL (2.4-3.5); Glucose 90 mg/dL (80-115); Potassium 3.9 mmol/L (3.5-5.1); Protein, Total 7.3 g/dL (5.8-8.1); Sodium 139 mmol/L (136-145)
[2019-01-04 18:59] LABS: CKMB 1.7 ng/mL (0-6.6)
--- NOTE | 2019-01-08 13:36 | EKG ---
Test Reason : Blood Pressure : / mmHG Vent. Rate : 082 BPM Atrial Rate : 082 BPM P-R Int : 132 ms QRS Dur : 094 ms QT Int : 400 ms P-R-T Axes : 035 036 144 degrees QTc Int : 467 ms Normal sinus rhythm Septal infarct , age undetermined Abnormal ECG Improved from 11/2018 Confirmed by SHANNEN MITCHELL ([id number]), telegraph editor SANTI MEHTA ([id number]) on 01/08/2019 1:35:50 PM Referred By: Confirmed By:SHANNEN MITCHELL
== END 2019-01-04 19:58 | disposition home or self-care (01) ==
LOC: ERS 17:50
DX: R06.02 Shortness of breath (principal); I10 Essential (primary) hypertension; F17.210 Nicotine dependence, cigarettes, uncomplicated; Z79.82 Long term (current) use of aspirin; Z79.899 Other long term (current) drug therapy
CPT/HCPCS: 71045; 80053; 82553; 83880; 84484; 85025; 93005

== ENCOUNTER 2019-01-12 16:11 | Outpatient (CLI) | payer BC ==
--- NOTE | 2019-01-12 16:31 | RAD ---
TWO VIEWS OF THE CHEST: 01/12/19 COMPARISON: 12/26/18 HISTORY: COPD. FINDINGS: Two views of the chest show an enlarged but stable cardiomediastinal silhouette. The patient is statu s post sternotomy. There is a small bilateral pleural effusions with adjacent atelectasis. No change has occurred compared to the prior exam. IMPRESSION: Stable bilateral pleural effusions. POS: TPC
== END 2019-01-12 16:12 | disposition home or self-care (01) ==
LOC: BICRAD 16:11
PROVIDERS: ATTEND Nurse Practitioner Family
DX: J44.9 Chronic obstructive pulmonary disease, unspecified (principal); J90 Pleural effusion, not elsewhere classified
CPT/HCPCS: 71046

== ENCOUNTER 2020-05-20 06:04 | Inpatient (IN) | payer BC ==
[2020-05-20] MEDS ORDERED: Adenosine 6 MG/2 ML VIAL ONE (06:15)
[2020-05-20] MEDS ORDERED: Diltiazem 125 MG/25 ML ONE (06:27)
[2020-05-20 06:58] LABS: #Basophils 0.1 thou/uL (0.0-0.2); #Eosinphils 0.2 thou/uL (0.0-0.7); #Lymphocytes 1.8 thou/uL (1.20-3.40); #Monocytes 0.8 thou/uL (0.11-0.59); #Neutrophils 10.6 thou/uL (1.40-6.50); %Basophils 0.9 % (0.0-1.0); %Eosinophils 1.7 % (0.0-10.0); %Lymphocytes 13.1 % (21.0-51.0); %Monocytes 5.8 % (0.0-10.0); %Neutrophils 78.6 % (42.0-75.0); Hemoglobin 15.5 g/dL (14.0-18.0); Mean Corpuscular HGB CONC 33.7 g/dL (32.0-36.0); Mean Corpuscular Hemoglobin 32.1 pg (27.0-31.0); Mean Corpuscular Volume 95.5 fL (78.0-98.0); Mean Platelet Volume 8.9 fL (7.4-10.4); Platelet Count 208 thou/uL (130-400); Red Blood Cell (RBC) Count 4.84 mill/uL (4.70-6.10); White Blood Cell (WBC) Count 13.5 thou/uL (4.8-10.8)
[2020-05-20 06:59] LABS: PTT 24.6 sec (22.9-36.1); Prothrombin Time 13.2 sec (12.0-14.7)
[2020-05-20 07:00] LABS: D-Dimer Test 0.41 *mcg/mL (0.27-0.43)
[2020-05-20] MEDS ORDERED: Amiodarone 150 MG, Admixture Fee 1 EACH in Dextrose 5% in Water 100 ML IVPB SCH (07:00)
[2020-05-20 07:26] LABS: ALT (SGPT) 29 U/L (8-55); AST (SGOT) 63 U/L (5-34); Albumin 4.1 g/dL (3.4-4.8); Alkaline Phosphatase 133 U/L (40-110); Anion Gap 13 mmol/L (10-20); BUN (Urea Nitrogen) 12 mg/dL (8.4-25.7); Bilirubin, Total 0.5 mg/dL (0.2-1.2); Calc. Creatinine Clearance 0 mL/min (70-130); Calcium 8.2 mg/dL (7.8-10.44); Carbon Dioxide 24 mmol/L (23-31); Chloride 106 mmol/L (98-107); Globulin 2.8 g/dL (2.4-3.5); Glucose 181 mg/dL (80-115); Magnesium 2.9 mg/dL (1.6-2.6); Protein, Total 6.9 g/dL (5.8-8.1); Sodium 139 mmol/L (136-145)
[2020-05-20 07:34] LABS: CKMB 2.1 ng/mL (0-6.6)
--- NOTE | 2020-05-20 07:39 | RAD ---
RADIOGRAPH CHEST 1 VIEW: DATE: 05/20/2020 TIME: 6:48 AM HISTORY: 64-year-old male with dyspnea COMPARISON: 01/12/2019 FINDINGS: The previously demonstrated bilateral pleural effusions are much smaller or resolved. There is a new finding of diffuse bilateral reticulonodular interstitial infiltrates. No cardiomegaly or pneumothorax. Minimal blunting of left lateral costophrenic angle. No pneumothorax . Sternal wires. IMPRESSION: Diffuse reticulonodular interstitial infiltrates. Uncertain whether acute or chronic, but they are ne w since 01/12/2019.
[2020-05-20] MEDS ORDERED: diphenhydrAMINE 50 MG/ML VIAL ONE (08:15)
[2020-05-20] MEDS ORDERED: Aspirin Chewable 81 MG TAB ONE (08:15)
[2020-05-20] MEDS ORDERED: methylPREDNISolone Sod Succ/PF 125 MG/2 ML VIAL ONE (08:15)
[2020-05-20] MEDS ORDERED: Famotidine/PF 20 mg/2ml Vial ONE (08:15)
--- NOTE | 2020-05-20 10:03 | CT ---
CT ANGIOGRAM THORAX WITH CONTRAST: (CTA pulmonary angiogram) DATE: 05/20/2020 HISTORY: 64 year old male with hypoxia and tachycardia with dyspnea COMPARISON: Standard chest CT with contrast of 05/24/2014 TECHNIQUE: IV injection of iodinated contrast. Scan acquisition timing attempted to coincide with iodinated contrast bolus reaching maximal density in pulmonary arteries. 3-D MIP reconstructions. FINDINGS: New small bilateral pleural effusions. New finding of mild cardiomegaly. New small pericardial effusion. New finding of mild thickening of pulmonary septa, greatest throughout left upper lobe, and milder in right upper lobe, with mild involvement of the bases of bilateral lower lobes. The previously demonstrated large left lower lobe superior segment cavitary lesion, has resolved. New finding of small airspace opacities at the posterior bases of the bilateral lower lobes abutting the pleural effusions, probably representing passive atelectasis, less likely to represent pneumonia. Groundglass densities probably representing pulmonary interstitial edema at base of left l ower lobe. No pneumothorax. New finding of lentiform 3 x 4 x 6 mm noncalcified pulmonary nodule in left upper lobe anterior segme nt with configuration suggestive of pulmonary lymph node. A few other faint small pulmonary nodular densities elsewhere in left upper lobe. For example, another one located more inferiorly in anterior segment or lingula measuring 8 x 5 x 3 mm. Excellent contrast opacification of pulmonary arteries. No thrombus in pulmonary arteries including d istal branches. Not enough contrast in the thoracic aorta to evaluate for dissection. Ectasia of ascending aorta. Extensive atherosclerotic calcification of thoracic aorta. Heavy calcification and/or stents at left main, LAD, RCA, and LCx. Sternotomy wires. IMPRESSION: 1.) No pulmonary thromboembolism. 2.) New small bilateral pleural effusions, new mild cardiomegaly, new small pericardial effusion, and new thickening of interlobular septa which could represent mild interstitial edema; may represent mild congestive heart failure or fluid volume overload. 3) alternatively, the thickening of septa can also be seen with lymphangitic carcinomatosis. 4) new scattered small noncalcified left upper lobe pulmonary nodules. They may represent pulmonary l ymph nodes. However follow-up is recommended in 3-4 months. 5) ICD-10: I 25.84: Coronary atherosclerosis due to calcified coronary lesion.
[2020-05-20] MEDS ORDERED: Iopamidol-370 76% 500 ML 1 ML ONE (10:08)
[2020-05-20 10:48] VITALS: BMI 22.6
[2020-05-20 10:49] LABS: Troponin I 0.393 ng/mL (< 0.028)
[2020-05-20] MEDS ORDERED: Furosemide 40 MG/4 ML VIAL SLOW IVP SCH (11:00)
--- NOTE | 2020-05-20 11:59 | PDOC.HHP ---
Hospitalist HPI shortness of breath History of Present Illness: This is a 64 year old male with past medical history of CAD s/p CABG, afib, hypertension, who presented to the ER with shortness of breath that started this morning when he was sleeping. He took a nebulizer for his COPD, but it provided him no relief. He did not try to ambulate because he called 911 right away. 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 He denies chest pain, diaphoresis or lightheadedness. He denies orthopnea. He denies recent travel history. He denies leg swelling. He denies fevers or chills. He has been having a productive cough of white phlegm for the past one week. He denies exposure to any sick contacts. The patient smokes 2 packs per day and has tried nicotine patch with no relief. He has had a history of afib for the past two years. He feels palpitations everyday, but has never been prescribed medicine for his atrial fibrillation or a blood thinner. ED Course: When the patient presented to the ER, he had a blood pressure of 175/128, heart rate of 200. Tele strip showed SVT. He was given adenosine 6 mg, his heart rate improved transiently then went back up again. He was given 12 mg adenosine with transient improvement and then subsequent recurrence. He was then given 5 mg of IV diltiazem with improvement. The ER doctor contacted Dr. Ray who recommended loading with amiodarone and placing on an amiodarone drip. The patient received aspirin 324 mg, 125 mg IV steroids. Chest X ray showed diffuse reticulonodular densities. CTA showed no PE, but bilateral pleural effusions. The patient states he feels much better after being placed on oxygen. Allergies/Adverse Reactions: Allergy/AdvReac Type Severity Reaction Status Date / Time Iodinated Contrast Media Allergy Mild Verified 12/10/18 16:28 Home Medications: Medication Instructions Recorded Confirmed Type Aspirin [Ecotrin Regular Strength] 325 mg PO DAILY #120 tab 12/27/18 05/20/20 Rx Past History: PMHx: CAD s/p CABG x2 Hypertension PSHx: CABG in 2002 and 2018 7 stents placed in 2009 FHx: Dad had heart disease Social: The patient is an military equipment specialist. He smokes 2 packs daily, drinks 1-2 beers daily. He denies cocaine, marijuana or heroin use. Hospitalist HPI ROS Constitutional: denies: fever, chills Eyes: denies: pain, vision change ENT: denies: ear pain, ear discharge Respiratory: reports: cough (productive ofr past one week) Cardiovascular: reports: palpitations. denies: chest pain, orthopnea, paroxysmal noc. dyspnea Gastrointestinal: denies: nausea, vomiting, abdominal pain, diarrhea Genitourinary: denies: dysuria, frequency Musculoskeletal: denies: neck pain, shoulder pain, arm pain Skin: denies: rash, lesions Neurological: denies: weakness, numbness Hospitalist Exam Vitals: Vital Signs (12 hours) Temp Pulse Resp BP Pulse Ox 05/20/20 10:47 98.5 F 110 H 18 156/92 H 96 Weight Weight 167 lb General Appearance: NAD, awake alert Eye: PERRL, anicteric sclera ENT: normocephalic atraumatic, no oropharyngeal lesions Neck: no JVD Heart: no murmur, no gallops, no rubs Heart - other findings: irregularly irregular Respiratory: no wheezes, no rales, no ronchi Respiratory - other findings: bilateral crackles with some wheezing Gastrointestinal: soft, non-tender, non-distended, normal bowel sounds Extremities: no cyanosis, no clubbing, no edema Skin: normal turgor, no lesions, no rashes Neurological: cranial nerve grossly intact, normal sensation to touch, no weakness Musculoskeletal: normal tone, normal strength, no muscle wasting Psychiatric: normal affect, normal behavior, A&O x 3 Hospitalist Results Result Diagrams: 05/20/20 06:25 05/20/20 06:25 Lab results: Laboratory Last Values WBC 13.5 thou/uL (4.8-10.8) H 05/20/20 06:25 RBC 4.84 mill/uL (4.70-6.10) 05/20/20 06:25 Hgb 15.5 g/dL (14.0-18.0) 05/20/20 06:25 Hct 46.2 % (42.0-52.0) 05/20/20 06:25 MCV 95.5 fL (78.0-98.0) 05/20/20 06:25 MCH 32.1 pg (27.0-31.0) H 05/20/20 06:25 MCHC 33.7 g/dL (32.0-36.0) 05/20/20 06:25 RDW 13.0 % (11.5-14.5) 05/20/20 06:25 Plt Count 208 thou/uL (130-400) 05/20/20 06:25 MPV 8.9 fL (7.4-10.4) 05/20/20 06:25 Neutrophils % 78.6 % (42.0-75.0) H 05/20/20 06:25 Lymphocytes % 13.1 % (21.0-51.0) L 05/20/20 06:25 Monocytes % 5.8 % (0.0-10.0) 05/20/20 06:25 Eosinophils % 1.7 % (0.0-10.0) 05/20/20 06:25 Basophils % 0.9 % (0.0-1.0) 05/20/20 06:25 Neutrophils # 10.6 thou/uL (1.40-6.50) H 05/20/20 06:25 Lymphocytes # 1.8 thou/uL (1.20-3.40) 05/20/20 06:25 Monocytes # 0.8 thou/uL (0.11-0.59) H 05/20/20 06:25 Eosinophils # 0.2 thou/uL (0.0-0.7) 05/20/20 06:25 Basophils # 0.1 thou/uL (0.0-0.2) 05/20/20 06:25 PT 13.2 sec (12.0-14.7) 05/20/20 06:25 INR 1.0 05/20/20 06:25 APTT 24.6 sec (22.9-36.1) 05/20/20 06:25 D-Dimer 0.41 *mcg/mL (0.27-0.43) 05/20/20 06:25 Sodium 139 mmol/L (136-145) 05/20/20 06:25 Potassium 4.0 mmol/L (3.5-5.1) 05/20/20 06:25 Chloride 106 mmol/L (98-107) 05/20/20 06:25 Carbon Dioxide 24 mmol/L (23-31) 05/20/20 06:25 Anion Gap 13 mmol/L (10-20) 05/20/20 06:25 BUN 12 mg/dL (8.4-25.7) 05/20/20 06:25 Creatinine 1.02 mg/dL (0.7-1.3) 05/20/20 06:25 Estimated GFR (MDRD) 74 05/20/20 06:25 Glucose 181 mg/dL (80-115) H 05/20/20 06:25 Calcium 8.2 mg/dL (7.8-10.44) 05/20/20 06:25 Magnesium 2.9 mg/dL (1.6-2.6) H 05/20/20 06:25 Total Bilirubin 0.5 mg/dL (0.2-1.2) 05/20/20 06:25 AST 63 U/L (5-34) H 05/20/20 06:25 ALT 29 U/L (8-55) 05/20/20 06:25 Alkaline Phosphatase 133 U/L (40-110) H 05/20/20 06:25 CK-MB (CK-2) 2.1 ng/mL (0-6.6) 05/20/20 06:25 Troponin I 0.393 ng/mL (< 0.028) H* 05/20/20 10:07 B-Natriuretic Peptide 1824.6 pg/mL (0-100) H 05/20/20 06:25 Serum Total Protein 6.9 g/dL (5.8-8.1) 05/20/20 06:25 Albumin 4.1 g/dL (3.4-4.8) 05/20/20 06:25 Globulin 2.8 g/dL (2.4-3.5) 05/20/20 06:25 Albumin/Globulin Ratio 1.5 g/dL (1.2-2.2) 05/20/20 06:25 Additional comment: EKG: undetermined rhythm, St and T wave abnormality consider lateral ischemia. T wave inversions V4--V6 Hospitalist H&P A/P Plan: Chest X ray: diffuse reticulonodular disease CTA: bilateral pleural effusions, new mild cardiomegaly, new small pericardial effusion, new thickening of interlobular septa which could represent mild interstitial edema. Thickening of septa can be seen with lymphangitic carcinomtaosis. New scattered small noncalcified left upper lobe pulmonary nodules. Follow up in 3-4 months recommended. Coronary atherosclerosis This is a 64 year old male patient with past medical history of CAD s/p CABG who presented to the ER with shortness of breath, has increasing troponins and CHF on CTA #NSTEMI #Acute (systolic vs diastolic) heart failure #Acute COPD exacerbation - the patient has troponins that were 0.6 that went up to 0.393. He denies chest pain, but did have shortness of breath and has had two bypasses and is an active 2 pack daily smoker so concerned for NSTEMI. S/p aspirin in the ER. -Will consult cardiology and continue to trend troponins. Will obtain an ECHO - will start anticoagulation with lovenox - CTA shows no PE but bilateral pleural effusions. Ordered lasix 40 mg IV x 1 - patient did have mild wheezing, he is s/p steroids in the ER. Will continue prednisone 40 mg . Will add doxycycline, prn duonebs and prn albuterol. Start dulera bid Tobacco abuse - will order nicotine patch Hypertension - BP 145. Will give lasix 40 mg and reassess. ECHO is pending - he is not on meds at home Leukocytosis - WBC 13.5, likely reactive. COVID negative two days ago at [facility]. Repeat COVID pending here. Will trend DVT prophylaxis: lovenox Code status: full code
[2020-05-20] MEDS ORDERED: predniSONE 20 MG TAB PO SCH (12:15)
[2020-05-20] MEDS ORDERED: Enoxaparin Sodium 80 MG/0.8 ML SYRINGE SC SCH (12:15)
[2020-05-20] MEDS ORDERED: Albuterol Sulfate 2.5 mg/3 ml Neb EZPAP PRN (12:21)
[2020-05-20 13:00] LABS: Troponin I 0.529 ng/mL (< 0.028)
--- NOTE | 2020-05-20 13:06 | CON ---
DATE OF CONSULTATION: 05/20/2020 REASON FOR CONSULTATION: SVT and non-STEMI. PRIMARY PLUMBER PIPE FITTING: Thea Casey MD HISTORY OF PRESENT ILLNESS: Mr. Gillespie is a pleasant 64-year-old white gentleman, who comes to the hospital for palpitations and shortness of breath. He was seen in the ER and was found to have SVT at about 200 beats per minute. He was given one dose of adenosine 6 mg, and he converted briefly and then went back to SVT again, but at 180, was given another 12 of adenosine converted back and then went back into another SVT at about 180. Eventually, he was given diltiazem. His blood pressure dropped, but his heart rate went down to the 140s. I was called about this and I recommended to start an amiodarone drip with a bolus, and he has since converted to sinus rhythm with PVC's and feels better. Mr. Gillespie's shortness of breath has significantly improved; however, he continues to feel that he cannot lay flat on the bed if he needed to. He has a history of an ischemic cardiomyopathy with history of coronary artery bypass grafting, the first time in 2002 and the second time in [address] Muro. His most recent echocardiogram in 2019 showed an EF of 50% to 55%. He had a CT of the chest that showed no pulmonary embolism, bilateral pleural effusions with cardiomegaly and a small pericardial effusion, noncalcified left upper lobe pulmonary nodules. He continues to smoke about 2 packs a day, but he states that he will never smoke ever again after what he felt today. PAST MEDICAL HISTORY: 1. Hyperlipidemia. 2. Hypertension. 3. COPD. 4. Medication noncompliance. 5. Coronary artery disease, status post CABG in 2002 and a redo CABG in 2019. 6. Multiple stents placed in 2009. FAMILY HISTORY: Noncontributory. SOCIAL HISTORY: Smokes 2 packs a day for many years now. Occasional alcohol use. No drug use. He works in the [employer] and [email or web address] business. OUTPATIENT MEDICATIONS: 1. Aspirin 325 a day. 2. Inhaler. 3. He takes ipratropium at home. Otherwise, no other medications. ALLERGIES: IODINATED DYE, AUTOMATED CONTRAST. PHYSICAL EXAMINATION: VITAL SIGNS: Temperature 98.5, pulse 110, respiratory rate 18, sat are 96% on 2 L nasal cannula, blood pressure 156/92. GENERAL: Awake, alert, and oriented x3 in mild distress but better. HEENT: Normocephalic and atraumatic. NECK: Supple. LUNGS: Have reduced breath sounds with prolonged expiratory phase and expiratory wheezes. CARDIOVASCULAR: S1 and S2. There is a grade 3/6 systolic murmur at the right upper sternal border. ABDOMEN: Soft, positive bowel sounds. EXTREMITIES: 1+ edema. SKIN: Warm and dry. LABORATORY DATA: Laboratory work was reviewed. CBC with a white count of 13, hemoglobin of 15, hematocrit of 46, platelet count of 208. Coags were reviewed. Chemistries were reviewed. Sodium is 139, potassium was 4.0, chloride of 106, carbon dioxide of 24, anion gap of 13, BUN of 12, creatinine 1.02, GFR of 74, glucose of 181, calcium 8.2, magnesium is low at 2.9, total bilirubin 0.5, AST 63, ALT 29, alkaline phosphatase 133. CK-MB was 2.1 with a troponin of 0.06 and the next troponin was 0.39, positive range. BNP was 1824 and albumin of 4.1. Chest x-ray showed diffuse interstitial infiltrates, likely from CHF. CT of the chest showed no evidence of pulmonary embolism. There are bilateral pleural effusions with cardiomegaly and a small pericardial effusion, interstitial edema. There are noncalcified left upper lobe pulmonary nodules, thought to be lymph nodes. ASSESSMENT AND PLAN: 1. Acute on chronic systolic versus diastolic heart failure. 2. Nfe-[id number] myocardial infarction. 3. Supraventricular tachycardia. 4. Nonsustained ventricular tachycardia, on monitor currently. 5. Tobacco use. 6. Coronary artery disease, severe. 7. Noncompliance. Last time he was seen in the office by Dr. Casey was in 2019 a month after his bypass and has not been seen since then. PLAN: 1. IV diuresis. 2. Would treat as a COPD exacerbation as well. 3. Continue amiodarone drip for now. 4. EP consultation. 5. Most likely, he will need a repeat catheterization in the next few days; however, at this point, he is unable to lie flat. 6. He will need pre-treatment with prednisone for his iodine allergy if we were to do a catheterization, and I expect him to get some steroids for his COPD as well. 7. Tobacco cessation counseling. He states that he is done with smoking, and he wants to never touch those things again. Thank you for letting us to participate in the care of your patient. Dr. Casey, his primary i&c tech, will follow up in the morning. Job ID: [id number] MTDDulce Maria
[2020-05-20 15:36] LABS: SARS-CoV-2 PCR by NAA Not Detected (NotDetected)
[2020-05-20] MEDS: Amiodarone 450 MG, Admixture Fee 1 EACH in Dextrose 5% in Water 250 ML IVPB SCH (16:32)
[2020-05-20] MEDS: Furosemide 40 MG/4 ML VIAL SLOW IVP SCH (16:32)
[2020-05-20 16:47] LABS: Troponin I 0.568 ng/mL (< 0.028)
[2020-05-20] MEDS: Mometasone 200 MCG/Formoterol 5 MCG 120 PUFF INHALER INH SCH (18:33)
[2020-05-20] MEDS: Doxycycline 100 MG CAP PO SCH (21:32)
[2020-05-20] MEDS: Atorvastatin Calcium 40 MG TAB PO SCH (21:32)
[2020-05-20] MEDS: predniSONE 20 MG TAB PO SCH (21:32)
[2020-05-20] MEDS: Enoxaparin Sodium 80 MG/0.8 ML SYRINGE SC SCH (21:33)
[2020-05-21 04:41] LABS: Hemoglobin 14.8 g/dL (14.0-18.0); Mean Corpuscular HGB CONC 33.5 g/dL (32.0-36.0); Mean Corpuscular Hemoglobin 32.3 pg (27.0-31.0); Mean Corpuscular Volume 96.2 fL (78.0-98.0); Mean Platelet Volume 9.2 fL (7.4-10.4); Platelet Count 155 thou/uL (130-400); RBC Distribution Width 13.1 % (11.5-14.5); Red Blood Cell (RBC) Count 4.58 mill/uL (4.70-6.10); White Blood Cell (WBC) Count 10.9 thou/uL (4.8-10.8)
[2020-05-21 05:09] LABS: Critical Call Chem Troponin I RESULT DECREASING
[2020-05-21 05:28] LABS: CKMB 5.7 ng/mL (0-6.6)
[2020-05-21] MEDS: Furosemide 40 MG/4 ML VIAL SLOW IVP SCH ×2 (06:16→17:05)
[2020-05-21] MEDS ORDERED: predniSONE 20 MG TAB PO SCH ×3 (08:00→10:15)
[2020-05-21] MEDS: Amiodarone 450 MG, Admixture Fee 1 EACH in Dextrose 5% in Water 250 ML IVPB SCH ×2 (08:04→23:12)
[2020-05-21] MEDS: Mometasone 200 MCG/Formoterol 5 MCG 120 PUFF INHALER INH SCH ×2 (08:50→18:43)
[2020-05-21] MEDS: Doxycycline 100 MG CAP PO SCH ×2 (09:06→21:05)
[2020-05-21] MEDS: Aspirin 81 mg Enteric Coated Tablet PO SCH (09:06)
[2020-05-21] MEDS: Enoxaparin Sodium 80 MG/0.8 ML SYRINGE SC SCH ×2 (09:07→21:06)
[2020-05-21] MEDS: predniSONE 20 MG TAB PO SCH ×2 (09:09→21:05)
[2020-05-21 09:29] LABS: ALT (SGPT) 22 U/L (8-55); AST (SGOT) 26 U/L (5-34); Albumin 4.1 g/dL (3.4-4.8); Alkaline Phosphatase 106 U/L (40-110); Anion Gap 20 mmol/L (10-20); BUN (Urea Nitrogen) 13 mg/dL (8.4-25.7); Bilirubin, Total 0.7 mg/dL (0.2-1.2); Calc. Creatinine Clearance 89 mL/min (70-130); Calcium 8.6 mg/dL (7.8-10.44); Carbon Dioxide 19 mmol/L (23-31); Chloride 103 mmol/L (98-107); Globulin 2.9 g/dL (2.4-3.5); Glucose 107 mg/dL (80-115); Magnesium 2.3 mg/dL (1.6-2.6); Potassium 4.2 mmol/L (3.5-5.1); Sodium 138 mmol/L (136-145)
--- NOTE | 2020-05-21 10:20 | PRG ---
DATE OF SERVICE: SUBJECTIVE: Mr. Gillespie says he is breathing much better, feels better. He is sitting up on the side of the bed. No chest pain or pressure. OBJECTIVE: VITAL SIGNS: Blood pressure 117/68, earlier was 111/65. Pulse is in the 80s, sinus with PVCs, occasional nonsustained ventricular tachycardia. ABDOMEN: Soft, nontender. EXTREMITIES: There is no edema. Peak troponin was 0.568 that was probably demand ischemia, type 2 infarction due to tachycardia with underlying coronary disease. BNP is actually higher today, is 2482. ASSESSMENT: 1. Congestive heart failure systolic acute on chronic, improving. 2. Chronic obstructive pulmonary disease, seems to be improved. His lungs are clear now. 3. Previous redo bypass surgery. 4. Supraventricular tachycardia with nonsustained ventricular tachycardia. PLAN: 1. Continue diuretics. 2. Add Entresto. 3. Ultimately beta blockers once more compensated. 4. Tentatively planned catheterization on Thursday. We will get Electrophysiology consultation. We will probably need EP study hopefully for an ablation of SVT. Job ID: [id number]
--- NOTE | 2020-05-21 13:48 | CON ---
DATE OF CONSULTATION: 05/21/2020 Dictated by Arelis Garcia, nurse practitioner, as a scribe for Dr. Uriel Foster. DIRECTOR OF THERAPY SERVICES: Thea Casey MD REASON FOR CONSULTATION: SVT, nonsustained VT, and arrhythmia management. HISTORY OF PRESENT ILLNESS: I am seeing Mr. Gillespie as an electrophysiology consultation at our [facility] floor as an inpatient. His problem list is as follows: 1. Supraventricular tachycardia. a. Brief conversion on adenosine 6 mg and 12 mg, sinus rhythm restored with amiodarone bolus and drip. b. Symptomatic with shortness of breath and chest pain. 2. Coronary artery disease with [id number] [place] this admission. a. Greater than 8 stents in the past. b. Coronary artery bypass grafting 1st in 2002 with redo in 2018, SHARMA to LAD, SVG to OM, SVG to PDA, and SVG to posterolateral branch. 3. Nonsustained ventricular tachycardia, PVCs initially seen post redo bypass in 12/2018, discharged on amiodarone. 4. Ischemic cardiomyopathy. a. On 07/28/2017, echocardiogram; LVEF 45% to 50%, PVCs, LA normal size, normal mitral valve, normal aortic valve, trace TR. b. On 12/11/2018, LVEF 50% to 55%, left atrium bpar-[id number] dilation, moderate MR, mild TR, diastolic dysfunction noted. c. On 05/19/2020, echocardiogram; LVEF 20% to 25%, grade 2/3 diastolic dysfunction, mild dilated left atrium, mitral annular calcification, mild MR, mild TR, moderate pleural effusion, LA dimension 4.81 cm. 5. COPD. 6. Hypertension. 7. Hyperlipidemia. 8. Long-term tobacco habituation, 2 packs per day. 9. Medication noncompliance with poor followup. REVIEW OF SYMPTOMS: Currently, Mr. Gillespie is feeling well. He denies any active heart racing, palpitations, chest pain, pressure, syncope, near syncope, stroke, stroke-like symptoms, orthopnea, or dyspnea on exertion. A 12-point review of systems is negative except that listed below in the subjective/HPI portion. PAST MEDICAL HISTORY: As above. FAMILY HISTORY: Noncontributory. 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 SUBJECTIVE/HISTORY OF PRESENT ILLNESS: Mr. Gillespie is a 64-year-old male with an extensive cardiac history of severe coronary artery disease with 2 prior bypasses most recently in 2019 and multiple stents most recently in 2009. He came to the hospital for palpitations with severe shortness of breath and some chest discomfort. He was found to have SVT at 200 beats per minute, given adenosine 6 mg, which briefly restored sinus rhythm before returning to SVT at 180 beats per minute. An additional 12 mg of adenosine had the same results. IV diltiazem was given, but his blood pressure dropped with minimal heart rate control. An amiodarone bolus and drip were then given and he converted to sinus rhythm with PVCs. With uatsdin of sinus rhythm, his shortness of breath has improved and he was admitted to Telemetry for further monitoring. CT of the chest showed bilateral pleural effusions with cardiomegaly and a small pericardial effusion in addition to noncalcified left upper lobe pulmonary nodules. ALLERGIES: IODINE DYE AND CONTRAST. OUTPATIENT MEDICATIONS: 1. Aspirin 325 mg daily. 2. Ipratropium inhaler. OBJECTIVE: VITAL SIGNS: Temperature 98.2, pulse 80, blood pressure 117/68, respirations 16, and oxygen 97% on 1 L via nasal cannula. GENERAL: The patient is alert and oriented. His speech is clear. His affect is appropriate. He is in no apparent distress at the time of exam. NECK: Supple without jugular venous distention. There is no lymphadenopathy. His trachea is midline. LUNGS: Diminished in the bases with fine bibasilar crackles and expiratory wheezes. Respirations even and unlabored. CARDIAC: Heart rate is regularly regular. PMI palpable. [place] S1 and S2. Heart rate slightly irregular with ectopy. Grade 3/6 systolic murmur at the right upper sternal border. ABDOMEN: Soft and nontender without palpable masses. Exam is benign. Hepatojugular reflux is negative. EXTREMITIES: Warm and dry to touch. Well perfused without clubbing or cyanosis. There is trace edema in bilateral lower extremities. NEUROLOGIC: Grossly intact. Nonfocal. Gait was not assessed. He was sitting on the edge of bed, having just returned from the shower. LABORATORY DATA: Hematology: WBC 10.9, platelet count 155, and hemoglobin 14.8. Chemistry: Potassium 4.2, creatinine 0.91, and magnesium 2.3. Troponins peaked at 0.568. BNP this morning is 2482, 1824 on admission. COVID test negative on 05/20. DIAGNOSTIC STUDIES: Telemetry and EKGs initially show SVT that is suspicious for AVNRT and was briefly responsive to adenosine, possibly rapid atrial tachycardia/flutter given his history of bypass. Subsequent EKG shows sinus rhythm with frequent ventricular ectopy as well as nonsustained VT runs, mostly monomorphic PVCs with occasional couplets. IMPRESSION AND PLAN: Mr. Gillespie is a 64-year-old man with an extensive cardiac history with severe coronary artery disease and ischemic cardiomyopathy, whom we see has a recent significant drop in his ejection fraction, now measuring 20% to 25%, previously preserved at 50% to 55% in 2019. His rhythm has stabilized with amiodarone bolus and a continuous IV drip. Given his qie-QD-[id number] myocardial infarction, left heart catheterization is planned for 2 days from now, allowing time for optimization of his congestive heart failure. We discussed treatment options for his arrhythmias. I would entertain the possibility of an EP study and ablation for supraventricular tachycardia, which is possibly atrioventricular reentrant tachycardia versus a rapid flutter. He does have a history of nonsustained ventricular tachycardia and premature ventricular contractions following his most recent bypass in 2018 and amiodarone was prescribed at that time. It is unclear when this was stopped and there is certainly a degree of medical noncompliance involved here. For now, I would continue with him on an amiodarone drip, allowing him to compensate from his recent events. Could consider EP study Thursday or possibly Thursday. We will continue to follow. Thank you for allowing me to participate in the care of this patient. Job ID: [id number]
--- NOTE | 2020-05-21 16:11 | PDOC.HOSPP ---
- Subjective Encounter Date: 05/21/20 Encounter Time: 08:30 Subjective: Seen for follow-up regarding non-STEMI. [place] chest pain or shortness of breath. - Objective Vital Signs & Weight: Vital Signs (12 hours) Temp Pulse Resp BP Pulse Ox 05/21/20 12:30 98.1 F 84 15 133/59 L 98 05/21/20 08:51 97 05/21/20 08:50 40 L 16 97 05/21/20 07:30 95 Weight Weight 167 lb I&O: 05/20/20 05/21/20 05/22/20 06:59 06:59 06:59 Intake Total 1735 Output Total 1999 Balance -265 Result Diagrams: 05/21/20 04:10 05/21/20 04:10 Additional Labs: Labs and MAR reviewed by me EKG Reviewed by me: Yes (Telemetry shows normal sinus rhythm) Hospitalist ROS - Review of Systems Cardiovascular: denies: chest pain, palpitations, orthopnea, paroxysmal noc. dyspnea, edema, light headedness Gastrointestinal: denies: nausea, vomiting, abdominal pain, diarrhea, co nstipation, melena, hematochezia - Medication Medications: Active Medications Generic Name Dose Route Start Last Admin Trade Name Freq PRN Reason Stop Dose Admin Aspirin 81 mg 05/21/20 09:00 05/21/20 09:06 Aspirin 81 Mg Enteric Coated Tablet PO 81 mg DAILY COREY Administration Atorvastatin Calcium 40 mg 05/20/20 21:00 05/20/20 21:32 Atorvastatin Calcium 40 Mg Tab PO 40 mg HS COREY Administration Doxycycline Hyclate 100 mg 05/20/20 21:00 05/21/20 09:06 Doxycycline 100 Mg Cap PO 100 mg BID COREY Administration Enoxaparin Sodium 75 mg 05/20/20 21:00 05/21/20 09:07 Enoxaparin Sodium 80 Mg/0.8 Ml Syringe SC 75 mg Q12HR COREY Administration Furosemide 40 mg 05/20/20 14:00 05/21/20 06:16 Furosemide 40 Mg/4 Ml Vial SLOW IVP 40 mg 0600,1400 COREY Administration Amiodarone HCl 450 mg/ 259 mls @ 0 mls/hr 05/20/20 06:45 05/21/20 08:04 Miscellaneous Medication 1 IVPB 259 mls each/ Dextrose/Water INF COREY Administration Protocol As Directed Mometasone Furoate/Formoterol Fumar 1 puff 05/20/20 18:30 05/21/20 08:50 Mometasone 200 Mcg/Formoterol 5 Mcg 120 Puff Inhaler INH 1 puff BID-RT COREY Administration Hospitalist Exam Vitals: Vital Signs (12 hours) Temp Pulse Resp BP Pulse Ox 05/21/20 12:30 98.1 F 84 15 133/59 L 98 05/21/20 08:51 97 05/21/20 08:50 40 L 16 97 05/21/20 07:30 95 Weight Weight 167 lb General Appearance: awake alert Eye: anicteric sclera ENT: normocephalic atraumatic Neck: supple Heart: RRR Respiratory: CTAB Gastrointestinal: soft Skin: no rashes Psychiatric: normal affect, normal behavior Hosp A/P - Plan #NSTEMI #Acute on chronic systolic and diastolic combined heart failure, NYHA class III- -continue IV diuretics. For coronary angiography on Thursday. Patient clinically improving. Cardiology following. #Acute COPD exacerbation -Continue oxygen, steroids, bronchodilators and antibiotics. Tobacco abuse - will order nicotine patch Hypertension -Monitor vital signs and titrate antihypertensives as needed.
[2020-05-21] MEDS: Atorvastatin Calcium 40 MG TAB PO SCH (21:05)
[2020-05-22 04:18] LABS: Anion Gap 16 mmol/L (10-20); BUN (Urea Nitrogen) 23 mg/dL (8.4-25.7); Calc. Creatinine Clearance 94 mL/min (70-130); Calcium 8.5 mg/dL (7.8-10.44); Carbon Dioxide 22 mmol/L (23-31); Chloride 99 mmol/L (98-107); Glucose 110 mg/dL (80-115); Potassium 3.9 mmol/L (3.5-5.1); Sodium 133 mmol/L (136-145)
[2020-05-22] MEDS: Furosemide 40 MG/4 ML VIAL SLOW IVP SCH (05:36)
[2020-05-22] MEDS: Mometasone 200 MCG/Formoterol 5 MCG 120 PUFF INHALER INH SCH ×2 (07:28→19:22)
[2020-05-22 07:49] LABS: Hemoglobin 16.5 g/dL (14.0-18.0); Platelet Count 180 thou/uL (130-400)
[2020-05-22] MEDS: Aspirin 81 mg Enteric Coated Tablet PO SCH (08:06)
[2020-05-22] MEDS: predniSONE 20 MG TAB PO SCH ×3 (08:06→23:18)
[2020-05-22] MEDS: Doxycycline 100 MG CAP PO SCH ×2 (08:06→21:05)
[2020-05-22] MEDS: Enoxaparin Sodium 80 MG/0.8 ML SYRINGE SC SCH (08:06)
[2020-05-22] MEDS ORDERED: Communication Order-Pharmacy FS SCH (08:45)
[2020-05-22] MEDS ORDERED: Furosemide 20 MG/2 ML VIAL SLOW IVP SCH ×2 (08:45→14:00)
--- NOTE | 2020-05-22 09:02 | PRG ---
DATE OF SERVICE: 05/22/2020 SUBJECTIVE: Mr. Gillespie says he is feeling better. He can lie down flat now. He is not short of breath. No chest pain. OBJECTIVE: VITAL SIGNS: Blood pressure is 117/69, pulse 70 and it is regular. LUNGS: Clear. CARDIAC: Normal S1, normal S2. ABDOMEN: Soft and nontender. EXTREMITIES: There is no edema. LABORATORY DATA: Potassium is 3.9 this morning. He still put out a lot of urine this morning after the intravenous diuretic dose, but 3.5 L of urine out yesterday. EKG does look like there is some likely ischemia with T-wave inversions and QT prolongation in the anterolateral leads. ASSESSMENT: 1. Tachycardia, probably supraventricular tachycardia as well as some ventricular tachycardia. 2. Previous bypass on 2 different occasions. 3. Lbr-QL-pwhuezheg infarction, probably demand ischemia. 4. Iodine allergy. 5. Congestive heart failure, systolic, acute, improved. PLAN: Proceed to cardiac catheterization tomorrow. The patient understands risk of stroke, heart attack, iodine allergy, loss of blood flow to the leg or kidney, stent thrombosis, stent restenosis. He understands and wishes to proceed. We will probably proceed with electrophysiologic evaluation as well tomorrow if intervention is not indicated. PROGNOSIS: Long-term guarded. Job ID: [id number]
[2020-05-22] MEDS: Enoxaparin Sodium 30 MG/0.3 ML SYRINGE SC SCH ×2 (09:23→21:06)
[2020-05-22 09:52] LABS: #Lymphocytes 1.5 thou/uL (1.20-3.40); #Monocytes 1.3 thou/uL (0.11-0.59); #Neutrophils 11.2 thou/uL (1.40-6.50); %Basophils 0.1 % (0.0-1.0); %Eosinophils 0.1 % (0.0-10.0); %Lymphocytes 10.9 % (21.0-51.0); %Neutrophils 79.8 % (42.0-75.0); Hemoglobin 16.5 g/dL (14.0-18.0); Mean Corpuscular HGB CONC 33.1 g/dL (32.0-36.0); Mean Corpuscular Hemoglobin 31.7 pg (27.0-31.0); Mean Corpuscular Volume 95.6 fL (78.0-98.0); Mean Platelet Volume 9.5 fL (7.4-10.4); Platelet Count 203 thou/uL (130-400); RBC Distribution Width 13.3 % (11.5-14.5); Red Blood Cell (RBC) Count 5.21 mill/uL (4.70-6.10); White Blood Cell (WBC) Count 14.1 thou/uL (4.8-10.8)
[2020-05-22 10:11] LABS: Anion Gap 17 mmol/L (10-20); BUN (Urea Nitrogen) 22 mg/dL (8.4-25.7); Calc. Creatinine Clearance 73 mL/min (70-130); Calcium 8.4 mg/dL (7.8-10.44); Carbon Dioxide 23 mmol/L (23-31); Chloride 96 mmol/L (98-107); Glucose 96 mg/dL (80-115); Potassium 3.8 mmol/L (3.5-5.1); Sodium 132 mmol/L (136-145)
--- NOTE | 2020-05-22 10:41 | PDOC.HOSPP ---
- Subjective Encounter Date: 05/22/20 Encounter Time: 08:00 Subjective: Patient seen for follow-up regarding non-ST elevation myocardial infarction. He denies any chest pain. Shortness of breath is better. He reports that he is able to lie flat. - Objective Vital Signs & Weight: Vital Signs (12 hours) Temp Pulse Resp BP BP Pulse Ox 05/22/20 07:35 97.8 F 69 18 115/74 96 05/22/20 07:29 97 05/22/20 07:28 72 16 96 05/22/20 03:35 98.8 F 87 18 117/69 97 05/22/20 03:02 96 05/22/20 00:35 81 122/72 Weight Weight 167 lb I&O: 05/21/20 05/22/20 05/23/20 06:59 06:59 06:59 Intake Total 1735 4094.4 Output Total 1999 3540 800 Balance -265 554.4 -800 Result Diagrams: 05/22/20 09:16 05/22/20 09:16 Additional Labs: I reviewed patient's labs and MAR EKG Reviewed by me: Yes (Normal sinus rhythm on telemetry) Hospitalist ROS - Review of Systems Cardiovascular: denies: chest pain, palpitations, orthopnea, paroxysmal noc. dyspnea, edema, light headedness Gastrointestinal: denies: nausea, vomiting, abdominal pain, diarrhea, constipation, melena, hematochezia - Medication Medications: Active Medications Generic Name Dose Route Start Last Admin Trade Name Freq PRN Reason Stop Dose Admin Aspirin 81 mg 05/21/20 09:00 05/22/20 08:06 Aspirin 81 Mg Enteric Coated Tablet PO 81 mg DAILY COREY Administration Atorvastatin Calcium 40 mg 05/20/20 21:00 05/21/20 21:05 Atorvastatin Calcium 40 Mg Tab PO 40 mg HS COREY Administration Doxycycline Hyclate 100 mg 05/20/20 21:00 05/22/20 08:06 Doxycycline 100 Mg Cap PO 100 mg BID COREY Administration Enoxaparin Sodium 30 mg 05/22/20 09:00 05/22/20 09:23 Enoxaparin Sodium 30 Mg/0.3 Ml Syringe SC 05/22/20 21:01 Not Given Q12HR COREY Mometasone Furoate/Formoterol Fumar 1 puff 05/20/20 18:30 05/22/20 07:28 Mometasone 200 Mcg/Formoterol 5 Mcg 120 Puff Inhaler INH 1 puff BID-RT COREY Administration Sacubitril/Valsartan 1 tab 05/21/20 21:00 05/22/20 08:06 Sacubitril 24mg/Valsartan 26mg Tab PO 1 tab BID COREY Administration Sodium Chloride 10 ml 05/21/20 21:00 05/22/20 08:07 Flush - Normal Saline 10 Ml Syringe IVF 10 ml Q12HR COREY Administration Hospitalist Exam Vitals: Vital Signs (12 hours) Temp Pulse Resp BP BP Pulse Ox 05/22/20 07:35 97.8 F 69 18 115/74 96 05/22/20 07:29 97 05/22/20 07:28 72 16 96 05/22/20 03:35 98.8 F 87 18 117/69 97 05/22/20 03:02 96 05/22/20 00:35 81 122/72 Weight Weight 167 lb General Appearance: awake alert Eye: anicteric sclera ENT: moist mucosa Neck: supple Heart: RRR Respiratory: CTAB Gastrointestinal: soft, non-tender Skin: no rashes Psychiatric: normal affect, normal behavior Hosp A/P - Plan #NSTEMI #Acute on chronic systolic and diastolic combined heart failure, NYHA class III- -patient is clinically improving. Continue diuretics. Cardiac catheterization tomorrow. Further management depending on findings. #Acute COPD exacerbation -Clinically improving, continue oxygen, steroids, bronchodilators and antibiotics. Tobacco abuse -Continue nicotine patch Hypertension -Stable and controlled
[2020-05-22] MEDS ORDERED: Potassium Chloride 20 MEQ TAB PO SCH (12:00)
--- NOTE | 2020-05-22 12:28 | PDOC.EP ---
- Subjective Date: 05/22/20 Time: 08:00 Interval History: Feels well but restless in the hospital room. Voices no recurrent tachycardia, palpitations or heart rhythm concerns. No chest pain - Review of Systems Constitutional: denies: chills, fever, malaise, sweats, weakness, other Respiratory: reports: shortness of breath. denies: cough, dry, hemoptysis Cardiology: denies: chest pain, edema, heart racing, light headedness, paroxysmal noc. dyspnea, orthopnea, palpitations, passing out, pleuritic pain, pressure, swelling, other Gastrointestinal: denies: abdominal pain, constipation, diarrhea, hematochezia, melena, nausea, vomitting, other Musculoskeletal: denies: unstable gait, falls, neck pain, shoulder pain, arm pain, hand pain, leg pain, foot pain, other - Objective Allergies/Adverse Reactions: Allergies Allergy/AdvReac Type Severity Reaction Status Date / Time Iodinated Contrast Media Allergy Mild Verified 12/10/18 16:28 Current Medications Albuterol/Ipratropium (Ipratropium/Albuterol Sulfate 3 Ml Neb) 3 ml NEB Q4H PRN PRN Reason: SOB &/or Wheezing Aspirin (Aspirin 81 Mg Enteric Coated Tablet) 81 mg PO DAILY [facility] Last Admin: 05/22/20 08:06 Dose: 81 mg Documented by: Atorvastatin Calcium (Atorvastatin Calcium 40 Mg Tab) 40 mg PO HS [facility] Last Admin: 05/21/20 21:05 Dose: 40 mg Documented by: Doxycycline Hyclate (Doxycycline 100 Mg Cap) 100 mg PO BID [facility] Last Admin: 05/22/20 08:06 Dose: 100 mg Documented by: Enoxaparin Sodium (Enoxaparin Sodium 30 Mg/0.3 Ml Syringe) 30 mg SC Q12HR [facility] Stop: 05/22/20 21:01 Last Admin: 05/22/20 09:23 Dose: Not Given Documented by: Famotidine (Famotidine 20 Mg Tab) 40 mg PO Q6HR [facility] Stop: 05/23/20 06:01 Furosemide (Furosemide 20 Mg/2 Ml Vial) 20 mg SLOW IVP 0600,1400 [facility] Stop: 05/22/20 23:59 Sodium Chloride (Normal Saline 0.9%) 1,000 mls @ 100 mls/hr IV .Q10H [facility] Miscellaneous Information (Communication Order-Pharmacy ) 0 each FS ONE [facility] Stop: 05/23/20 15:00 Mometasone Furoate/Formoterol Fumar (Mometasone 200 Mcg/Formoterol 5 Mcg 120 Puff Inhaler) 1 puff INH BID-RT [facility] Last Admin: 05/22/20 07:28 Dose: 1 puff Documented by: Potassium Chloride (Potassium Chloride 20 Meq Tab) 40 meq PO NOW [facility] Stop: 05/22/20 14:00 Prednisone (Prednisone 20 Mg Tab) 40 mg PO Q6HR [facility] Stop: 05/23/20 06:01 Sacubitril/Valsartan (Sacubitril 24mg/Valsartan 26mg Tab) 1 tab PO BID [facility] Last Admin: 05/22/20 08:06 Dose: 1 tab Documented by: Sodium Chloride (Flush - Normal Saline 10 Ml Syringe) 10 ml IVF Q12HR [facility] Last Admin: 05/22/20 08:07 Dose: 10 ml Documented by: Sodium Chloride (Flush - Normal Saline 10 Ml Syringe) 10 ml IVF PRN PRN PRN Reason: Saline Flush Vital Signs & Weight: Vital Signs Temp Pulse Resp BP BP Pulse Ox 05/22/20 11:00 97.6 F 97 16 117/70 97 05/22/20 07:35 97.8 F 69 18 115/74 96 05/22/20 07:29 97 05/22/20 07:28 72 16 96 05/22/20 03:35 98.8 F 87 18 117/69 97 05/22/20 03:02 96 05/22/20 00:35 81 122/72 Weight 167 lb I/O: I/O 05/21/20 05/22/20 05/23/20 06:59 06:59 06:59 Intake Total 5995 4094.4 Output Total 1999 8190 800 Balance -265 554.4 -800 - Physical Exam General: alert & oriented x3, appears well, no apparent distress, speech clear, affect appropriate HEENT: mucus membranes moist, normocephaly Neck: supple neck, midline trachea, no JVD/HJR, no masses, no bruit, no lymphadenopathy, no thromegaly Cardiology: regular rate and rhythm, no murmur, regular rate, regular rhythm, PMI nondisplaced Lungs: decreased breath sounds, wheezes, bibasilar rales Neurology: cranial nerve 2-12 intact, grossly intact, motor function intact, sensory function intact, negative rhomberg, coordination normal, no lateralizing findings Abdomen: unremarkable, active bowel sounds, soft, non-tender, no masses, no pulsations/bruits, no hepatosplenomegaly, HJR negative - Labs Result Diagrams: 05/22/20 09:16 05/22/20 09:16 - EKG Interpretation EKG Method: Telemetry EKG shows: Sinus rhythm - Assessment/Plan Assessment/Plan: 1. Supraventricular tachycardia. a. Brief conversion on adenosine 6 mg and 12 mg, sinus rhythm restored with amiodarone bolus and drip. b. Symptomatic with shortness of breath and chest pain. 2. Coronary artery disease with [id number] [place] this admission. a. Greater than 8 stents in the past. b. Coronary artery bypass grafting 1st in 2002 with redo in 2018, SHARMA to LAD, SVG to OM, SVG to PDA, and SVG to posterolateral branch. 3. Nonsustained ventricular tachycardia, and PVCs initially seen post redo bypass in 12/2018, discharged on short course of amiodarone. 4. Ischemic cardiomyopathy. a. On 07/28/2017, echocardiogram; LVEF 45% to 50%, PVCs, LA normal size, normal mitral valve, normal aortic valve, trace TR. b. On 12/11/2018, LVEF 50% to 55%, left atrium laid-ay-[id number] dilation, modera te MR, mild TR, diastolic dysfunction noted. c. On 05/19/2020, echocardiogram; LVEF 20% to 25%, grade 2/3 diastolic dysfunction, mild dilated left atrium, mitral annular calcification, mild MR, mild TR, moderate pleural effusion, LA dimension 4.81 cm. 5. COPD. 6. Hypertension. 7. Hyperlipidemia. 8. Long-term tobacco habituation, 2 packs per day. 9. Medication noncompliance with poor followup. left heart catheterization tomorrow morning with Dr. Casey. if coronary artery disease status is found to be stable anticipate EP study with possible ablation sometime to follow tomorrow. stopped amiodarone pending possible EP study with ablation. Hopefully the recent amiodarone will not suppress his SVT if EP study is possible tomorrow. NPO after midnight. Patient consents to the procedure And we have discussed the risks benefits and alternatives at length.
--- NOTE | 2020-05-22 12:57 | EKG ---
Test Reason : Blood Pressure : / mmHG Vent. Rate : 076 BPM Atrial Rate : 076 BPM P-R Int : 152 ms QRS Dur : 102 ms QT Int : 472 ms P-R-T Axes : 038 055 200 degrees QTc Int : 531 ms Sinus rhythm with frequent Premature ventricular complexes and Premature atrial complexes Possible Left atrial enlargement Left ventricular hypertrophy Prolonged QT Abnormal ECG When compared with ECG of 20-MAY-2020 06:29, (Unconfirmed) Significant changes have occurred Confirmed by DR. Scott CM ([id number]) on 05/22/2020 12:56:59 PM Referred By: TOI Confirmed By:DR. Scott CM
[2020-05-22] MEDS: Famotidine 20 MG TAB PO SCH ×2 (17:09→23:18)
[2020-05-22] MEDS ORDERED: Enoxaparin Sodium 80 MG/0.8 ML SYRINGE SC SCH (21:00)
[2020-05-22] MEDS: Atorvastatin Calcium 40 MG TAB PO SCH (21:05)
[2020-05-23] MEDS ORDERED: Sodium Chloride 0.9% 1,000 ML IV SCH ×2 (06:00→08:48)
[2020-05-23] MEDS: predniSONE 20 MG TAB PO SCH (06:00)
[2020-05-23] MEDS: Famotidine 20 MG TAB PO SCH (06:00)
[2020-05-23] MEDS: Mometasone 200 MCG/Formoterol 5 MCG 120 PUFF INHALER INH SCH ×2 (07:20→18:58)
[2020-05-23] MEDS ORDERED: Heparin 0 ML ONE (07:21)
[2020-05-23 07:23] LABS: Anion Gap 16 mmol/L (10-20); BUN (Urea Nitrogen) 21 mg/dL (8.4-25.7); Calc. Creatinine Clearance 99 mL/min (70-130); Calcium 8.1 mg/dL (7.8-10.44); Carbon Dioxide 22 mmol/L (23-31); Chloride 96 mmol/L (98-107); Glucose 122 mg/dL (80-115); Potassium 4.4 mmol/L (3.5-5.1); Sodium 130 mmol/L (136-145)
[2020-05-23] MEDS ORDERED: Fentanyl 100 MCG/2 ML VIAL ONE ×2 (07:53→13:22)
[2020-05-23] MEDS ORDERED: diphenhydrAMINE 50 MG/ML VIAL ONE (07:53)
[2020-05-23] MEDS ORDERED: Midazolam HCl 2 mg/2 ml Vial ONE ×2 (07:54→13:22)
--- NOTE | 2020-05-23 08:20 | PQF ---
CLINICAL DOCUMENTATION CLARIFICATION FORM: Dear Dr. Santos Thomas Date / Time: 05/23/20 Please exercise your independent, professional judgment in responding to the clarification form. Clinical indicators are provided on the bottom of this form for your review. Please check appropriate box(es): [ ] Hyponatremia please specify etiology, if known [ ] Hyponatremia due to SIADH (Syndrome of Inappropriate Secretion of Antidiuretic Hormone) [ ] Other diagnosis [ ] Unable to determine In addition, please specify: Present on Admission (POA): [ ] Yes [ ] No [ ] Unable to determine For continuity of documentation, please document condition throughout progress notes and discharge summary. Thank You. To be completed by CDI/Coding staff for physician review: CLINICAL INDICATORS - SIGNS / SYMPTOMS / LABS / RESULTS AND LOCATION IN EMR Na 133, 132, 130 (Lab values (EMR) 05/22 - ) RISK FACTORS / RESULTS AND LOCATION IN EMR Acute on chronic systolic CHF (H&P, 05/20, progress notes 05/21 -) IV Lasix (MAR, 05/20 05/22) TREATMENTS / RESULTS AND LOCATION IN EMR Series of electrolyte labs (Lab values EMR, 05/20 05/23) Thank you! CDS Signature: Juanis Mohr RN, BSN Phone #: Ext [phone] Date: 05/23/20 This is a permanent part of the Medical Record [facility]
[2020-05-23] MEDS ORDERED: Sodium Chloride 0.9% 200 ML IV PRN (08:48)
[2020-05-23] MEDS ORDERED: Acetaminophen/Codeine 30-300mg Tablet PO PRN ×2 (08:48)
[2020-05-23] MEDS ORDERED: Nitroglycerin 0.4 MG TAB (25 Tab Bottle) SL PRN (08:48)
[2020-05-23] MEDS ORDERED: PROPOFOL 200 MG/20 ML VIAL ONE (08:56)
[2020-05-23] MEDS ORDERED: Lidocaine 1% PF 5 ML VIAL ONE (08:56)
[2020-05-23] MEDS: Doxycycline 100 MG CAP PO SCH ×2 (09:14→21:30)
[2020-05-23] MEDS: Aspirin 81 mg Enteric Coated Tablet PO SCH (09:14)
[2020-05-23] MEDS ORDERED: Iopamidol 370 76% 100 ML VIAL ONE (10:01)
[2020-05-23] MEDS ORDERED: Iopamidol 370 76% 50 ML VIAL FS ONE (10:01)
[2020-05-23] MEDS ORDERED: Propofol 500 MG/50 ML VIAL ONE (13:22)
[2020-05-23] MEDS ORDERED: Phenylephrine 10 MG/ML VIAL ONE (13:36)
[2020-05-23] MEDS ORDERED: Heparin 10,000 UNITS/ 10 ML VIAL ONE (14:09)
[2020-05-23] MEDS ORDERED: Isoproterenol 0.2 MG/1 ML AMP ONE (14:09)
[2020-05-23] MEDS ORDERED: PROPOFOL 20 ML ONE (15:09)
[2020-05-23] MEDS: Atorvastatin Calcium 40 MG TAB PO SCH (21:30)
[2020-05-23] MEDS: Sacubitril 49 MG/Valsartan 51 MG TABLET PO SCH (21:30)
--- NOTE | 2020-05-23 23:02 | OP ---
DATE OF PROCEDURE: 05/23/2020 PROCEDURE PERFORMED: Electrophysiology study and radiofrequency ablation. REASON FOR PROCEDURE: Mr. Gillespie is a 64-year-old man with a prior history of coronary artery disease bypass grafting surgery. He is presenting with tachy palpitations and dyspnea, non-ST elevation myocardial infarction. He is found to have severely reduced LVEF. In the ER, he was noted to be in SVT with poor response to adenosine, eventually responded to amiodarone suppression. Amiodarone was stopped yesterday. He is here for EP study and possible ablation. His left heart catheterization today demonstrated patent bypass grafts. PROCEDURE IN DETAIL: The patient received deep sedation by Anesthesia specialist. After adequate level of sedation achieved, the left and right femoral venous area was prepped, draped, and anesthetized using subcutaneous lidocaine, and under ultrasound guidance, both femoral veins were cannulated x2 on the left side, one from the right side. A 6 and 8-St Lucian sheaths were used on the left side to advance an octapolar and a decapolar catheter into the right atrium, right ventricle, his bundle, and eventually CS position. With the help of [employer] system, we were able to obtain a 3D map of the right atrium and His and CS positions. Following that, basic EP study was performed. NUMERICAL FINDINGS: Baseline rhythm was sinus rhythm with RR 926 milliseconds, QRS 103 milliseconds, QT 455 milliseconds, AH 95 milliseconds, HV 46 milliseconds. AV Wenckebach cycle length was measured at 330 milliseconds. Retrograde Wenckebach cycle length was 390 milliseconds. AV matt ERP was less than 600/240 milliseconds. The VAERP was 400/240 milliseconds. Ventricular ERP was measured at 400/260/200/180 milliseconds at which point a nonsustained ventricular tachycardia run was induced for a duration of 3 seconds. There appeared to be a very rapid ventricular flutter with cycle length of 220 milliseconds. With burst atrial pacing, we were able to induce a short one-to-one tachycardia which was consistent with AV matt reentrant tachycardia with very short VA timing. Also during atrial access to my testing, we were able to demonstrate dual AV matt physiology. VA conduction was concentric. I performed slow pathway modification with the help of Sapphire 4mm tip, nonirrigated catheter, 3D map of the His bundle and slow pathway area was obtained. Under fluoroscopic and echographic monitoring, radiofrequency ablation lesions delivered for a minute at 40 cortes with 50 degree temperature cutoff at the slow pathway area. During the ablation, junctional rhythm was observed. Following this, no definite slow pathway conduction was seen. AV Wenckebach cycle length was 300 milliseconds. No dual AV matt physiology was noted. The burst atrial pacing protocols were repeated. With ventricular extrastimuli testing, a retrograde VA conduction was seen and a short supraventricular tachycardia was seen which was consistent with atrial tachycardia, but did not sustain. Isuprel was administered. We attempted induction of additional atrial arrhythmias. No atrial fibrillation or flutter was seen. The AV matt reentrant tachycardia was noninducible. We were not able to re-induce atrial tachycardia either. Ventricular tachycardia was not seen in the washout phase of Isuprel with up to 3 ventricular extrastimuli decremented to the refractory period. CONCLUSION: 1. Inducible AV matt reentrant tachycardia. 2. Slow pathway modification eliminates inducibility and slow pathway conduction. 3. Short nonsustained atrial tachycardia is seen. 4. No direct evidence of accessory pathway is noted. 5. Only nonsustained ventricular tachycardia induced with 3 tightly paced ventricular extrastimuli. PLAN: 1. Continue monitoring for atrial arrhythmias. 2. Hence, to reduce LVEF, I agree with plans for LifeVest. Consider ICD implant in 40 days if no improvements with the LVEF seen beyond 35%. Job ID: [id number] [facility]
[2020-05-24 05:25] LABS: Anion Gap 13 mmol/L (10-20); BUN (Urea Nitrogen) 15 mg/dL (8.4-25.7); Calc. Creatinine Clearance 101 mL/min (70-130); Calcium 7.8 mg/dL (7.8-10.44); Carbon Dioxide 23 mmol/L (23-31); Chloride 101 mmol/L (98-107); Glucose 88 mg/dL (80-115); Potassium 3.7 mmol/L (3.5-5.1); Sodium 133 mmol/L (136-145)
[2020-05-24] MEDS: Mometasone 200 MCG/Formoterol 5 MCG 120 PUFF INHALER INH SCH (07:23)
[2020-05-24 07:28] LABS: Hemoglobin 16.2 g/dL (14.0-18.0); Platelet Count 163 thou/uL (130-400)
[2020-05-24] MEDS ORDERED: Carvedilol 6.25 MG TAB PO SCH (08:00)
[2020-05-24] MEDS: Sacubitril 49 MG/Valsartan 51 MG TABLET PO SCH (09:00)
[2020-05-24] MEDS: Doxycycline 100 MG CAP PO SCH (09:00)
[2020-05-24] MEDS: Aspirin 81 mg Enteric Coated Tablet PO SCH (09:00)
[2020-05-24] MEDS ORDERED: Potassium Chloride 20 MEQ TAB PO SCH (09:15)
--- NOTE | 2020-05-24 09:46 | PRG ---
DATE OF SERVICE: 05/24/2020 Mr. Gillespie feels well. No chest pain or pressure. Yesterday, he underwent cardiac catheterization showing he is well vascularized. He underwent EP evaluation showing he has SVT, underwent successful ablation. The patient should be able to be released home today. He is trying to be fitted for LifeVest. His ejection fraction is 25%. MEDICATIONS: 1. Entresto 49/51 twice a day. 2. Coreg 6.25 mg twice a day. 3. Atorvastatin 40 mg a day. 4. Aspirin 81 mg a day. PERTINENT LABORATORY: Here his creatinine was 0.8, potassium 3.7 today. He is going to receive some additional potassium. There was not a cholesterol drawn on this admission. The most recent LDL cholesterol in the computer was in 2018, it was 143, that is probably off statin. That will need to be rechecked as an outpatient. The patient be seen in the office in 2 weeks to see if the medicines need to be readjusted. He is going to be fitted for a LifeVest in the meantime. Job ID: [id number]
--- NOTE | 2020-05-24 10:25 | PDOC.EP ---
- Subjective Date: 05/24/20 Time: 08:00 Interval History: feels well after his procedures yesterday. Denies any chest pain, groin pain or bleeding issues at the access sites. - Review of Systems Constitutional: denies: chills, fever, malaise, sweats, weakness, other Respiratory: reports: cough ( Chronic with tobacco habituation). denies: dry, hemoptysis, pleuritic pain, shortness of breath, SOB with excertion, sputum, wheezing, other Cardiology: denies: chest pain, edema, heart racing, light headedness, paroxysmal noc. dyspnea, orthopnea, palpitations, passing out, pleuritic pain, pressure, swelling, other Gastrointestinal: denies: abdominal pain, constipation, diarrhea, hematochezia, melena, nausea, vomitting, other Musculoskeletal: denies: unstable gait, falls, neck pain, shoulder pain, arm pain, hand pain, leg pain, foot pain, other - Objective Allergies/Adverse Reactions: Allergies Allergy/AdvReac Type Severity Reaction Status Date / Time Iodinated Contrast Media Allergy Mild Verified 12/10/18 16:28 Current Medications Acetaminophen/Codeine Phosphate (Acetaminophen/Codeine 30-300mg Tablet) 1 tab PO Q4H PRN PRN Reason: Mild Pain (1-3) Aspirin (Aspirin 81 Mg Enteric Coated Tablet) 81 mg PO DAILY [facility] Last Admin: 05/24/20 09:00 Dose: 81 mg Documented by: Atorvastatin Calcium (Atorvastatin Calcium 40 Mg Tab) 40 mg PO [facility] Last Admin: 05/23/20 21:30 Dose: 40 mg Documented by: Carvedilol (Carvedilol 6.25 Mg Tab) 6.25 mg PO BID-[facility] Last Admin: 05/24/20 09:00 Dose: 6.25 mg Documented by: Doxycycline Hyclate (Doxycycline 100 Mg Cap) 100 mg PO BID [facility] Last Admin: 05/24/20 09:00 Dose: 100 mg Documented by: Famotidine (Famotidine 20 Mg Tab) 40 mg PO Q6HR [facility] Stop: 05/23/20 06:01 Last Admin: 05/23/20 06:00 Dose: 40 mg Documented by: Mometasone Furoate/Formoterol Fumar (Mometasone 200 Mcg/Formoterol 5 Mcg 120 Puff Inhaler) 1 puff INH BID-RT [facility] Last Admin: 05/24/20 07:23 Dose: 1 puff Documented by: Nitroglycerin (Nitroglycerin 0.4 Mg Tab (25 Tab Bottle)) 0.4 mg SL Q5MIN PRN PRN Reason: Chest Pain Potassium Chloride (Potassium Chloride 20 Meq Tab) 40 meq PO NOW [facility] Stop: 05/24/20 12:00 Last Admin: 05/24/20 10:13 Dose: 40 meq Documented by: Prednisone (Prednisone 20 Mg Tab) 40 mg PO Q6HR [facility] Stop: 05/23/20 06:01 Last Admin: 05/23/20 06:00 Dose: 40 mg Documented by: Sacubitril/Valsartan (Sacubitril 49 Mg/Valsartan 51 Mg Tablet) 1 tab PO BID [facility] Last Admin: 05/24/20 09:00 Dose: 1 tab Documented by: Sodium Chloride (Flush - Normal Saline 10 Ml Syringe) 10 ml IVF Q12HR [facility] Last Admin: 05/24/20 09:00 Dose: 10 ml Documented by: Sodium Chloride (Flush - Normal Saline 10 Ml Syringe) 10 ml IVF PRN PRN PRN Reason: Saline Flush Vital Signs & Weight: Vital Signs Temp Pulse Resp BP BP Pulse Ox 05/24/20 07:22 97.7 F 70 16 109/61 97 05/24/20 04:40 97 05/24/20 04:28 97.6 F 69 18 100/59 L 97 05/23/20 23:25 97.9 F 101/55 L 99 Weight 159 lb 11.2 oz I/O: I/O 05/23/20 05/24/20 05/25/20 06:59 06:59 06:59 Intake Total 2897.4 1440 Output Total 4380 2600 Balance -1482.6 -1160 - Physical Exam General: alert & oriented x3, appears well, no apparent distress, speech clear, affect appropriate HEENT: mucus membranes moist, normocephaly Neck: supple neck, midline trachea, no JVD/HJR, no masses, no bruit, no lymphadenopathy, no thromegaly Cardiology: regular rate and rhythm, no murmur, PMI nondisplaced Lungs: no wheeze, rales, rhonchi, decreased breath sounds Neurology: cranial nerve 2-12 intact, grossly intact, motor function intact, sensory function intact, negative rhomberg, coordination normal, no lateralizing findings - Labs Result Diagrams: 05/24/20 07:14 05/24/20 07:14 - EKG Interpretation EKG Method: Telemetry EKG shows: Sinus rhythm - Assessment/Plan Assessment/Plan: 1. SVT 2. Cardiomyopathy, possibly tachcyardia mediated - lifevest ordered by cardiology - GDMT by card - reassess LVEF after 3 months optimal GDMT, consider ICD implant if </= 35% 3. COPD -ongoing tobacco use EPS on 05/23: inducible for AVNRT and slow pathway modification done. No additional sustained arrhythmias induced. OK for DC by EP once lifevest is in place. 6 week follow up at my office
--- NOTE | 2020-05-24 10:41 | PDOC.DS.DS ---
Provider Date of Admission: 05/20/20 08:15 Date of Discharge: 05/24/20 Admitting Provider: Tayler Coburn MD Consultations: Cardiology (Dr. Casey), None (Electrophysiology: Dr. Foster) Primary Care Physician: Eliezer Tinoco MD Course Hospital Course: Discharge diagnosis: 1. Non-ST elevation myocardial infarction 2. Supraventricular tachycardia 3. 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 COPD exacerbation 5. Hyponatremia 6. COVID-19 test negative 7. Cardiomyopathy 8. Hyponatremia of unknown etiology, present on admission Hospital course: Patient is a pleasant 64-year-old gentleman who was admitted to the hospital on May 20, 2019 for heart failure exacerbation, COPD exacerbation, non-ST elevation myocardial infarction and supraventricular tachycardia. He was seen by cardiology service. 2D echocardiogram showed left ventricle ejection fraction of 20 to 25% and grade 2/3 diastolic dysfunction. He underwent cardiac catheterization, which showed patent grafts. He also underwent EP study. It was inducible for AVNRT and slow pathway modification was done. Patient was fitted with LifeVest for cardiomyopathy prior to discharge. Many thanks for allowing me to participate in your patient's care. Please feel free to contact me with any questions or concerns. Discharge destination: Home Total amount of time spent coordinating this discharge: 33 minutes Lab Results: 05/24/20 07:14 05/24/20 07:14 Abnormal Lab Results - Last 48 hrs 05/23/20 03:30: Sodium 130 L, Chloride 96 L, Carbon Dioxide 22 L 05/24/20 04:19: Sodium 133 L Vitals: Vital Signs (12 hours) Temp Pulse Pulse Pulse Resp BP BP 05/24/20 08:43 82 88 121/60 123/68 05/24/20 07:22 97.7 F 70 16 05/24/20 04:40 05/24/20 04:28 97.6 F 69 18 05/23/20 23:25 97.9 F BP BP Pulse Ox 05/24/20 08:43 05/24/20 07:22 109/61 97 05/24/20 04:40 97 05/24/20 04:28 100/59 L 97 05/23/20 23:25 101/55 L 99 Weight Weight 159 lb 11.2 oz Physical Exam: The patient was seen and examined on the day of discharge. Patient denies chest pain or shortness of breath. Vital signs are stable. S1 and S2 are heard. Stef gs are clear to auscultation bilaterally. Plan Prescriptions: Carvedilol [Coreg] 6.25 mg PO BID-WM #60 tab Sacubitril/Valsartan 49/51 [Entresto 49 mg-51 mg Tablet] 1 tab PO BID #60 tab Atorvastatin Calcium [Lipitor] 40 mg PO HS #30 tab Home Medications: Medication Instructions Recorded Confirmed Type Ipratropium/Albuterol Sulfate 1 inh IN Q4HR PRN 05/20/20 05/20/20 History [DuoNeb] Aspirin [Ecotrin Low Strength] 81 mg PO DAILY tab 05/24/20 Rx Atorvastatin Calcium [Lipitor] 40 mg PO HS #30 tab 05/24/20 Rx Carvedilol [Coreg] 6.25 mg PO BID-WM #60 tab 05/24/20 Rx Sacubitril/Valsartan 49/51 1 tab PO BID #60 tab 05/24/20 Rx [Entresto 49 mg-51 mg Tablet] Allergies: Iodinated Contrast Media Allergy (Mild, Verified 12/10/18 16:28) PT REPORTS EXCESSIVE SNEEZING Discharge Instructions:: ZONE TOOL - ACUTE MYOCARDIAL INFARCTION (Heart Attack) GREEN ZONE All Clear (GOAL): No problem breathing No chest pain or discomfort, like pressure on your chest No pain or discomfort in one or both arms, the back, neck, jaw or stomach No nausea/vomiting, dizziness or cold sweats No loss of consciousness, weakness or confusion Common to feel a little depressed or frustrated - talk to family & friends, remain social! Doing Great! Youre not having any symptoms described above Take medications as ordered Maintain healthy weight Eat foods low in salt (Heart Healthy Diet) Stop smoking ask your doctor how! Limit alcohol Keep all doctor appointments Attending Cardiac Rehab YELLOW ZONE Warning - If you have the following: Abnormal levels of cholesterol High blood pressure - 150/95 or higher Smoking cigarettes, e-cigarettes, chewing tobacco, cigars or pipes - Call [id number] Diabetes: check blood sugar daily & consistently - if your blood sugar before eating is greater than 140 call your doctor Stress and strong emotions such as depression, anxiety and anger talk to family & friends, remain social! Lack of physical activity start walking a little bit a day Act Today! Call your doctor & inform them of your symptoms Ask your doctor about how to quit smoking Eat a heart healthy diet, exercise and take your medications as directed Call your home health nurse: Phone # Or call your doctor: Phone # RED ZONE Emergency Chest pain or pressure, squeezing or fullness feeling may come and go Pain or discomfort in one or both arms, the back, neck, jaw or stomach Shortness of breath with or without chest discomfort Breaking out into a cold sweat, dizziness, nausea or vomiting Weakness, fainting or confusion can be symptoms for older adults Women tend to have shortness of breath, nausea and vomiting, back pain or jaw pain Act NOW! Call 911 Call your doctor Phone # TAKE CONTROL OF HEART FAILURE Together we can! o Weigh yourself daily every morning after going to the bathroom. Call your health care provider if you gain 2 pounds in a day or 5 pounds in a week. Use the daily log provided to record your weight. o Eat no more than 2 grams (2000mg) sodium (salt) a day. Read food labels and throw away the salt shaker! o Your personal fluid limit: Take in no more than [ 2000 ] ml, equal to [ 8 ] Cups PER DAY. This includes anything that is liquid at room temperature. o Take your Medications as prescribed. Do not skip doses. If you can't afford your medications, please let your doctor know. o Watch for worsening heart failure symptoms such as increased swelling or increased shortness of breath with activity or at rest. o Follow-up with your primary care provider within 1 week of discharge from the hospital. o Maintain activity as tolerated with frequent rest periods. o If you smoke - smoking puts stress on your heart. We can help you quit smoking, just ask. o Expect a follow up call in one to three days if you are being discharged to your home. Please go to heart.org/myhfguide to learn even more about managing your heart failure using the free interactive workbook. AFTER HOSPITAL CARE PLAN and EDUCATION COPD - CHRONIC OBSTRUCTIVE PULMONARY DISEASE Dont give up giving up: If you smoke, quit. Smoking is the main cause of COPD. Quitting will help you manage your COPD. Always take medications as prescribed: Systemic Corticosteroids increase blood sugar - watch your blood sugar closely while taking steroid treatments. [place] Scrubem: Infections can cause symptoms to worsen. Stay away from sick people & wash your hands often. Oxygen: Can be prescribed if tests show your blood contains too little oxygen. Oxygen is flammable - Do Not Smoke near oxygen tank. Stress: Stress can make COPD worse. Find a quiet place & sit or lie in a comfortable position. Close your eyes & use breathing exercises for several minutes. Balance rest & activity: Being tired can increase risk of infection. * Stop & rest when you need to * Sit to dress, undress, shave, brush your teeth & comb your hair * Sit on a bench to shower * Keep things you use most at waist level When to call your Doctors office: If you notice any of the below symptoms: * Short of breath, wheezing, coughing * Increased mucus * Yellow, green, bloody, or smelly mucus * Fever or chills * Tightness in chest that does not go away with rest or medication * Irregular heartbeat or feeling heart race * Swollen ankles Seek Immediate medical care: If you notice any of the below symptoms: * You have worsening shortness of breath * You have trouble talking * You have severe chest pain * You have blood in your sputum * You have weakness, vomit repeatedly or faint * You continue to get worse Activity:: Activity as Tolerated Nourishment:: Heart Healthy Diet Referrals: Cardiac Rehab - [place] [Outside] - 7 Days ( Your doctor has ordered outpatient cardiac rehab for you to begin within 1-2 weeks after you go home from the hospital. The location nearest to you is the [facility]. We will call you in 3-5 days to get you scheduled for your evaluation. If you do not receive a call, please reach out to us at [phone] and request an appointment.) Eliezer Tinoco MD [Primary Care Provider] - 05/28/20 10:00 am (Please follow-up within 7 days.) Uriel Foster MD [Radio Producer] - (6 weeks [phone]) Thea Casey MD [Active] - 06/08/20 9:00 am () Disposition: HOME Quality CORE MEASURES:: N/A
[2020-05-24 11:59] VITALS: BP 102/61; TEMP 97.8
== END 2020-05-24 13:00 | disposition home or self-care (01) | DRG 273 ==
LOC: ERS 06:04 → 2NO 08:15
PROVIDERS: ADMIT Internal Medicine; ATTEND Internal Medicine
PROC: 02583ZZ Destruction of Conduction Mechanism, Percutaneous Approach (ICD-10-PCS; principal; 2020-05-23)
PROC: 4A023FZ Measurement of Cardiac Rhythm, Percutaneous Approach (ICD-10-PCS; 2020-05-23)
PROC: 4A0234Z Measurement of Cardiac Electrical Activity, Percutaneous Approach (ICD-10-PCS; 2020-05-23)
PROC: 02K83ZZ Map Conduction Mechanism, Percutaneous Approach (ICD-10-PCS; 2020-05-23)
PROC: 4A023N7 Measurement of Cardiac Sampling and Pressure, Left Heart, Percutaneous Approach (ICD-10-PCS; 2020-05-23)
PROC: B2151ZZ Fluoroscopy of Left Heart using Low Osmolar Contrast (ICD-10-PCS; 2020-05-23)
PROC: B2111ZZ Fluoroscopy of Multiple Coronary Arteries using Low Osmolar Contrast (ICD-10-PCS; 2020-05-23)
DX: I47.1 Supraventricular tachycardia (principal); I21.4 Non-ST elevation (NSTEMI) myocardial infarction; I50.43 Acute on chronic combined systolic (congestive) and diastolic (congestive) heart failure; J44.1 Chronic obstructive pulmonary disease with (acute) exacerbation; E87.1 Hypo-osmolality and hyponatremia; Z20.822 Contact with and (suspected) exposure to COVID-19; Z23 Encounter for immunization; I11.0 Hypertensive heart disease with heart failure; I25.10 Atherosclerotic heart disease of native coronary artery without angina pectoris; I48.91 Unspecified atrial fibrillation; I25.5 Ischemic cardiomyopathy; E78.5 Hyperlipidemia, unspecified; F17.210 Nicotine dependence, cigarettes, uncomplicated; D72.829 Elevated white blood cell count, unspecified; I47.2 Ventricular tachycardia; Z79.82 Long term (current) use of aspirin; Z79.899 Other long term (current) drug therapy; Z91.14 Patient's other noncompliance with medication regimen; Z91.041 Radiographic dye allergy status; Z95.5 Presence of coronary angioplasty implant and graft; Z79.51 Long term (current) use of inhaled steroids
CPT/HCPCS: 36415; 71045; 71275; 76942; 80048; 80053; 82553; 82565; 83735; 83880; 84484; 85014; 85018; 85025; 85027; 85049; 85379; 85610; 85730; 87635; 93005; 93010; 93306; 93459; 93613; 93621; 93623; 93653; 93798; 94760; 96365; 96366; 96374; 96375; 96376; 99152; 99153; J0153; J0282; J1200; J1644; J1650; J1940; J2250; J2370; J2704; J2930; J3010; J7070; J7512; Q9967; S0028; U0003; U0005

== ENCOUNTER 2020-06-12 07:09 | Emergency (ER) | payer BC ==
[2020-06-12 07:49] LABS: #Basophils 0.1 thou/uL (0.0-0.2); #Eosinphils 0.2 thou/uL (0.0-0.7); #Lymphocytes 0.8 thou/uL (1.20-3.40); #Monocytes 0.5 thou/uL (0.11-0.59); #Neutrophils 5.7 thou/uL (1.40-6.50); %Basophils 0.9 % (0.0-1.0); %Eosinophils 2.6 % (0.0-10.0); %Lymphocytes 11.1 % (21.0-51.0); %Monocytes 7.1 % (0.0-10.0); %Neutrophils 78.3 % (42.0-75.0); Hemoglobin 14.3 g/dL (14.0-18.0); Mean Corpuscular HGB CONC 32.4 g/dL (32.0-36.0); Mean Corpuscular Hemoglobin 29.8 pg (27.0-31.0); Mean Platelet Volume 8.6 fL (7.4-10.4); Platelet Count 224 thou/uL (130-400); RBC Distribution Width 12.1 % (11.5-14.5); Red Blood Cell (RBC) Count 4.79 mill/uL (4.70-6.10); White Blood Cell (WBC) Count 7.3 thou/uL (4.8-10.8)
--- NOTE | 2020-06-12 08:14 | RAD ---
PORTABLE CHEST: Date: 06/12/2020 HISTORY: Shortness of breath. COMPARISON: 05/20/2020 exam. FINDINGS: Heart size is borderline with postop sternotomy changes. Chronic appearing lung changes are seen with out focal infiltrates. Interstitial changes are less prominent than on the prior exam. IMPRESSION: Interstitial lung changes which have a chronic appearance. POS: OFF
[2020-06-12 08:15] LABS: ALT (SGPT) 15 U/L (8-55); AST (SGOT) 18 U/L (5-34); Albumin 4.3 g/dL (3.4-4.8); Alkaline Phosphatase 89 U/L (40-110); Anion Gap 14 mmol/L (10-20); BUN (Urea Nitrogen) 10 mg/dL (8.4-25.7); Bilirubin, Total 0.6 mg/dL (0.2-1.2); Calc. Creatinine Clearance 0 mL/min (70-130); Calcium 8.5 mg/dL (7.8-10.44); Carbon Dioxide 26 mmol/L (23-31); Chloride 104 mmol/L (98-107); Globulin 2.4 g/dL (2.4-3.5); Glucose 99 mg/dL (80-115); Potassium 4.5 mmol/L (3.5-5.1); Protein, Total 6.7 g/dL (5.8-8.1); Sodium 139 mmol/L (136-145)
[2020-06-12 08:34] LABS: CKMB 1.6 ng/mL (0-6.6)
[2020-06-12] MEDS ORDERED: Furosemide 40 MG/4 ML VIAL ONE ×2 (08:56→08:58)
[2020-06-12] MEDS ORDERED: Potassium Chloride 20 MEQ TAB ONE (09:05)
== END 2020-06-12 09:27 | disposition home or self-care (01) ==
LOC: ERS 07:09
DX: I11.0 Hypertensive heart disease with heart failure (principal); I50.9 Heart failure, unspecified; F17.210 Nicotine dependence, cigarettes, uncomplicated; Z79.82 Long term (current) use of aspirin; Z79.899 Other long term (current) drug therapy
CPT/HCPCS: 36415; 71045; 80053; 82553; 83880; 84484; 85025; 93005; 96374; J1940

== ENCOUNTER 2020-06-18 01:17 | Inpatient (IN) | payer BC ==
[2020-06-18] MEDS ORDERED: Albuterol Sulfate 1.25 MG/3 ML NEB ONE (01:23)
[2020-06-18 01:40] LABS: #Basophils 0.2 thou/uL (0.0-0.2); #Eosinphils 0.4 thou/uL (0.0-0.7); #Lymphocytes 3.5 thou/uL (1.20-3.40); #Monocytes 0.8 thou/uL (0.11-0.59); #Neutrophils 6.9 thou/uL (1.40-6.50); %Basophils 1.5 % (0.0-1.0); %Eosinophils 3.4 % (0.0-10.0); %Lymphocytes 29.9 % (21.0-51.0); %Monocytes 6.8 % (0.0-10.0); %Neutrophils 58.4 % (42.0-75.0); Hemoglobin 15.8 g/dL (14.0-18.0); Mean Corpuscular HGB CONC 34.1 g/dL (32.0-36.0); Mean Corpuscular Hemoglobin 32.7 pg (27.0-31.0); Mean Corpuscular Volume 95.9 fL (78.0-98.0); Mean Platelet Volume 9.3 fL (7.4-10.4); Platelet Count 271 thou/uL (130-400); RBC Distribution Width 12.4 % (11.5-14.5); Red Blood Cell (RBC) Count 4.82 mill/uL (4.70-6.10); White Blood Cell (WBC) Count 11.7 thou/uL (4.8-10.8)
[2020-06-18 02:26] LABS: ALT (SGPT) 28 U/L (8-55); AST (SGOT) 56 U/L (5-34); Albumin 4.5 g/dL (3.4-4.8); Alkaline Phosphatase 130 U/L (40-110); Anion Gap 23 mmol/L (10-20); BUN (Urea Nitrogen) 14 mg/dL (8.4-25.7); Bilirubin, Total 0.4 mg/dL (0.2-1.2); Calc. Creatinine Clearance 0 mL/min (70-130); Calcium 9.3 mg/dL (7.8-10.44); Carbon Dioxide 17 mmol/L (23-31); Chloride 101 mmol/L (98-107); Globulin 3.1 g/dL (2.4-3.5); Glucose 288 mg/dL (80-115); Potassium 4.9 mmol/L (3.5-5.1); Protein, Total 7.6 g/dL (5.8-8.1); Sodium 136 mmol/L (136-145)
[2020-06-18 02:37] LABS: CKMB 0.9 ng/mL (0-6.6)
[2020-06-18] MEDS ORDERED: Furosemide 40 MG/4 ML VIAL ONE (03:47)
[2020-06-18] MEDS ORDERED: Norepinephrine 8 MG/0.9% NS 0 ML ONE (04:29)
[2020-06-18] MEDS ORDERED: Norepinephrine 8 MG/0.9% NS 250 ML IVPB SCH (05:00)
[2020-06-18 05:18] LABS: SARS-CoV-2 NAA Rapid Test Not Detected (NotDetected)
[2020-06-18 05:52] LABS: Bilirubin Negative (Negative); Blood, Urine Negative (Negative); Clarity Clear (Clear); Glucose, Urine (Dipstick) Normal (Negative); Ketone, Urine Negative (Negative); Leukocyte Negative Leu/uL (Negative); Nitrite Negative (Negative); Protein, Urine (Dipstick) Negative (Neg-Trace); Specific Gravity, Urine 1.006 (1.002-1.036); Urobilinogen Normal mg/dL (Less than 2); pH, Urine 6.5 (5.0-9.0)
[2020-06-18] MEDS ORDERED: Aspirin 325 mg Enteric Coated Tablet PO SCH (07:10)
[2020-06-18 07:23] VITALS: BMI 21.7
[2020-06-18] MEDS ORDERED: Enoxaparin Sodium 80 MG/0.8 ML SYRINGE SC SCH (07:45)
[2020-06-18 08:12] LABS: Troponin I 0.869 ng/mL (< 0.028)
[2020-06-18] MEDS ORDERED: Enoxaparin Sodium 40 MG/0.4 ML SYRINGE SC SCH (09:00)
[2020-06-18] MEDS: methylPREDNISolone Sod Succ 40 MG VIAL IVP SCH (09:55)
[2020-06-18] MEDS: cefTRIAXone\\ROCEPHIN 1 GM in Sodium Chloride 0.9% 100 ML IVPB SCH (10:01)
[2020-06-18] MEDS ORDERED: Furosemide 40 MG/4 ML VIAL SLOW IVP SCH (10:15)
[2020-06-18] MEDS ORDERED: Clopidogrel Bisulfate 300 MG TAB PO SCH (10:15)
[2020-06-18] MEDS: Furosemide 20 MG/2 ML VIAL SLOW IVP SCH (15:36)
[2020-06-18] MEDS ORDERED: Potassium Chloride 20 MEQ TAB PO SCH (18:00)
[2020-06-18] MEDS ORDERED: Furosemide 20 MG/2 ML VIAL SLOW IVP SCH (18:00)
[2020-06-18] MEDS: Enoxaparin Sodium 80 MG/0.8 ML SYRINGE SC SCH (21:58)
[2020-06-19 05:31] LABS: #Lymphocytes 0.9 thou/uL (1.20-3.40); #Monocytes 0.7 thou/uL (0.11-0.59); #Neutrophils 5.3 thou/uL (1.40-6.50); %Basophils 0.2 % (0.0-1.0); %Eosinophils 0.1 % (0.0-10.0); %Lymphocytes 12.8 % (21.0-51.0); %Monocytes 10.7 % (0.0-10.0); %Neutrophils 76.2 % (42.0-75.0); Mean Corpuscular HGB CONC 34.4 g/dL (32.0-36.0); Mean Corpuscular Hemoglobin 32.5 pg (27.0-31.0); Mean Corpuscular Volume 94.5 fL (78.0-98.0); Platelet Count 162 thou/uL (130-400); RBC Distribution Width 12.7 % (11.5-14.5); White Blood Cell (WBC) Count 6.9 thou/uL (4.8-10.8)
[2020-06-19] MEDS: Furosemide 20 MG/2 ML VIAL SLOW IVP SCH (05:42)
[2020-06-19] MEDS: methylPREDNISolone Sod Succ 40 MG VIAL IVP SCH (05:42)
[2020-06-19] MEDS: cefTRIAXone\\ROCEPHIN 1 GM in Sodium Chloride 0.9% 100 ML IVPB SCH (05:42)
[2020-06-19 05:52] LABS: Anion Gap 16 mmol/L (10-20); BUN (Urea Nitrogen) 15 mg/dL (8.4-25.7); Calc. Creatinine Clearance 91 mL/min (70-130); Calcium 8.5 mg/dL (7.8-10.44); Carbon Dioxide 22 mmol/L (23-31); Chloride 99 mmol/L (98-107); Glucose 106 mg/dL (80-115); Potassium 4.3 mmol/L (3.5-5.1); Sodium 133 mmol/L (136-145)
[2020-06-19] MEDS: Aspirin 81 mg Enteric Coated Tablet PO SCH (08:35)
[2020-06-19] MEDS: Clopidogrel Bisulfate 75 MG TAB PO SCH (08:35)
[2020-06-19] MEDS: Enoxaparin Sodium 80 MG/0.8 ML SYRINGE SC SCH (08:35)
[2020-06-19] MEDS ORDERED: Sacubitril 49 MG/Valsartan 51 MG TABLET PO SCH ×2 (13:08→13:45)
[2020-06-19] MEDS ORDERED: Carvedilol 6.25 MG TAB PO SCH ×2 (13:30→13:45)
[2020-06-19] MEDS: Carvedilol 6.25 MG TAB PO SCH (17:59)
[2020-06-19] MEDS: Sacubitril 49 MG/Valsartan 51 MG TABLET PO SCH (21:41)
[2020-06-20] MEDS: Carvedilol 6.25 MG TAB PO SCH ×2 (05:25→19:23)
[2020-06-20 07:15] LABS: #Eosinphils 0.1 thou/uL (0.0-0.7); #Lymphocytes 1.3 thou/uL (1.20-3.40); #Monocytes 0.5 thou/uL (0.11-0.59); #Neutrophils 3.3 thou/uL (1.40-6.50); %Basophils 0.7 % (0.0-1.0); %Eosinophils 1.2 % (0.0-10.0); %Lymphocytes 24.6 % (21.0-51.0); %Monocytes 9.3 % (0.0-10.0); %Neutrophils 64.2 % (42.0-75.0); Hemoglobin 13.1 g/dL (14.0-18.0); Mean Corpuscular HGB CONC 33.6 g/dL (32.0-36.0); Mean Corpuscular Hemoglobin 31.7 pg (27.0-31.0); Mean Corpuscular Volume 94.3 fL (78.0-98.0); Mean Platelet Volume 8.9 fL (7.4-10.4); Platelet Count 150 thou/uL (130-400); RBC Distribution Width 12.6 % (11.5-14.5); Red Blood Cell (RBC) Count 4.13 mill/uL (4.70-6.10); White Blood Cell (WBC) Count 5.1 thou/uL (4.8-10.8)
[2020-06-20 07:40] LABS: Anion Gap 14 mmol/L (10-20); BUN (Urea Nitrogen) 11 mg/dL (8.4-25.7); Calc. Creatinine Clearance 101 mL/min (70-130); Calcium 8.2 mg/dL (7.8-10.44); Carbon Dioxide 24 mmol/L (23-31); Chloride 98 mmol/L (98-107); Glucose 92 mg/dL (80-115); Potassium 3.7 mmol/L (3.5-5.1); Sodium 132 mmol/L (136-145)
[2020-06-20] MEDS: Sacubitril 49 MG/Valsartan 51 MG TABLET PO SCH (07:53)
[2020-06-20] MEDS: Aspirin 81 mg Enteric Coated Tablet PO SCH (07:54)
[2020-06-20] MEDS: Clopidogrel Bisulfate 75 MG TAB PO SCH (07:54)
[2020-06-20] MEDS ORDERED: Enoxaparin Sodium 40 MG/0.4 ML SYRINGE SC SCH (09:00)
[2020-06-20] MEDS ORDERED: PHENYLEPHRINE-NS 100 MCG/ML 10 ML SYRINGE ONE (09:24)
[2020-06-20] MEDS ORDERED: Glycopyrrolate 0.2 MG/ML 5 ML SYRINGE ONE (09:24)
[2020-06-20] MEDS ORDERED: Dexamethasone 20 MG/5 ML VIAL ONE (09:24)
[2020-06-20] MEDS ORDERED: Ondansetron PF 4 MG/2 ML Vial ONE ×2 (09:24→14:19)
[2020-06-20] MEDS ORDERED: PROPOFOL 200 MG/20 ML VIAL ONE (09:24)
[2020-06-20] MEDS ORDERED: ePHEDrine 50 MG/ML VIAL ONE (09:24)
[2020-06-20] MEDS ORDERED: Rocuronium Bromide 10 MG/ML (10ML VIAL) ONE (09:24)
[2020-06-20] MEDS ORDERED: Gentamicin 80 MG/2 ML VIAL ONE (14:13)
[2020-06-20] MEDS ORDERED: CEFAZOLIN 1 GM VIAL ONE (14:13)
[2020-06-20] MEDS ORDERED: Propofol 500 MG/50 ML VIAL ONE (14:23)
[2020-06-20] MEDS ORDERED: Isoproterenol 0.2 MG/1 ML AMP ONE (14:40)
[2020-06-20] MEDS ORDERED: Fentanyl 100 MCG/2 ML VIAL ONE (14:44)
[2020-06-20] MEDS ORDERED: Lidocaine 1% (PF) 30 ML VIAL ONE (14:45)
[2020-06-20] MEDS ORDERED: Acetaminophen/Codeine 30-300mg Tablet PO PRN ×2 (18:00)
[2020-06-20] MEDS: Sotalol HCl 80 MG TAB PO SCH (20:13)
[2020-06-20] MEDS: ceFAZolin 1 GM/D5W 1 GM in Premix Bag 1 BAG IVPB SCH (21:58)
[2020-06-20] MEDS ORDERED: CEFAZOLIN 1 GM in Sodium Chloride 0.9% 100 ML IVPB SCH (22:00)
[2020-06-21] MEDS: ceFAZolin 1 GM/D5W 1 GM in Premix Bag 1 BAG IVPB SCH (05:37)
[2020-06-21 06:34] LABS: Anion Gap 14 mmol/L (10-20); BUN (Urea Nitrogen) 10 mg/dL (8.4-25.7); Calc. Creatinine Clearance 94 mL/min (70-130); Calcium 8.2 mg/dL (7.8-10.44); Carbon Dioxide 21 mmol/L (23-31); Chloride 101 mmol/L (98-107); Glucose 111 mg/dL (80-115); Magnesium 2.1 mg/dL (1.6-2.6); Potassium 5.1 mmol/L (3.5-5.1); Sodium 131 mmol/L (136-145)
[2020-06-21 07:27] LABS: #Lymphocytes 0.5 thou/uL (1.20-3.40); #Monocytes 0.7 thou/uL (0.11-0.59); #Neutrophils 7.8 thou/uL (1.40-6.50); %Basophils 0.2 % (0.0-1.0); %Lymphocytes 5.6 % (21.0-51.0); %Monocytes 7.8 % (0.0-10.0); %Neutrophils 86.4 % (42.0-75.0); Hemoglobin 13.5 g/dL (14.0-18.0); Mean Corpuscular Hemoglobin 31.9 pg (27.0-31.0); Mean Corpuscular Volume 96.7 fL (78.0-98.0); Mean Platelet Volume 9.2 fL (7.4-10.4); Platelet Count 204 thou/uL (130-400); RBC Distribution Width 12.6 % (11.5-14.5); Red Blood Cell (RBC) Count 4.24 mill/uL (4.70-6.10); White Blood Cell (WBC) Count 9.1 thou/uL (4.8-10.8)
[2020-06-21] MEDS: Clopidogrel Bisulfate 75 MG TAB PO SCH (08:40)
[2020-06-21] MEDS: Aspirin 81 mg Enteric Coated Tablet PO SCH (08:40)
[2020-06-21] MEDS: Sacubitril 49 MG/Valsartan 51 MG TABLET PO SCH ×2 (08:40→21:21)
[2020-06-21] MEDS: Sotalol HCl 80 MG TAB PO SCH ×2 (08:41→21:22)
[2020-06-21] MEDS: Cephalexin 250 MG CAP PO SCH ×3 (12:29→21:21)
[2020-06-22 05:28] LABS: #Basophils 0.1 thou/uL (0.0-0.2); #Eosinphils 0.1 thou/uL (0.0-0.7); #Lymphocytes 1.6 thou/uL (1.20-3.40); #Monocytes 0.5 thou/uL (0.11-0.59); #Neutrophils 3.2 thou/uL (1.40-6.50); %Basophils 1.1 % (0.0-1.0); %Eosinophils 2.7 % (0.0-10.0); %Lymphocytes 28.8 % (21.0-51.0); %Monocytes 9.7 % (0.0-10.0); %Neutrophils 57.7 % (42.0-75.0); Hemoglobin 12.3 g/dL (14.0-18.0); Mean Corpuscular HGB CONC 34.8 g/dL (32.0-36.0); Mean Corpuscular Hemoglobin 32.6 pg (27.0-31.0); Mean Corpuscular Volume 93.8 fL (78.0-98.0); Mean Platelet Volume 8.4 fL (7.4-10.4); Platelet Count 137 thou/uL (130-400); RBC Distribution Width 12.6 % (11.5-14.5); Red Blood Cell (RBC) Count 3.77 mill/uL (4.70-6.10); White Blood Cell (WBC) Count 5.5 thou/uL (4.8-10.8)
[2020-06-22 05:53] LABS: Anion Gap 12 mmol/L (10-20); BUN (Urea Nitrogen) 10 mg/dL (8.4-25.7); Calc. Creatinine Clearance 103 mL/min (70-130); Calcium 8.2 mg/dL (7.8-10.44); Carbon Dioxide 25 mmol/L (23-31); Chloride 101 mmol/L (98-107); Glucose 92 mg/dL (80-115); Magnesium 2.1 mg/dL (1.6-2.6); Potassium 3.4 mmol/L (3.5-5.1); Sodium 135 mmol/L (136-145)
[2020-06-22] MEDS: Enoxaparin Sodium 40 MG/0.4 ML SYRINGE SC SCH (09:13)
[2020-06-22] MEDS: Sotalol HCl 80 MG TAB PO SCH ×2 (09:14→21:02)
[2020-06-22] MEDS: Sacubitril 49 MG/Valsartan 51 MG TABLET PO SCH ×2 (09:14→21:02)
[2020-06-22] MEDS: Cephalexin 250 MG CAP PO SCH ×4 (09:14→21:02)
[2020-06-22] MEDS: Clopidogrel Bisulfate 75 MG TAB PO SCH (09:14)
[2020-06-22] MEDS: Aspirin 81 mg Enteric Coated Tablet PO SCH (09:14)
[2020-06-22] MEDS ORDERED: Potassium Chloride 20 MEQ TAB PO SCH (15:15)
[2020-06-23 05:21] LABS: #Eosinphils 0.2 thou/uL (0.0-0.7); #Lymphocytes 1.5 thou/uL (1.20-3.40); #Monocytes 0.5 thou/uL (0.11-0.59); #Neutrophils 2.9 thou/uL (1.40-6.50); %Basophils 0.9 % (0.0-1.0); %Lymphocytes 28.6 % (21.0-51.0); %Monocytes 9.9 % (0.0-10.0); %Neutrophils 56.6 % (42.0-75.0); Hemoglobin 12.3 g/dL (14.0-18.0); Mean Corpuscular HGB CONC 33.8 g/dL (32.0-36.0); Mean Corpuscular Hemoglobin 31.7 pg (27.0-31.0); Mean Corpuscular Volume 93.8 fL (78.0-98.0); Mean Platelet Volume 8.7 fL (7.4-10.4); Platelet Count 146 thou/uL (130-400); RBC Distribution Width 12.7 % (11.5-14.5); Red Blood Cell (RBC) Count 3.87 mill/uL (4.70-6.10); White Blood Cell (WBC) Count 5.2 thou/uL (4.8-10.8)
[2020-06-23 05:45] LABS: Anion Gap 11 mmol/L (10-20); BUN (Urea Nitrogen) 9 mg/dL (8.4-25.7); Calc. Creatinine Clearance 99 mL/min (70-130); Calcium 8.4 mg/dL (7.8-10.44); Carbon Dioxide 27 mmol/L (23-31); Chloride 103 mmol/L (98-107); Glucose 89 mg/dL (80-115); Magnesium 2.1 mg/dL (1.6-2.6); Sodium 137 mmol/L (136-145)
[2020-06-23] MEDS: Aspirin 81 mg Enteric Coated Tablet PO SCH (09:17)
[2020-06-23] MEDS: Cephalexin 250 MG CAP PO SCH ×2 (09:18→12:47)
[2020-06-23] MEDS: Enoxaparin Sodium 40 MG/0.4 ML SYRINGE SC SCH (09:19)
[2020-06-23] MEDS: Clopidogrel Bisulfate 75 MG TAB PO SCH (09:19)
[2020-06-23] MEDS: Sacubitril 49 MG/Valsartan 51 MG TABLET PO SCH (09:21)
[2020-06-23] MEDS: Sotalol HCl 80 MG TAB PO SCH (09:22)
[2020-06-23 12:12] VITALS: TEMP 98.6
[2020-06-23 13:15] VITALS: BP 160/90
== END 2020-06-23 15:21 | disposition home or self-care (01) | DRG 226 ==
LOC: ERS 01:17 → 3SE 03:23
PROVIDERS: ADMIT Student in an Organized Health Care Education/Training Program; ATTEND Internal Medicine
PROC: 5A09357 Assistance with Respiratory Ventilation, Less than 24 Consecutive Hours, Continuous Positive Airway Pressure (ICD-10-PCS; 2020-06-18)
PROC: 4A023FZ Measurement of Cardiac Rhythm, Percutaneous Approach (ICD-10-PCS; principal; 2020-06-19)
PROC: 4A0234Z Measurement of Cardiac Electrical Activity, Percutaneous Approach (ICD-10-PCS; 2020-06-19)
PROC: 02K83ZZ Map Conduction Mechanism, Percutaneous Approach (ICD-10-PCS; 2020-06-19)
PROC: 3E033XZ Introduction of Vasopressor into Peripheral Vein, Percutaneous Approach (ICD-10-PCS; 2020-06-19)
PROC: 0JH608Z Insertion of Defibrillator Generator into Chest Subcutaneous Tissue and Fascia, Open Approach (ICD-10-PCS; 2020-06-20)
PROC: 02HK3KZ Insertion of Defibrillator Lead into Right Ventricle, Percutaneous Approach (ICD-10-PCS; 2020-06-20)
PROC: 02H63KZ Insertion of Defibrillator Lead into Right Atrium, Percutaneous Approach (ICD-10-PCS; 2020-06-20)
DX: I11.0 Hypertensive heart disease with heart failure (principal); I21.4 Non-ST elevation (NSTEMI) myocardial infarction; J96.01 Acute respiratory failure with hypoxia; I49.02 Ventricular flutter; I47.1 Supraventricular tachycardia; J44.1 Chronic obstructive pulmonary disease with (acute) exacerbation; N17.9 Acute kidney failure, unspecified; Z20.822 Contact with and (suspected) exposure to COVID-19; I50.23 Acute on chronic systolic (congestive) heart failure; I25.110 Atherosclerotic heart disease of native coronary artery with unstable angina pectoris; F17.210 Nicotine dependence, cigarettes, uncomplicated; I95.9 Hypotension, unspecified; I25.5 Ischemic cardiomyopathy; E78.5 Hyperlipidemia, unspecified; I49.3 Ventricular premature depolarization; E87.6 Hypokalemia; Z95.1 Presence of aortocoronary bypass graft; Z95.5 Presence of coronary angioplasty implant and graft; Z91.041 Radiographic dye allergy status; Z79.899 Other long term (current) drug therapy; Z79.82 Long term (current) use of aspirin
CPT/HCPCS: 0240U; 33208; 33249; 36415; 36416; 71045; 76942; 80048; 80053; 81003; 82553; 83735; 83880; 84132; 84484; 85025; 93005; 93010; 93306; 93613; 93620; 93623; 93798; 94640; 94660; 94760; 96374; C1721; C1732; C1777; C1898; J0690; J0696; J1100; J1580; J1650; J1940; J2001; J2405; J2704; J2920; J3010; J3490; J7620

== ENCOUNTER 2020-07-26 18:02 | Observation (INO) | payer BC ==
[2020-07-26 21:48] LABS: #Basophils 0.1 thou/uL (0.0-0.2); #Eosinphils 0.1 thou/uL (0.0-0.7); #Lymphocytes 1.4 thou/uL (1.20-3.40); #Monocytes 0.8 thou/uL (0.11-0.59); #Neutrophils 4.7 thou/uL (1.40-6.50); %Eosinophils 2.1 % (0.0-10.0); %Lymphocytes 19.5 % (21.0-51.0); %Monocytes 11.5 % (0.0-10.0); Hemoglobin 16.1 g/dL (14.0-18.0); Mean Corpuscular HGB CONC 34.5 g/dL (32.0-36.0); Mean Corpuscular Hemoglobin 32.5 pg (27.0-31.0); Mean Corpuscular Volume 94.1 fL (78.0-98.0); Mean Platelet Volume 7.9 fL (7.4-10.4); Platelet Count 210 thou/uL (130-400); RBC Distribution Width 14.5 % (11.5-14.5); Red Blood Cell (RBC) Count 4.95 mill/uL (4.70-6.10); White Blood Cell (WBC) Count 7.2 thou/uL (4.8-10.8)
[2020-07-26 22:51] LABS: Albumin 4.7 g/dL (3.4-4.8)
[2020-07-26 22:52] LABS: Chloride 93 mmol/L (98-107); Potassium 4.6 mmol/L (3.5-5.1); Sodium 127 mmol/L (136-145)
[2020-07-26 22:53] LABS: Calcium 9.2 mg/dL (7.8-10.44); Glucose 86 mg/dL (80-115)
[2020-07-26 22:54] LABS: Globulin 2.6 g/dL (2.4-3.5); Protein, Total 7.3 g/dL (5.8-8.1)
[2020-07-26 22:55] LABS: Anion Gap 17 mmol/L (10-20); Carbon Dioxide 22 mmol/L (23-31)
[2020-07-26 22:56] LABS: Alkaline Phosphatase 80 U/L (40-110)
[2020-07-26 22:57] LABS: Calc. Creatinine Clearance 0 mL/min (70-130)
[2020-07-26 22:58] LABS: BUN (Urea Nitrogen) 11 mg/dL (8.4-25.7)
[2020-07-26 22:59] LABS: ALT (SGPT) 9 U/L (8-55); AST (SGOT) 18 U/L (5-34); Magnesium 1.8 mg/dL (1.6-2.6)
[2020-07-26] MEDS ORDERED: Magnesium 2 GM/50 ML 2 GM in Premix Bag 1 BAG IVPB SCH (23:45)
[2020-07-27] MEDS ORDERED: Magnesium 2 GM/50 ML BAG (IN WATER) ONE (00:08)
[2020-07-27] MEDS ORDERED: Acetaminophen 325 MG TAB PO PRN (00:20)
[2020-07-27] MEDS ORDERED: Acetaminophen 650 MG Suppository PR PRN (00:20)
[2020-07-27] MEDS: Sodium Chloride 0.9% 1,000 ML IV SCH (00:25)
[2020-07-27] MEDS: Dextrose 5 %-0.45 % NaCl 1,000 ML IV SCH ×2 (02:12→17:27)
[2020-07-27 03:15] LABS: #Basophils 0.1 thou/uL (0.0-0.2); #Eosinphils 0.2 thou/uL (0.0-0.7); #Lymphocytes 1.6 thou/uL (1.20-3.40); #Monocytes 0.8 thou/uL (0.11-0.59); #Neutrophils 3.8 thou/uL (1.40-6.50); %Basophils 1.1 % (0.0-1.0); %Eosinophils 2.4 % (0.0-10.0); %Lymphocytes 24.5 % (21.0-51.0); %Monocytes 12.8 % (0.0-10.0); %Neutrophils 59.2 % (42.0-75.0); Hemoglobin 15.7 g/dL (14.0-18.0); Mean Corpuscular HGB CONC 35.4 g/dL (32.0-36.0); Mean Corpuscular Hemoglobin 33.2 pg (27.0-31.0); Mean Platelet Volume 7.8 fL (7.4-10.4); Platelet Count 189 thou/uL (130-400); RBC Distribution Width 14.5 % (11.5-14.5); Red Blood Cell (RBC) Count 4.72 mill/uL (4.70-6.10); White Blood Cell (WBC) Count 6.5 thou/uL (4.8-10.8)
[2020-07-27 03:34] LABS: Albumin 4.4 g/dL (3.4-4.8)
[2020-07-27 03:35] LABS: Chloride 98 mmol/L (98-107); Potassium 4.2 mmol/L (3.5-5.1); Sodium 129 mmol/L (136-145)
[2020-07-27 03:36] LABS: Globulin 2.7 g/dL (2.4-3.5); Glucose 87 mg/dL (80-115); Protein, Total 7.1 g/dL (5.8-8.1)
[2020-07-27 03:38] LABS: Anion Gap 17 mmol/L (10-20); Bilirubin, Total 0.7 mg/dL (0.2-1.2); Carbon Dioxide 18 mmol/L (23-31)
[2020-07-27 03:39] LABS: Alkaline Phosphatase 76 U/L (40-110)
[2020-07-27 03:40] LABS: BUN (Urea Nitrogen) 12 mg/dL (8.4-25.7); Calc. Creatinine Clearance 0 mL/min (70-130)
[2020-07-27 03:41] LABS: AST (SGOT) 19 U/L (5-34)
[2020-07-27 03:42] LABS: ALT (SGPT) 11 U/L (8-55); Magnesium 2.7 mg/dL (1.6-2.6)
[2020-07-27 04:36] LABS: SARS-CoV-2 PCR by NAA Not Detected (NotDetected)
[2020-07-27] MEDS ORDERED: Lidocaine 1% (PF) 30 ML VIAL ONE (08:54)
[2020-07-27] MEDS ORDERED: Famotidine/PF 20 mg/2ml Vial SLOW IVP SCH (09:00)
[2020-07-27] MEDS ORDERED: Propofol 1,000 MG/100 ML VIAL IV ONE (09:03)
[2020-07-27] MEDS ORDERED: Fentanyl 100 MCG/2 ML VIAL ONE (09:03)
[2020-07-27] MEDS ORDERED: Midazolam HCl 2 mg/2 ml Vial ONE (09:03)
[2020-07-27] MEDS ORDERED: PHENYLEPHRINE-NS 100 MCG/ML 10 ML SYRINGE ONE ×2 (09:13)
[2020-07-27] MEDS ORDERED: Famotidine/PF 20 mg/2ml Vial ONE (12:40)
[2020-07-27 12:53] LABS: Anion Gap 17 mmol/L (10-20); BUN (Urea Nitrogen) 11 mg/dL (8.4-25.7); Calc. Creatinine Clearance 0 mL/min (70-130); Calcium 8.9 mg/dL (7.8-10.44); Carbon Dioxide 20 mmol/L (23-31); Chloride 97 mmol/L (98-107); Glucose 88 mg/dL (80-115); Potassium 4.7 mmol/L (3.5-5.1); Sodium 129 mmol/L (136-145)
[2020-07-27 20:07] LABS: Potassium, Urine 37.4 mmol/L
[2020-07-27] MEDS: Famotidine 20 MG TAB PO SCH (20:39)
[2020-07-27] MEDS: Sotalol HCl 80 MG TAB PO SCH (20:39)
[2020-07-27] MEDS ORDERED: Atorvastatin Calcium 40 MG TAB PO SCH (21:00)
[2020-07-28] MEDS: Sodium Chloride 0.9% 1,000 ML IV SCH (02:09)
[2020-07-28 08:31] LABS: Anion Gap 11 mmol/L (10-20); BUN (Urea Nitrogen) 9 mg/dL (8.4-25.7); Calc. Creatinine Clearance 97 mL/min (70-130); Calcium 8.6 mg/dL (7.8-10.44); Carbon Dioxide 25 mmol/L (23-31); Chloride 98 mmol/L (98-107); Glucose 115 mg/dL (80-115); Potassium 4.7 mmol/L (3.5-5.1); Sodium 129 mmol/L (136-145)
[2020-07-28] MEDS: Sotalol HCl 80 MG TAB PO SCH (08:36)
[2020-07-28] MEDS: Famotidine 20 MG TAB PO SCH (08:36)
[2020-07-28] MEDS ORDERED: Aspirin 81 mg Enteric Coated Tablet PO SCH (09:00)
[2020-07-28] MEDS ORDERED: Clopidogrel Bisulfate 75 MG TAB PO SCH (09:00)
[2020-07-28] MEDS ORDERED: Carvedilol 6.25 MG TAB PO SCH ×2 (10:45→21:00)
[2020-07-28 12:04] VITALS: BMI 22.0
[2020-07-28 13:00] VITALS: BP 149/79; TEMP 97.9
[2020-07-28 13:37] LABS: Anion Gap 14 mmol/L (10-20); BUN (Urea Nitrogen) 9 mg/dL (8.4-25.7); Calc. Creatinine Clearance 84 mL/min (70-130); Calcium 8.8 mg/dL (7.8-10.44); Carbon Dioxide 23 mmol/L (23-31); Chloride 97 mmol/L (98-107); Glucose 128 mg/dL (80-115); Potassium 4.4 mmol/L (3.5-5.1); Sodium 130 mmol/L (136-145)
[2020-07-28] MEDS ORDERED: Sacubitril 49 MG/Valsartan 51 MG TABLET PO SCH (21:00)
== END 2020-07-28 15:09 | disposition home or self-care (01) ==
LOC: ERS 18:02 → ERHOLD 21:26 → 2SW 21:26
PROVIDERS: ADMIT Internal Medicine; ATTEND Family Medicine
PROC: 4A023FZ Measurement of Cardiac Rhythm, Percutaneous Approach (ICD-10-PCS; principal; 2020-07-27)
PROC: 4A0234Z Measurement of Cardiac Electrical Activity, Percutaneous Approach (ICD-10-PCS; 2020-07-27)
DX: T82.118A Breakdown (mechanical) of other cardiac electronic device, initial encounter (principal); R19.7 Diarrhea, unspecified; E86.0 Dehydration; E87.1 Hypo-osmolality and hyponatremia; I11.0 Hypertensive heart disease with heart failure; I50.42 Chronic combined systolic (congestive) and diastolic (congestive) heart failure; E78.5 Hyperlipidemia, unspecified; I47.1 Supraventricular tachycardia; I25.5 Ischemic cardiomyopathy; J44.9 Chronic obstructive pulmonary disease, unspecified; I25.10 Atherosclerotic heart disease of native coronary artery without angina pectoris; I95.9 Hypotension, unspecified; Z87.891 Personal history of nicotine dependence; Z79.02 Long term (current) use of antithrombotics/antiplatelets; Z79.82 Long term (current) use of aspirin; Z79.899 Other long term (current) drug therapy; Z91.041 Radiographic dye allergy status; Z95.1 Presence of aortocoronary bypass graft; Z20.822 Contact with and (suspected) exposure to COVID-19
CPT/HCPCS: 36415; 36416; 71045; 80048; 80053; 82436; 82550; 83605; 83735; 83880; 83930; 83935; 84133; 84300; 84484; 85025; 87635; 93005; 93640; 96374; G0378; J2001; J2250; J2704; J3010; J3475; S0028; U0003; U0005

== ENCOUNTER 2020-09-13 07:53 | Emergency (ER) | payer BC ==
[2020-09-13 08:24] LABS: Mean Corpuscular HGB CONC 34.7 g/dL (32.0-36.0); Mean Corpuscular Hemoglobin 32.4 pg (27.0-31.0); Mean Corpuscular Volume 93.4 fL (78.0-98.0); Mean Platelet Volume 8.5 fL (7.4-10.4); Platelet Count 242 thou/uL (130-400); RBC Distribution Width 12.6 % (11.5-14.5); Red Blood Cell (RBC) Count 4.62 mill/uL (4.70-6.10); White Blood Cell (WBC) Count 5.7 thou/uL (4.8-10.8)
[2020-09-13 08:33] LABS: Bilirubin Negative (Negative); Blood, Urine Negative (Negative); Clarity Clear (Clear); Glucose, Urine (Dipstick) Normal (Negative); Ketone, Urine Negative (Negative); Leukocyte Negative Leu/uL (Negative); Nitrite Negative (Negative); Protein, Urine (Dipstick) Negative (Neg-Trace); Specific Gravity, Urine 1.011 (1.002-1.036); Urobilinogen Normal mg/dL (Less than 2)
[2020-09-13 08:44] LABS: ALT (SGPT) 11 U/L (8-55); AST (SGOT) 13 U/L (5-34); Albumin 4.6 g/dL (3.4-4.8); Alkaline Phosphatase 80 U/L (40-110); Anion Gap 15 mmol/L (10-20); BUN (Urea Nitrogen) 13 mg/dL (8.4-25.7); Calc. Creatinine Clearance 0 mL/min (70-130); Calcium 9.1 mg/dL (7.8-10.44); Carbon Dioxide 24 mmol/L (23-31); Chloride 97 mmol/L (98-107); Globulin 2.6 g/dL (2.4-3.5); Glucose 111 mg/dL (80-115); Lipase 5 U/L (8-78); Protein, Total 7.2 g/dL (5.8-8.1); Sodium 131 mmol/L (136-145)
[2020-09-13 08:46] LABS: Band 18 % (5-11); Eosinophils 5 % (0-10); Lymphocytes 7 % (21-51); MDiff Complete? YES; Monocytes 17 % (0-10); Neutrophil 53 % (42-75); Platelet Morphology Comment Appears Adequate; RBC Morphology Normal; Reflex for Review?? NO; Vacuoles MODERATE
[2020-09-13] MEDS ORDERED: methylPREDNISolone Sod Succ 40 MG VIAL ONE (09:07)
[2020-09-13] MEDS ORDERED: diphenhydrAMINE 50 MG/ML VIAL ONE (09:07)
[2020-09-13] MEDS ORDERED: Dicyclomine 20 MG TAB ONE (09:07)
[2020-09-13] MEDS ORDERED: Famotidine/PF 20 mg/2ml Vial ONE (09:07)
== END 2020-09-13 13:09 | disposition short-term general hospital (02) ==
LOC: ERS 07:53
DX: K56.7 Ileus, unspecified (principal); I10 Essential (primary) hypertension; F17.210 Nicotine dependence, cigarettes, uncomplicated; Z79.82 Long term (current) use of aspirin; Z79.899 Other long term (current) drug therapy
CPT/HCPCS: 36415; 74177; 80053; 81003; 83690; 85025; 93005; 96374; 96375; J1200; J2920; S0028

== ENCOUNTER 2020-10-05 14:08 | Inpatient (IN) | payer BC ==
[2020-10-05 15:01] LABS: #Basophils 0.1 thou/uL (0.0-0.2); #Eosinphils 0.1 thou/uL (0.0-0.7); #Lymphocytes 1.4 thou/uL (1.20-3.40); #Neutrophils 4.3 thou/uL (1.40-6.50); %Basophils 1.1 % (0.0-1.0); %Eosinophils 1.7 % (0.0-10.0); %Lymphocytes 20.7 % (21.0-51.0); %Monocytes 14.2 % (0.0-10.0); %Neutrophils 62.3 % (42.0-75.0); Hemoglobin 14.6 g/dL (14.0-18.0); Mean Corpuscular HGB CONC 34.3 g/dL (32.0-36.0); Mean Corpuscular Hemoglobin 31.4 pg (27.0-31.0); Mean Corpuscular Volume 91.6 fL (78.0-98.0); Mean Platelet Volume 8.1 fL (7.4-10.4); Platelet Count 290 thou/uL (130-400); RBC Distribution Width 12.8 % (11.5-14.5); Red Blood Cell (RBC) Count 4.66 mill/uL (4.70-6.10); White Blood Cell (WBC) Count 6.9 thou/uL (4.8-10.8)
[2020-10-05 15:22] LABS: ALT (SGPT) 12 U/L (8-55); AST (SGOT) 17 U/L (5-34); Albumin 4.9 g/dL (3.4-4.8); Alkaline Phosphatase 91 U/L (40-110); Anion Gap 18 mmol/L (10-20); BUN (Urea Nitrogen) 26 mg/dL (8.4-25.7); Calc. Creatinine Clearance 0 mL/min (70-130); Calcium 9.7 mg/dL (7.8-10.44); Carbon Dioxide 20 mmol/L (23-31); Chloride 93 mmol/L (98-107); Glucose 103 mg/dL (80-115); Potassium 5.6 mmol/L (3.5-5.1); Protein, Total 7.9 g/dL (5.8-8.1); Sodium 125 mmol/L (136-145)
[2020-10-05 15:24] LABS: Bilirubin Negative (Negative); Blood, Urine Negative (Negative); Clarity Clear (Clear); Glucose, Urine (Dipstick) Normal (Negative); Ketone, Urine Trace mg/dL (Negative); Leukocyte Negative Leu/uL (Negative); Nitrite Negative (Negative); Protein, Urine (Dipstick) 20 mg/dL (Neg-Trace); Urobilinogen Normal mg/dL (Less than 2); pH, Urine 5.5 (5.0-9.0)
[2020-10-05] MEDS ORDERED: Ondansetron PF 4 MG/2 ML Vial IVP PRN (17:16)
[2020-10-05] MEDS ORDERED: Enoxaparin Sodium 40 MG/0.4 ML SYRINGE SC SCH (17:30)
[2020-10-05 20:42] VITALS: BMI 20.4
[2020-10-05] MEDS: Famotidine/PF 20 mg/2ml Vial SLOW IVP SCH (20:52)
[2020-10-05] MEDS: Sotalol HCl 80 MG TAB PO SCH (20:53)
[2020-10-05] MEDS: Atorvastatin Calcium 40 MG TAB PO SCH (20:54)
[2020-10-05] MEDS ORDERED: Carvedilol 6.25 MG TAB PO SCH (21:00)
[2020-10-06 05:02] LABS: #Eosinphils 0.1 thou/uL (0.0-0.7); #Lymphocytes 1.1 thou/uL (1.20-3.40); #Monocytes 0.8 thou/uL (0.11-0.59); #Neutrophils 4.1 thou/uL (1.40-6.50); %Basophils 0.8 % (0.0-1.0); %Eosinophils 1.5 % (0.0-10.0); %Lymphocytes 17.6 % (21.0-51.0); %Monocytes 13.3 % (0.0-10.0); %Neutrophils 66.8 % (42.0-75.0); Hemoglobin 12.6 g/dL (14.0-18.0); Mean Corpuscular HGB CONC 34.1 g/dL (32.0-36.0); Mean Corpuscular Hemoglobin 31.5 pg (27.0-31.0); Mean Corpuscular Volume 92.4 fL (78.0-98.0); Mean Platelet Volume 7.8 fL (7.4-10.4); Platelet Count 224 thou/uL (130-400); RBC Distribution Width 12.9 % (11.5-14.5); White Blood Cell (WBC) Count 6.2 thou/uL (4.8-10.8)
[2020-10-06 05:19] LABS: Anion Gap 11 mmol/L (10-20); BUN (Urea Nitrogen) 17 mg/dL (8.4-25.7); Calc. Creatinine Clearance 89 mL/min (70-130); Calcium 8.3 mg/dL (7.8-10.44); Carbon Dioxide 19 mmol/L (23-31); Chloride 100 mmol/L (98-107); Glucose 103 mg/dL (80-115); Potassium 4.1 mmol/L (3.5-5.1); Sodium 126 mmol/L (136-145)
[2020-10-06] MEDS ORDERED: Sodium Chloride 0.9% 1,000 ML IV SCH (07:30)
[2020-10-06 08:05] LABS: SARS-CoV-2 NAA Rapid Test Not Detected (NotDetected)
[2020-10-06] MEDS: Sodium Bicarbonate Tab 325 MG TAB PO SCH ×3 (08:47→20:14)
[2020-10-06] MEDS: Aspirin 81 mg Enteric Coated Tablet PO SCH (08:47)
[2020-10-06] MEDS: Famotidine/PF 20 mg/2ml Vial SLOW IVP SCH ×2 (08:47→20:03)
[2020-10-06] MEDS: Clopidogrel Bisulfate 75 MG TAB PO SCH (08:48)
[2020-10-06] MEDS: Sodium Chloride 0.9% 1,000 ML IV SCH ×2 (08:48→21:05)
[2020-10-06] MEDS: Sotalol HCl 80 MG TAB PO SCH ×3 (08:48→20:14)
[2020-10-06] MEDS: Enoxaparin Sodium 40 MG/0.4 ML SYRINGE SC SCH (08:56)
[2020-10-06] MEDS: Cholestyramine/Aspartame 4 gm Packet PO SCH ×3 (11:27→21:09)
[2020-10-06] MEDS: Albumin 25% 25 GM/100 ML BOT IVPB SCH ×2 (11:28→20:03)
[2020-10-06] MEDS: Atorvastatin Calcium 40 MG TAB PO SCH ×2 (20:03→20:14)
[2020-10-06 20:35] LABS: Sodium 126 mmol/L (136-145)
[2020-10-07 05:02] LABS: Hemoglobin 12.8 g/dL (14.0-18.0)
[2020-10-07 05:21] LABS: Potassium 4.1 mmol/L (3.5-5.1)
[2020-10-07 07:43] LABS: ALT (SGPT) 7 U/L (8-55); AST (SGOT) 12 U/L (5-34); Albumin 4.1 g/dL (3.4-4.8); Alkaline Phosphatase 63 U/L (40-110); Anion Gap 13 mmol/L (10-20); BUN (Urea Nitrogen) 8 mg/dL (8.4-25.7); Bilirubin, Total 0.7 mg/dL (0.2-1.2); Calc. Creatinine Clearance 99 mL/min (70-130); Calcium 8.5 mg/dL (7.8-10.44); Carbon Dioxide 18 mmol/L (23-31); Chloride 103 mmol/L (98-107); Globulin 1.9 g/dL (2.4-3.5); Glucose 83 mg/dL (80-115); Potassium 4.2 mmol/L (3.5-5.1); Sodium 130 mmol/L (136-145)
[2020-10-07] MEDS: Famotidine/PF 20 mg/2ml Vial SLOW IVP SCH ×2 (08:55→21:38)
[2020-10-07] MEDS: Sotalol HCl 80 MG TAB PO SCH ×2 (08:55→21:37)
[2020-10-07] MEDS: Aspirin 81 mg Enteric Coated Tablet PO SCH (08:55)
[2020-10-07] MEDS: Sodium Bicarbonate Tab 325 MG TAB PO SCH ×2 (08:55→21:38)
[2020-10-07] MEDS: Clopidogrel Bisulfate 75 MG TAB PO SCH (08:55)
[2020-10-07] MEDS: Enoxaparin Sodium 40 MG/0.4 ML SYRINGE SC SCH (08:56)
[2020-10-07] MEDS: Cholestyramine/Aspartame 4 gm Packet PO SCH ×2 (11:31→21:38)
[2020-10-07] MEDS ORDERED: MD-Gastroview 120 ML BOT ONE (12:01)
[2020-10-07 17:01] LABS: Anion Gap 15 mmol/L (10-20); BUN (Urea Nitrogen) 7 mg/dL (8.4-25.7); Calc. Creatinine Clearance 81 mL/min (70-130); Carbon Dioxide 21 mmol/L (23-31); Chloride 99 mmol/L (98-107); Glucose 108 mg/dL (80-115); Potassium 3.8 mmol/L (3.5-5.1); Sodium 131 mmol/L (136-145)
[2020-10-07 17:16] LABS: EliA Celiac New Method **** NEW METHOD ****; t-Transglutaminase (tTG) IgA 0.5 EliAU/mL (<7 Negative)
[2020-10-07] MEDS: Atorvastatin Calcium 40 MG TAB PO SCH (21:37)
[2020-10-08] MEDS: Sodium Bicarbonate Tab 325 MG TAB PO SCH (07:59)
[2020-10-08] MEDS: Sotalol HCl 80 MG TAB PO SCH (07:59)
[2020-10-08] MEDS: Enoxaparin Sodium 40 MG/0.4 ML SYRINGE SC SCH (07:59)
[2020-10-08] MEDS: Clopidogrel Bisulfate 75 MG TAB PO SCH (07:59)
[2020-10-08] MEDS: Famotidine/PF 20 mg/2ml Vial SLOW IVP SCH (07:59)
[2020-10-08] MEDS: Aspirin 81 mg Enteric Coated Tablet PO SCH (07:59)
[2020-10-08 08:09] VITALS: BP 109/56; TEMP 99.6
[2020-10-08 08:58] LABS: Sodium 130 mmol/L (136-145)
[2020-10-08] MEDS ORDERED: Sodium Chloride 0.9% 1,000 ML IV SCH (11:15)
== END 2020-10-08 11:20 | disposition home or self-care (01) | DRG 388 ==
LOC: ERS 14:08 → 2NO 16:29
PROVIDERS: ADMIT Internal Medicine; ATTEND Internal Medicine
PROC: 0D9670Z Drainage of Stomach with Drainage Device, Via Natural or Artificial Opening (ICD-10-PCS; principal; 2020-10-06)
DX: K56.600 Partial intestinal obstruction, unspecified as to cause (principal); E43 Unspecified severe protein-calorie malnutrition; I50.42 Chronic combined systolic (congestive) and diastolic (congestive) heart failure; Z20.822 Contact with and (suspected) exposure to COVID-19; E87.1 Hypo-osmolality and hyponatremia; N17.9 Acute kidney failure, unspecified; I42.9 Cardiomyopathy, unspecified; E87.2 Acidosis; E87.5 Hyperkalemia; I48.91 Unspecified atrial fibrillation; D64.9 Anemia, unspecified; J44.9 Chronic obstructive pulmonary disease, unspecified; I11.0 Hypertensive heart disease with heart failure; F17.210 Nicotine dependence, cigarettes, uncomplicated; I25.10 Atherosclerotic heart disease of native coronary artery without angina pectoris; E86.0 Dehydration; I95.9 Hypotension, unspecified; Z95.810 Presence of automatic (implantable) cardiac defibrillator; Z95.5 Presence of coronary angioplasty implant and graft; Z95.1 Presence of aortocoronary bypass graft; Z91.041 Radiographic dye allergy status; Z79.01 Long term (current) use of anticoagulants; Z79.82 Long term (current) use of aspirin; Z79.899 Other long term (current) drug therapy; Z68.20 Body mass index [BMI] 20.0-20.9, adult
CPT/HCPCS: 36415; 71045; 74018; 74176; 74250; 80048; 80053; 81003; 82550; 83497; 83516; 83605; 83930; 83935; 84132; 84295; 84443; 84484; 85014; 85018; 85025; 87045; 87046; 87328; 87329; 87427; 87449; 93005; J1650; P9047; Q9963; S0028; U0002; U0005

== ENCOUNTER 2021-02-17 17:07 | Emergency (ER) | payer BC ==
[2021-02-17 17:48] LABS: #Basophils 0.1 thou/uL (0.0-0.2); #Eosinphils 0.2 thou/uL (0.0-0.7); #Lymphocytes 1.1 thou/uL (1.20-3.40); #Neutrophils 6.9 thou/uL (1.40-6.50); %Basophils 1.1 % (0.0-1.0); %Eosinophils 2.7 % (0.0-10.0); %Lymphocytes 11.3 % (21.0-51.0); %Neutrophils 73.9 % (42.0-75.0); Hemoglobin 15.9 g/dL (14.0-18.0); Mean Corpuscular HGB CONC 35.8 g/dL (32.0-36.0); Mean Corpuscular Hemoglobin 33.3 pg (27.0-31.0); Mean Corpuscular Volume 93.1 fL (78.0-98.0); Mean Platelet Volume 7.3 fL (7.4-10.4); Platelet Count 249 thou/uL (130-400); RBC Distribution Width 12.4 % (11.5-14.5); Red Blood Cell (RBC) Count 4.78 mill/uL (4.70-6.10); White Blood Cell (WBC) Count 9.4 thou/uL (4.8-10.8)
[2021-02-17 18:08] LABS: ALT (SGPT) 13 U/L (8-55); AST (SGOT) 17 U/L (5-34); Albumin 4.7 g/dL (3.4-4.8); Alkaline Phosphatase 85 U/L (40-110); Anion Gap 17 mmol/L (10-20); BUN (Urea Nitrogen) 12 mg/dL (8.4-25.7); Bilirubin, Total 0.6 mg/dL (0.2-1.2); CK (CPK) 63 U/L (30-200); Calc. Creatinine Clearance 0 mL/min (70-130); Calcium 9.6 mg/dL (7.8-10.44); Carbon Dioxide 25 mmol/L (23-31); Chloride 92 mmol/L (98-107); Globulin 2.7 g/dL (2.4-3.5); Glucose 94 mg/dL (80-115); Magnesium 1.8 mg/dL (1.6-2.6); Potassium 4.9 mmol/L (3.5-5.1); Protein, Total 7.4 g/dL (5.8-8.1); Sodium 129 mmol/L (136-145)
[2021-02-17] MEDS ORDERED: predniSONE 20 MG TAB ONE (19:34)
== END 2021-02-17 19:44 | disposition home or self-care (01) ==
LOC: ERS 17:07
DX: B34.9 Viral infection, unspecified (principal); Z20.822 Contact with and (suspected) exposure to COVID-19; I10 Essential (primary) hypertension; F17.210 Nicotine dependence, cigarettes, uncomplicated; Z79.899 Other long term (current) drug therapy
CPT/HCPCS: 36415; 71045; 80053; 82550; 83735; 84484; 85025; 93005; J7512

== ENCOUNTER 2021-03-25 12:21 | Outpatient (CLI) | payer BC | END 2021-03-25 12:22 | disposition home or self-care (01) | LOC: ULT 12:21 | PROVIDERS: ATTEND Family Medicine | DX: R06.00 Dyspnea, unspecified (principal); I34.0 Nonrheumatic mitral (valve) insufficiency | CPT/HCPCS: 93306 ==

== ENCOUNTER 2021-12-30 03:36 | Inpatient (IN) | payer BC ==
[2021-12-30 04:23] LABS: #Basophils 0.1 thou/uL (0.0-0.2); #Eosinphils 0.4 thou/uL (0.0-0.7); #Monocytes 0.8 thou/uL (0.11-0.59); #Neutrophils 8.7 thou/uL (1.40-6.50); %Basophils 0.9 % (0.0-1.0); %Lymphocytes 9.2 % (21.0-51.0); %Monocytes 7.5 % (0.0-10.0); %Neutrophils 78.4 % (42.0-75.0); Hemoglobin 13.9 g/dL (14.0-18.0); Mean Corpuscular HGB CONC 34.8 g/dL (32.0-36.0); Mean Corpuscular Hemoglobin 33.4 pg (27.0-31.0); Mean Corpuscular Volume 95.9 fL (78.0-98.0); Mean Platelet Volume 8.1 fL (7.4-10.4); Platelet Count 198 thou/uL (130-400); RBC Distribution Width 13.2 % (11.5-14.5); Red Blood Cell (RBC) Count 4.15 mill/uL (4.70-6.10); White Blood Cell (WBC) Count 11.1 thou/uL (4.8-10.8)
[2021-12-30] MEDS ORDERED: Albuterol Sulfate 2.5 mg/0.5 ml Neb ONE (04:33)
[2021-12-30] MEDS ORDERED: Dexamethasone 10 MG/ML VIAL ONE (04:33)
[2021-12-30] MEDS ORDERED: manNITOL 20% 0 ML ONE (04:46)
[2021-12-30 04:53] LABS: ALT (SGPT) 37 U/L (8-55); AST (SGOT) 53 U/L (5-34); Albumin 4.8 g/dL (3.4-4.8); Alkaline Phosphatase 90 U/L (40-110); Anion Gap 17 mmol/L (10-20); BUN (Urea Nitrogen) 12 mg/dL (8.4-25.7); Bilirubin, Total 0.8 mg/dL (0.2-1.2); CK (CPK) 76 U/L (30-200); Calc. Creatinine Clearance 0 mL/min (70-130); Calcium 9.5 mg/dL (7.8-10.44); Carbon Dioxide 22 mmol/L (23-31); Chloride 102 mmol/L (98-107); Estimated GFR 97; Globulin 2.8 g/dL (2.4-3.5); Glucose 108 mg/dL (80-115); Lipase 15 U/L (8-78); Protein, Total 7.6 g/dL (5.8-8.1); Sodium 137 mmol/L (136-145)
[2021-12-30] MEDS ORDERED: Magnesium 2 GM/50 ML(in water) 2 GM in Premix Bag 1 BAG IVPB SCH ×3 (05:00→18:15)
[2021-12-30 05:08] LABS: CKMB 1.9 ng/mL (0-6.6)
[2021-12-30] MEDS ORDERED: Furosemide 40 MG/4 ML VIAL ONE (05:08)
[2021-12-30] MEDS ORDERED: Nitroglycerin 2% Ointment 1 INCH/1 GM Packet ONE (05:08)
[2021-12-30] MEDS ORDERED: Aspirin Chewable 81 MG TAB ONE (05:08)
[2021-12-30 07:47] LABS: Troponin I 0.195 ng/mL (< 0.028)
[2021-12-30] MEDS ORDERED: Acetaminophen 650 MG Suppository PR PRN (09:16)
[2021-12-30] MEDS ORDERED: Ondansetron ODT 4 MG TAB PO PRN (09:16)
[2021-12-30] MEDS ORDERED: Acetaminophen 325 MG TAB PO PRN (09:16)
[2021-12-30] MEDS ORDERED: Ondansetron PF 4 MG/2 ML Vial IVP PRN (09:16)
[2021-12-30 09:38] LABS: Magnesium 1.9 mg/dL (1.6-2.6)
[2021-12-30 09:53] VITALS: BMI 21.6
[2021-12-30 10:25] LABS: SARS-CoV-2 NAA Rapid Test Not Detected (NotDetected)
[2021-12-30 10:34] LABS: Troponin I 0.194 ng/mL (< 0.028)
[2021-12-30] MEDS: Furosemide 20 MG/2 ML VIAL SLOW IVP SCH (15:48)
[2021-12-30] MEDS ORDERED: Empagliflozin 10 MG TAB PO SCH (17:15)
[2021-12-30] MEDS ORDERED: Potassium Chloride 20 MEQ TAB PO SCH (17:15)
[2021-12-30 18:07] LABS: Magnesium 2.1 mg/dL (1.6-2.6)
[2021-12-30] MEDS: Sotalol HCl 80 MG TAB PO SCH (20:39)
[2021-12-30] MEDS: Sacubitril 49 MG/Valsartan 51 MG TABLET PO SCH (20:39)
[2021-12-30] MEDS: Atorvastatin Calcium 40 MG TAB PO SCH (20:39)
[2021-12-30] MEDS: Enoxaparin Sodium 40 MG/0.4 ML SYRINGE SC SCH (20:42)
[2021-12-30] MEDS ORDERED: Carvedilol 6.25 MG TAB PO SCH (21:00)
[2021-12-30] MEDS: Carvedilol 6.25 MG TAB PO SCH (21:17)
[2021-12-31 04:46] LABS: #Lymphocytes 0.8 thou/uL (1.20-3.40); #Monocytes 0.8 thou/uL (0.11-0.59); #Neutrophils 6.5 thou/uL (1.40-6.50); %Basophils 0.1 % (0.0-1.0); %Eosinophils 0.2 % (0.0-10.0); %Lymphocytes 9.5 % (21.0-51.0); %Monocytes 9.5 % (0.0-10.0); %Neutrophils 80.7 % (42.0-75.0); Hemoglobin 11.7 g/dL (14.0-18.0); Mean Corpuscular HGB CONC 32.1 g/dL (32.0-36.0); Mean Corpuscular Volume 96.4 fL (78.0-98.0); Mean Platelet Volume 7.9 fL (7.4-10.4); Platelet Count 174 thou/uL (130-400); Red Blood Cell (RBC) Count 3.77 mill/uL (4.70-6.10)
[2021-12-31 05:16] LABS: Anion Gap 10 mmol/L (10-20); BUN (Urea Nitrogen) 12 mg/dL (8.4-25.7); Calc. Creatinine Clearance 89 mL/min (70-130); Calcium 8.7 mg/dL (7.8-10.44); Carbon Dioxide 27 mmol/L (23-31); Chloride 102 mmol/L (98-107); Estimated GFR 97; Glucose 110 mg/dL (80-115); Magnesium 2.6 mg/dL (1.6-2.6); Potassium 4.4 mmol/L (3.5-5.1); Sodium 135 mmol/L (136-145)
[2021-12-31] MEDS: Furosemide 20 MG/2 ML VIAL SLOW IVP SCH ×2 (05:21→13:31)
[2021-12-31] MEDS: Sacubitril 49 MG/Valsartan 51 MG TABLET PO SCH ×2 (08:45→20:58)
[2021-12-31] MEDS: Aspirin 81 mg Enteric Coated Tablet PO SCH (08:46)
[2021-12-31] MEDS: Carvedilol 6.25 MG TAB PO SCH ×2 (08:46→20:59)
[2021-12-31] MEDS: Sotalol HCl 80 MG TAB PO SCH ×2 (08:46→20:58)
[2021-12-31] MEDS: predniSONE 20 MG TAB PO SCH (08:46)
[2021-12-31] MEDS: Clopidogrel Bisulfate 75 MG TAB PO SCH (08:46)
[2021-12-31] MEDS: Empagliflozin 10 MG TAB PO SCH (08:46)
[2021-12-31] MEDS: Mometasone 100 MCG/Formoterol 5 MCG 120 PUFF INHALER INH SCH (19:27)
[2021-12-31] MEDS: Enoxaparin Sodium 40 MG/0.4 ML SYRINGE SC SCH (20:59)
[2021-12-31] MEDS: Atorvastatin Calcium 40 MG TAB PO SCH (20:59)
[2022-01-01 04:56] LABS: #Basophils 0.1 thou/uL (0.0-0.2); #Eosinphils 0.2 thou/uL (0.0-0.7); #Lymphocytes 1.4 thou/uL (1.20-3.40); #Monocytes 0.7 thou/uL (0.11-0.59); #Neutrophils 5.4 thou/uL (1.40-6.50); %Basophils 0.7 % (0.0-1.0); %Eosinophils 2.4 % (0.0-10.0); %Lymphocytes 18.5 % (21.0-51.0); %Monocytes 8.7 % (0.0-10.0); %Neutrophils 69.7 % (42.0-75.0); Hemoglobin 12.3 g/dL (14.0-18.0); Mean Corpuscular HGB CONC 34.2 g/dL (32.0-36.0); Mean Corpuscular Hemoglobin 33.4 pg (27.0-31.0); Mean Corpuscular Volume 97.5 fL (78.0-98.0); Mean Platelet Volume 8.1 fL (7.4-10.4); Platelet Count 178 thou/uL (130-400); RBC Distribution Width 13.1 % (11.5-14.5); White Blood Cell (WBC) Count 7.8 thou/uL (4.8-10.8)
[2022-01-01 05:23] LABS: Anion Gap 13 mmol/L (10-20); BUN (Urea Nitrogen) 14 mg/dL (8.4-25.7); Calc. Creatinine Clearance 81 mL/min (70-130); Calcium 8.9 mg/dL (7.8-10.44); Carbon Dioxide 25 mmol/L (23-31); Chloride 102 mmol/L (98-107); Estimated GFR 95; Glucose 84 mg/dL (80-115); Sodium 136 mmol/L (136-145)
[2022-01-01] MEDS ORDERED: Furosemide 20 MG/2 ML VIAL SLOW IVP SCH ×2 (06:00→18:00)
[2022-01-01] MEDS: Mometasone 100 MCG/Formoterol 5 MCG 120 PUFF INHALER INH SCH ×2 (07:26→19:02)
[2022-01-01] MEDS: Sacubitril 49 MG/Valsartan 51 MG TABLET PO SCH ×2 (09:09→20:56)
[2022-01-01] MEDS: Carvedilol 6.25 MG TAB PO SCH (09:09)
[2022-01-01] MEDS: Empagliflozin 10 MG TAB PO SCH (09:10)
[2022-01-01] MEDS: Clopidogrel Bisulfate 75 MG TAB PO SCH (09:10)
[2022-01-01] MEDS: predniSONE 20 MG TAB PO SCH (09:10)
[2022-01-01] MEDS: Aspirin 81 mg Enteric Coated Tablet PO SCH (09:10)
[2022-01-01] MEDS: Sotalol HCl 80 MG TAB PO SCH ×2 (10:27→20:56)
[2022-01-01] MEDS ORDERED: Midodrine HCl 5 MG TAB PO SCH ×3 (16:00→21:00)
[2022-01-01] MEDS: Enoxaparin Sodium 40 MG/0.4 ML SYRINGE SC SCH (20:56)
[2022-01-01] MEDS: Atorvastatin Calcium 40 MG TAB PO SCH (20:56)
[2022-01-01] MEDS ORDERED: Carvedilol 6.25 MG TAB PO SCH (21:00)
[2022-01-02 04:42] LABS: #Basophils 0.1 thou/uL (0.0-0.2); #Eosinphils 0.2 thou/uL (0.0-0.7); #Lymphocytes 1.4 thou/uL (1.20-3.40); #Neutrophils 5.8 thou/uL (1.40-6.50); %Basophils 0.8 % (0.0-1.0); %Eosinophils 2.6 % (0.0-10.0); %Monocytes 11.9 % (0.0-10.0); %Neutrophils 68.6 % (42.0-75.0); Hemoglobin 13.1 g/dL (14.0-18.0); Mean Corpuscular HGB CONC 33.4 g/dL (32.0-36.0); Mean Corpuscular Hemoglobin 32.4 pg (27.0-31.0); Mean Corpuscular Volume 96.9 fL (78.0-98.0); Platelet Count 204 thou/uL (130-400); RBC Distribution Width 13.2 % (11.5-14.5); Red Blood Cell (RBC) Count 4.05 mill/uL (4.70-6.10); White Blood Cell (WBC) Count 8.4 thou/uL (4.8-10.8)
[2022-01-02 05:09] LABS: Anion Gap 13 mmol/L (10-20); BUN (Urea Nitrogen) 24 mg/dL (8.4-25.7); Calc. Creatinine Clearance 79 mL/min (70-130); Calcium 9.1 mg/dL (7.8-10.44); Carbon Dioxide 26 mmol/L (23-31); Chloride 99 mmol/L (98-107); Estimated GFR 95; Glucose 85 mg/dL (80-115); Potassium 3.8 mmol/L (3.5-5.1); Sodium 134 mmol/L (136-145)
[2022-01-02] MEDS: Mometasone 100 MCG/Formoterol 5 MCG 120 PUFF INHALER INH SCH ×2 (06:56→18:47)
[2022-01-02] MEDS: Clopidogrel Bisulfate 75 MG TAB PO SCH (08:11)
[2022-01-02] MEDS: Aspirin 81 mg Enteric Coated Tablet PO SCH (08:11)
[2022-01-02] MEDS: predniSONE 20 MG TAB PO SCH (08:11)
[2022-01-02] MEDS: Empagliflozin 10 MG TAB PO SCH (08:12)
[2022-01-02] MEDS: Enoxaparin Sodium 40 MG/0.4 ML SYRINGE SC SCH (21:25)
[2022-01-02] MEDS: Atorvastatin Calcium 40 MG TAB PO SCH (21:25)
[2022-01-03 04:20] LABS: #Basophils 0.1 thou/uL (0.0-0.2); #Eosinphils 0.2 thou/uL (0.0-0.7); #Lymphocytes 1.8 thou/uL (1.20-3.40); #Neutrophils 5.7 thou/uL (1.40-6.50); %Eosinophils 2.6 % (0.0-10.0); %Lymphocytes 20.6 % (21.0-51.0); %Monocytes 11.4 % (0.0-10.0); %Neutrophils 64.4 % (42.0-75.0); Hemoglobin 13.9 g/dL (14.0-18.0); Mean Corpuscular HGB CONC 32.6 g/dL (32.0-36.0); Mean Corpuscular Hemoglobin 31.6 pg (27.0-31.0); Mean Platelet Volume 7.8 fL (7.4-10.4); Platelet Count 224 thou/uL (130-400); RBC Distribution Width 13.1 % (11.5-14.5); Red Blood Cell (RBC) Count 4.39 mill/uL (4.70-6.10); White Blood Cell (WBC) Count 8.8 thou/uL (4.8-10.8)
[2022-01-03 04:40] LABS: Anion Gap 13 mmol/L (10-20); BUN (Urea Nitrogen) 17 mg/dL (8.4-25.7); Calc. Creatinine Clearance 87 mL/min (70-130); Calcium 9.2 mg/dL (7.8-10.44); Carbon Dioxide 26 mmol/L (23-31); Chloride 100 mmol/L (98-107); Estimated GFR 97; Glucose 97 mg/dL (80-115); Potassium 3.9 mmol/L (3.5-5.1); Sodium 135 mmol/L (136-145)
[2022-01-03] MEDS: predniSONE 20 MG TAB PO SCH (07:50)
[2022-01-03] MEDS: Aspirin 81 mg Enteric Coated Tablet PO SCH (07:51)
[2022-01-03] MEDS: Clopidogrel Bisulfate 75 MG TAB PO SCH (07:51)
[2022-01-03] MEDS: Empagliflozin 10 MG TAB PO SCH (07:52)
[2022-01-03] MEDS: Mometasone 100 MCG/Formoterol 5 MCG 120 PUFF INHALER INH SCH (07:52)
[2022-01-03 07:54] VITALS: TEMP 98.6
[2022-01-03] MEDS ORDERED: Carvedilol 6.25 MG TAB PO SCH (08:00)
[2022-01-03] MEDS ORDERED: Furosemide 20 MG TAB PO SCH (09:00)
[2022-01-03 11:39] VITALS: BP 129/74
[2022-01-04] MEDS ORDERED: Spironolactone 25 MG TAB PO SCH (08:00)
[2022-01-04] MEDS ORDERED: Sotalol HCl 80 MG TAB PO SCH (09:00)
== END 2022-01-03 12:53 | disposition home or self-care (01) | DRG 291 ==
LOC: ERS 03:36 → ERHOLD 05:57 → 2NO 09:41
PROVIDERS: ADMIT Student in an Organized Health Care Education/Training Program; ATTEND Student in an Organized Health Care Education/Training Program
DX: I11.0 Hypertensive heart disease with heart failure (principal); I50.43 Acute on chronic combined systolic (congestive) and diastolic (congestive) heart failure; J44.1 Chronic obstructive pulmonary disease with (acute) exacerbation; Z20.822 Contact with and (suspected) exposure to COVID-19; E78.5 Hyperlipidemia, unspecified; I25.10 Atherosclerotic heart disease of native coronary artery without angina pectoris; F17.210 Nicotine dependence, cigarettes, uncomplicated; I42.9 Cardiomyopathy, unspecified; I95.2 Hypotension due to drugs; T44.7X5A Adverse effect of beta-adrenoreceptor antagonists, initial encounter; Z95.810 Presence of automatic (implantable) cardiac defibrillator; Z95.1 Presence of aortocoronary bypass graft; Z91.041 Radiographic dye allergy status; Z79.899 Other long term (current) drug therapy; Z79.82 Long term (current) use of aspirin; Z79.02 Long term (current) use of antithrombotics/antiplatelets; Z71.6 Tobacco abuse counseling; Z91.14 Patient's other noncompliance with medication regimen
CPT/HCPCS: 36415; 71045; 80048; 80053; 82550; 82553; 83690; 83735; 83880; 84443; 84484; 85025; 93005; 93306; 93798; 94640; 96374; 96375; J1100; J1650; J1940; J3475; J7512; J7611; J7620; J7799; U0002

== ENCOUNTER 2022-11-26 13:06 | Outpatient (CLI) | payer BC | END 2022-11-26 13:07 | disposition home or self-care (01) | LOC: RAD 13:06 | PROVIDERS: ATTEND Family Medicine | DX: M54.2 Cervicalgia (principal); M47.812 Spondylosis without myelopathy or radiculopathy, cervical region | CPT/HCPCS: 72040 ==

== ENCOUNTER 2022-11-27 08:41 | Emergency (ER) | payer BC | END 2022-11-27 13:33 | disposition home or self-care (01) | LOC: ERS 08:41 | DX: M54.2 Cervicalgia (principal); I50.9 Heart failure, unspecified; F17.210 Nicotine dependence, cigarettes, uncomplicated; Z79.82 Long term (current) use of aspirin | CPT/HCPCS: 99283 ==

== ENCOUNTER 2023-04-30 16:02 | Outpatient (CLI) | payer BC | END 2023-04-30 16:03 | disposition home or self-care (01) | LOC: BICRAD 16:02 | PROVIDERS: ATTEND Internal Medicine Cardiovascular Disease | DX: J44.9 Chronic obstructive pulmonary disease, unspecified (principal) | CPT/HCPCS: 71046 ==

== ENCOUNTER 2024-03-08 15:44 | Outpatient (CLI) | payer BC ==
[2024-03-08 16:45] LABS: #Basophils 0.12 10x3/uL (0.0-0.2); %Basophils 1.9 % (0.0-1.0); %Eosinophils 2.9 % (0.0-10.0); %Lymphocytes 18.2 % (21.0-51.0); %Monocytes 10.9 % (0.0-10.0); %Neutrophils 65.9 % (42.0-75.0); Hematocrit 42.8 % (42.0-52.0); Hemoglobin 14.4 g/dL (14.0-18.0); Mean Corpuscular HGB CONC 33.6 g/dL (32.0-36.0); Mean Corpuscular Hemoglobin 31.4 pg (27.0-31.0); Mean Corpuscular Volume 93.2 fL (78.0-98.0); Mean Platelet Volume 9.3 fL (7.4-10.4); Platelet Count 238 10x3/uL (130-400); Red Blood Cell (RBC) Count 4.59 mill/uL (4.70-6.10)
[2024-03-08 17:34] LABS: ALT (SGPT) 19 U/L (8-55); AST (SGOT) 25 U/L (5-34); Albumin 4.7 g/dL (3.4-4.8); Alkaline Phosphatase 92 U/L (40-110); Anion Gap 15 mmol/L (10-20); BUN (Urea Nitrogen) 8 mg/dL (8.4-25.7); Bilirubin, Total 0.9 mg/dL (0.2-1.2); Calc. Creatinine Clearance 0 mL/min (70-130); Calcium 9.7 mg/dL (7.8-10.44); Carbon Dioxide 26 mmol/L (23-31); Chloride 96 mmol/L (98-107); Estimated GFR 87; Globulin 3.3 g/dL (2.4-3.5); Glucose 90 mg/dL (80-115); Potassium 4.5 mmol/L (3.5-5.1); Sodium 132 mmol/L (136-145)
== END 2024-03-08 15:45 | disposition home or self-care (01) ==
LOC: LABBT 15:44
PROVIDERS: ATTEND Internal Medicine Cardiovascular Disease
DX: Z01.812 Encounter for preprocedural laboratory examination (principal); R07.9 Chest pain, unspecified
CPT/HCPCS: 80053; 85025

== ENCOUNTER 2024-03-10 05:27 | Day surgery (SDC) | payer BC ==
[2024-03-08 16:15] VITALS: BMI 22.3
[2024-03-10] MEDS ORDERED: Heparin 10,000 UNITS/ 10 ML VIAL ONE (07:16)
[2024-03-10] MEDS ORDERED: Nitroglycerin 50 MG/250 ML BOT 0 ML ONE (07:17)
[2024-03-10] MEDS ORDERED: fentaNYL 50 mcg/mL 1 mL Vial ONE (08:26)
[2024-03-10] MEDS ORDERED: Midazolam HCl 2 mg/2 ml Vial ONE (08:26)
[2024-03-10] MEDS ORDERED: Iopamidol 370 76% 100 ML VIAL ONE (11:13)
== END 2024-03-10 13:44 | disposition home or self-care (01) ==
LOC: SDC 05:27
PROVIDERS: ATTEND Internal Medicine Cardiovascular Disease
PROC: 4A023N7 Measurement of Cardiac Sampling and Pressure, Left Heart, Percutaneous Approach (ICD-10-PCS; principal; 2024-03-10)
DX: R07.89 Other chest pain (principal); E78.5 Hyperlipidemia, unspecified; I10 Essential (primary) hypertension; I48.91 Unspecified atrial fibrillation; I50.40 Unspecified combined systolic (congestive) and diastolic (congestive) heart failure; I49.3 Ventricular premature depolarization; E87.1 Hypo-osmolality and hyponatremia; I25.110 Atherosclerotic heart disease of native coronary artery with unstable angina pectoris; Z95.1 Presence of aortocoronary bypass graft; Z95.0 Presence of cardiac pacemaker; Z98.890 Other specified postprocedural states; F17.210 Nicotine dependence, cigarettes, uncomplicated; Z91.041 Radiographic dye allergy status
CPT/HCPCS: 93458; 93459; 99152; 99153; C1894; J1644; J2250; J3010; Q9967

== ENCOUNTER 2024-12-22 07:57 | Outpatient (CLI) | payer BC, MEDICARE ==
[2024-12-22 09:16] LABS: #Basophils 0.11 10x3/uL (0.0-0.2); #Eosinophils 0.20 10x3/uL (0.0-0.7); #Monocytes 0.52 10x3/uL (0.11-0.59); #Neutrophils 3.89 10x3/uL (1.40-6.50); %Basophils 1.9 % (0.0-1.0); %Eosinophils 3.5 % (0.0-10.0); %Lymphocytes 18.0 % (21.0-51.0); %Monocytes 9.0 % (0.0-10.0); %Neutrophils 67.3 % (42.0-75.0); Hematocrit 46.6 % (42.0-52.0); Hemoglobin 15.3 g/dL (14.0-18.0); Mean Corpuscular Hemoglobin 30.1 pg (27.0-31.0); Mean Corpuscular Volume 91.6 fL (78.0-98.0); Platelet Count 201 10x3/uL (130-400); Red Blood Cell (RBC) Count 5.09 mill/uL (4.70-6.10); White Blood Cell (WBC) Count 5.78 10x3/uL (4.8-10.8)
[2024-12-22 09:35] LABS: INR-International Normal Ratio 1.1; Prothrombin Time 14.1 sec (12.0-14.7)
[2024-12-22 09:36] LABS: PTT 32.7 sec (22.9-36.1)
[2024-12-22 09:42] LABS: Anion Gap 12 mmol/L (10-20); BUN (Urea Nitrogen) 6 mg/dL (8.4-25.7); Calc. Creatinine Clearance 0 mL/min (70-130); Calcium 9.3 mg/dL (7.8-10.44); Carbon Dioxide 26 mmol/L (23-31); Chloride 103 mmol/L (98-107); Glucose 91 mg/dL (80-115); Potassium 4.3 mmol/L (3.5-5.1); Sodium 137 mmol/L (136-145)
== END 2024-12-22 07:58 | disposition home or self-care (01) ==
LOC: LABBT 07:57
PROVIDERS: ATTEND Internal Medicine Cardiovascular Disease
DX: Z01.812 Encounter for preprocedural laboratory examination (principal); I47.10 Supraventricular tachycardia, unspecified
CPT/HCPCS: 80048; 85025; 85610; 85730

== ENCOUNTER 2024-12-27 06:24 | Observation (INO) | payer BC, MEDICARE ==
[2024-12-22 08:23] VITALS: BMI 22.9
[2024-12-27] MEDS ORDERED: Isoproterenol 0.2 MG/1 ML AMP ONE (06:54)
[2024-12-27] MEDS ORDERED: Heparin 10,000 UNITS/ 10 ML VIAL ONE (06:54)
[2024-12-27] MEDS ORDERED: fentaNYL PF 100 MCG/2 ML SYRINGE ONE (11:16)
[2024-12-27] MEDS ORDERED: Etomidate 40 MG (20 mL) VIAL ONE (11:17)
[2024-12-27] MEDS ORDERED: Ketamine In 0.9 % NaCl 50 MG/5 ML SYRINGE ONE (11:18)
[2024-12-27] MEDS ORDERED: PHENYLEPHRINE-NS 100 MCG/ML 10 ML SYRINGE ONE (11:45)
[2024-12-27] MEDS ORDERED: Rocuronium Bromide 10 MG/ML (10ML VIAL) ONE (11:45)
[2024-12-27] MEDS ORDERED: Lidocaine 1% PF 5 ML VIAL ONE (11:45)
[2024-12-27] MEDS ORDERED: Glycopyrrolate 0.2 MG/ML 5 ML SYRINGE ONE (11:45)
[2024-12-27] MEDS ORDERED: Ondansetron PF 4 MG/2 ML Vial ONE (11:45)
[2024-12-27] MEDS ORDERED: PROPOFOL 200 MG/20 ML VIAL ONE (11:45)
[2024-12-27] MEDS ORDERED: SUGAMMADEX SODIUM 200 MG/2 ML VIAL ONE (14:05)
[2024-12-27] MEDS ORDERED: Melatonin 3 MG TAB PO PRN (15:39)
[2024-12-27] MEDS ORDERED: Ondansetron PF 4 MG/2 ML Vial IVP PRN (15:39)
[2024-12-27] MEDS ORDERED: Acetaminophen 325 MG TAB PO PRN (15:39)
[2024-12-27] MEDS ORDERED: Senokot S 8.6-50 MG TAB PO PRN (15:39)
[2024-12-28 04:42] LABS: #Basophils 0.03 10x3/uL (0.0-0.2); #Eosinophils Less than 0.03 10x3/uL (0.0-0.7); #Monocytes 0.91 10x3/uL (0.11-0.59); #Neutrophils 6.66 10x3/uL (1.40-6.50); %Basophils 0.4 % (0.0-1.0); %Eosinophils 0.0 % (0.0-10.0); %Lymphocytes 7.2 % (21.0-51.0); %Monocytes 11.1 % (0.0-10.0); %Neutrophils 80.9 % (42.0-75.0); Hematocrit 43.2 % (42.0-52.0); Hemoglobin 13.9 g/dL (14.0-18.0); Mean Corpuscular Hemoglobin 30.3 pg (27.0-31.0); Mean Corpuscular Volume 94.1 fL (78.0-98.0); Platelet Count 163 10x3/uL (130-400); Red Blood Cell (RBC) Count 4.59 mill/uL (4.70-6.10); White Blood Cell (WBC) Count 8.22 10x3/uL (4.8-10.8)
[2024-12-28 04:59] LABS: Anion Gap 13 mmol/L (10-20); BUN (Urea Nitrogen) 14 mg/dL (8.4-25.7); Calc. Creatinine Clearance 73 mL/min (70-130); Calcium 8.4 mg/dL (7.8-10.44); Carbon Dioxide 25 mmol/L (23-31); Chloride 104 mmol/L (98-107); Glucose 117 mg/dL (80-115); Potassium 4.8 mmol/L (3.5-5.1); Sodium 137 mmol/L (136-145)
[2024-12-28] MEDS: Ezetimibe 10 MG TAB PO SCH (08:09)
[2024-12-28] MEDS: Apixaban 5 MG TAB PO SCH (08:11)
[2024-12-28] MEDS: Carvedilol 6.25 MG TAB PO SCH (08:11)
[2024-12-28 11:29] VITALS: BP 127/75; TEMP 98.3
== END 2024-12-28 13:02 | disposition home or self-care (01) ==
LOC: SDC 06:24 → OBS 16:30
PROVIDERS: ADMIT Internal Medicine Cardiovascular Disease; ATTEND Family Medicine
DX: I48.3 Typical atrial flutter (principal); I49.3 Ventricular premature depolarization; I47.20 Ventricular tachycardia, unspecified; Z79.01 Long term (current) use of anticoagulants; I50.43 Acute on chronic combined systolic (congestive) and diastolic (congestive) heart failure; I25.10 Atherosclerotic heart disease of native coronary artery without angina pectoris; J44.9 Chronic obstructive pulmonary disease, unspecified; Z88.8 Allergy status to other drugs, medicaments and biological substances; Z91.041 Radiographic dye allergy status; Z79.899 Other long term (current) drug therapy
CPT/HCPCS: 36415; 80048; 85025; 93005; 93623; 93653; C1730; C1732; C1759; C1760; C1769; C1893; C1894; J1100; J1644; J2405; J2704; J3490

== ENCOUNTER 2025-03-06 05:22 | Inpatient (IN) | payer BC, MEDICARE ==
[2025-03-06] MEDS ORDERED: dilTIAZem 25 MG/5 ML VIAL ONE ×2 (05:39→06:17)
[2025-03-06] MEDS ORDERED: Aspirin Chewable 81 MG TAB ONE (05:45)
[2025-03-06 05:48] LABS: #Basophils 0.11 10x3/uL (0.0-0.2); #Eosinophils 0.24 10x3/uL (0.0-0.7); #Monocytes 0.71 10x3/uL (0.11-0.59); #Neutrophils 4.34 10x3/uL (1.40-6.50); %Basophils 1.6 % (0.0-1.0); %Eosinophils 3.5 % (0.0-10.0); %Lymphocytes 21.2 % (21.0-51.0); %Monocytes 10.3 % (0.0-10.0); %Neutrophils 63.1 % (42.0-75.0); Hematocrit 45.1 % (42.0-52.0); Hemoglobin 15.6 g/dL (14.0-18.0); Mean Corpuscular Hemoglobin 30.8 pg (27.0-31.0); Mean Corpuscular Volume 89.0 fL (78.0-98.0); Platelet Count 191 10x3/uL (130-400); Red Blood Cell (RBC) Count 5.07 mill/uL (4.70-6.10); White Blood Cell (WBC) Count 6.88 10x3/uL (4.8-10.8)
[2025-03-06 06:19] LABS: ALT (SGPT) 16 U/L (Less than 45); AST (SGOT) 27 U/L (11-34); Albumin 4.5 g/dL (3.1-4.5); Alkaline Phosphatase 79 U/L (40-110); Anion Gap 16 mmol/L (10-20); BUN (Urea Nitrogen) 10 mg/dL (8.4-25.7); Bilirubin, Total 0.5 mg/dL (0.3-1.2); Calc. Creatinine Clearance 0 mL/min (70-130); Calcium 9.3 mg/dL (7.8-10.44); Carbon Dioxide 24 mmol/L (23-31); Chloride 104 mmol/L (98-107); Globulin 2.8 g/dL (2.4-3.5); Glucose 95 mg/dL (80-115); Potassium 4.5 mmol/L (3.5-5.1); Sodium 139 mmol/L (136-145)
[2025-03-06 06:20] LABS: INR-International Normal Ratio 0.9; PTT 28.0 sec (22.9-36.1); Prothrombin Time 12.6 sec (12.0-14.7)
[2025-03-06 09:02] LABS: Magnesium 2.2 mg/dL (1.6-2.6)
[2025-03-06] MEDS ORDERED: Furosemide 40 MG (4 mL) VIAL ONE (10:28)
[2025-03-06] MEDS ORDERED: Nitroglycerin 0.4 MG TAB (25 Tab Bottle) SL PRN (12:14)
[2025-03-06 14:04] VITALS: BMI 22.1
[2025-03-06] MEDS: Digoxin 0.5 MG/2 ML AMP SLOW IVP SCH (16:25)
[2025-03-06] MEDS ORDERED: Carvedilol 6.25 MG TAB PO SCH (17:00)
[2025-03-06] MEDS: Carvedilol 6.25 MG TAB PO SCH (21:52)
[2025-03-06] MEDS: Apixaban 5 MG TAB PO SCH (21:53)
[2025-03-07 05:24] LABS: Cardiac Risk 3.0 (Less than 4.5); Cholesterol 163.0 mg/dl (< 200 Desired); HDL Cholesterol 55.0 mg/dL (>60 Neg Risk); LDL Cholesterol, Calculated 78.0 mg/dL; Triglycerides 149.0 mg/dL (Less than 150)
[2025-03-07] MEDS: Carvedilol 6.25 MG TAB PO SCH (08:55)
[2025-03-07] MEDS: Ezetimibe 10 MG TAB PO SCH (08:56)
[2025-03-07] MEDS: Digoxin 0.125 MG TAB PO SCH (08:56)
[2025-03-07 11:41] VITALS: BP 101/63; TEMP 97.7
[2025-03-08] MEDS ORDERED: PNEUMOC 20-VAL CONJ-DIP CRM/PF 0.5 ML SYRINGE IM ONE (09:00)
== END 2025-03-07 14:00 | disposition home or self-care (01) | DRG 281 ==
LOC: ERS 05:22 → ERHOLD 11:28 → 2NO 13:53
PROVIDERS: ADMIT Internal Medicine; ATTEND Internal Medicine
DX: I47.10 Supraventricular tachycardia, unspecified (principal); I50.42 Chronic combined systolic (congestive) and diastolic (congestive) heart failure; I21.4 Non-ST elevation (NSTEMI) myocardial infarction; I82.509 Chronic embolism and thrombosis of unspecified deep veins of unspecified lower extremity; Z95.1 Presence of aortocoronary bypass graft; I25.10 Atherosclerotic heart disease of native coronary artery without angina pectoris; E78.5 Hyperlipidemia, unspecified; Z95.810 Presence of automatic (implantable) cardiac defibrillator; I48.91 Unspecified atrial fibrillation; Z91.041 Radiographic dye allergy status; F17.210 Nicotine dependence, cigarettes, uncomplicated; Z71.6 Tobacco abuse counseling; I25.5 Ischemic cardiomyopathy
CPT/HCPCS: 36415; 71045; 80053; 80061; 83036; 83735; 83880; 84484; 85025; 85610; 85730; 93005; 94760; 96374; J1160; J1940

== ENCOUNTER 2025-04-04 06:18 | Inpatient (IN) | payer BC, MEDICARE ==
[2025-04-04 06:58] LABS: #Basophils 0.13 10x3/uL (0.0-0.2); #Eosinophils 0.34 10x3/uL (0.0-0.7); #Monocytes 0.75 10x3/uL (0.11-0.59); #Neutrophils 4.38 10x3/uL (1.40-6.50); %Basophils 1.9 % (0.0-1.0); %Eosinophils 5.0 % (0.0-10.0); %Lymphocytes 17.2 % (21.0-51.0); %Monocytes 11.0 % (0.0-10.0); %Neutrophils 64.6 % (42.0-75.0); Hematocrit 43.3 % (42.0-52.0); Hemoglobin 14.8 g/dL (14.0-18.0); Mean Corpuscular Hemoglobin 30.9 pg (27.0-31.0); Mean Corpuscular Volume 90.4 fL (78.0-98.0); Platelet Count 174 10x3/uL (130-400); Red Blood Cell (RBC) Count 4.79 mill/uL (4.70-6.10); White Blood Cell (WBC) Count 6.79 10x3/uL (4.8-10.8)
[2025-04-04 07:13] LABS: ALT (SGPT) 16 U/L (Less than 45); AST (SGOT) 28 U/L (11-34); Albumin 4.3 g/dL (3.1-4.5); Alkaline Phosphatase 81 U/L (40-110); Anion Gap 14 mmol/L (10-20); BUN (Urea Nitrogen) 11 mg/dL (8.4-25.7); Bilirubin, Total 0.4 mg/dL (0.3-1.2); Calc. Creatinine Clearance 0 mL/min (70-130); Calcium 9.2 mg/dL (7.8-10.44); Carbon Dioxide 24 mmol/L (23-31); Chloride 104 mmol/L (98-107); Globulin 2.8 g/dL (2.4-3.5); Glucose 100 mg/dL (80-115); Magnesium 2.2 mg/dL (1.6-2.6); Potassium 4.4 mmol/L (3.5-5.1); Sodium 138 mmol/L (136-145)
[2025-04-04 07:17] LABS: INR-International Normal Ratio 1.0; PTT 29.9 sec (22.9-36.1); Prothrombin Time 13.7 sec (12.0-14.7)
[2025-04-04 07:47] LABS: Digoxin 0.47 ng/mL (0.8-2.0)
[2025-04-04] MEDS ORDERED: Aspirin 325 MG TAB ONE (08:09)
[2025-04-04] MEDS ORDERED: Furosemide 20 MG (2 mL) VIAL ONE (08:09)
[2025-04-04] MEDS ORDERED: Apixaban 5 MG TAB ONE (08:10)
[2025-04-04] MEDS ORDERED: Nitroglycerin 0.4 MG TAB (25 Tab Bottle) SL PRN (09:30)
[2025-04-04] MEDS ORDERED: Acetaminophen 325 MG TAB PO PRN (09:34)
[2025-04-04] MEDS ORDERED: Ondansetron PF 4 MG/2 ML Vial IVP PRN (09:34)
[2025-04-04] MEDS ORDERED: Calcium Carbonate 500 MG ChewTAB PO PRN (09:34)
[2025-04-04] MEDS ORDERED: Melatonin 3 MG TAB PO PRN (09:34)
[2025-04-04] MEDS ORDERED: Senokot S 8.6-50 MG TAB PO PRN (09:34)
[2025-04-04] MEDS ORDERED: Ipratropium Bromide 2.5 ml Neb NEB PRN (09:36)
[2025-04-04 11:39] VITALS: BMI 22.6
[2025-04-04] MEDS: Carvedilol 25 MG TAB PO SCH (12:21)
[2025-04-04] MEDS: Apixaban 5 MG TAB PO SCH (20:40)
[2025-04-04] MEDS: Carvedilol 6.25 MG TAB PO SCH (20:40)
[2025-04-05 05:01] LABS: #Basophils 0.09 10x3/uL (0.0-0.2); #Eosinophils 0.29 10x3/uL (0.0-0.7); #Monocytes 0.57 10x3/uL (0.11-0.59); #Neutrophils 3.57 10x3/uL (1.40-6.50); %Basophils 1.6 % (0.0-1.0); %Eosinophils 5.2 % (0.0-10.0); %Lymphocytes 18.8 % (21.0-51.0); %Monocytes 10.2 % (0.0-10.0); %Neutrophils 63.8 % (42.0-75.0); Hematocrit 41.8 % (42.0-52.0); Hemoglobin 13.7 g/dL (14.0-18.0); Mean Corpuscular Hemoglobin 30.5 pg (27.0-31.0); Mean Corpuscular Volume 93.1 fL (78.0-98.0); Platelet Count 148 10x3/uL (130-400); Red Blood Cell (RBC) Count 4.49 mill/uL (4.70-6.10); White Blood Cell (WBC) Count 5.59 10x3/uL (4.8-10.8)
[2025-04-05 05:36] LABS: Anion Gap 8 mmol/L (10-20); BUN (Urea Nitrogen) 13 mg/dL (8.4-25.7); Calc. Creatinine Clearance 80 mL/min (70-130); Calcium 8.8 mg/dL (7.8-10.44); Carbon Dioxide 27 mmol/L (23-31); Chloride 104 mmol/L (98-107); Glucose 94 mg/dL (80-115); Potassium 3.9 mmol/L (3.5-5.1); Sodium 135 mmol/L (136-145)
[2025-04-05] MEDS: Digoxin 0.125 MG TAB PO SCH (10:30)
[2025-04-05] MEDS: Spironolactone 25 MG TAB PO SCH (10:30)
[2025-04-05] MEDS: Ezetimibe 10 MG TAB PO SCH (10:30)
[2025-04-06] MEDS: Spironolactone 25 MG TAB PO SCH (11:01)
[2025-04-06 11:46] VITALS: BP 117/61; TEMP 98.3
== END 2025-04-06 16:40 | disposition home or self-care (01) | DRG 309 ==
LOC: ERS 06:18 → 2NO 08:37 → OBSVTOIN 04-05 11:49
PROVIDERS: ADMIT Family Medicine; ATTEND Internal Medicine
DX: I48.0 Paroxysmal atrial fibrillation (principal); I50.22 Chronic systolic (congestive) heart failure; I47.19 Other supraventricular tachycardia; I25.10 Atherosclerotic heart disease of native coronary artery without angina pectoris; J44.9 Chronic obstructive pulmonary disease, unspecified; I48.91 Unspecified atrial fibrillation; E78.5 Hyperlipidemia, unspecified; F17.210 Nicotine dependence, cigarettes, uncomplicated; I11.0 Hypertensive heart disease with heart failure; I25.2 Old myocardial infarction; Z88.8 Allergy status to other drugs, medicaments and biological substances; Z95.5 Presence of coronary angioplasty implant and graft; Z79.899 Other long term (current) drug therapy
CPT/HCPCS: 36415; 71045; 80048; 80053; 80162; 83735; 83880; 84443; 84484; 85025; 85610; 85730; 93005; 93010; 94760; 96374; J1940